=== PATIENT | male | born 1940 | race Caucasian/White ===

== ENCOUNTER 2017-03-18 16:39 | Inpatient (IN) ==
--- NOTE | 2017-03-18 17:13 | Emergency Department Note ---
Disposition Clinical Impression: Fluid retention, Peripheral edema, Cellulitis, Elevated troponin, Foot contusion Disposition: Admitted As Inpatient Condition: Good Referrals: Festus Joe DO [Primary Care Provider] - Forms: ED Satisfaction Letter General Adult HPI - General Chief complaint: ED Extremity Problem,Nontraumatic Stated complaint: bilateral leg swelling/weakness Time Seen by Provider: 03/18/17 16:53 Source: patient, EMS Limitations: no limitations Nursing Notes Reviewed: Yes Vital Signs Reviewed: Yes - History of Present Illness Pain Scale: 0 - Related Data Home Medications Medication Instructions Recorded Confirmed Bumetanide [Bumex] 2 mg PO DAILY 04/29/15 01/29/16 Metformin HCl [Fortamet] 1,000 mg PO BID 04/29/15 01/29/16 Methadone 20 mg PO Q8HR 04/29/15 01/29/16 OxyCODONE/APAP 10/325 [Percocet 1 each PO Q8HR PRN 04/29/15 01/29/16 10/325 MG] Metoprolol XL (24 HR) Succ [Toprol 25 mg PO DAILY 04/30/15 01/29/16 Xl] Previous Rx's Medication Instructions Recorded Lactobacillus [Culturelle] 1 each PO BID #14 cap.sprink 05/02/15 Rivaroxaban [Xarelto] 20 mg PO DAILY #30 tablet 05/02/15 Amoxicillin/Clavulanate [Augmentin] 875 mg PO BIDWM #20 tablet 01/29/16 Hydrocodone/Acetaminophen [[place] 1 each PO Q6H #16 tablet 01/29/16 5-325 Tablet] predniSONE [PredniSONE] 40 mg PO DAILY 5 Days tablet 01/29/16 Allergies Allergy/AdvReac Type Severity Reaction Status Date / Time No Known Allergies Allergy Verified 01/29/16 11:20 Past Medical History - Past Medical History Medical history: Reports: atrial fibrillation, cardiomyopathy, CHF, coronary artery disease, diabetes, hyperlipidemia, hypertension, peripheral artery disease, venous stasis Psychiatric history: Reports: anxiety - Social History Smoking Status: Former smoker Alcohol use: Reports: none Drug use: Reports: none Physical Exam - General Limitations: no limitations General appearance: alert, in no apparent distress Course Vital Signs Temperature 97.8 F 03/18/17 16:51 Pulse Rate 63 03/18/17 16:51 Respiratory Rate 18 03/18/17 16:51 Blood Pressure 197/100 03/18/17 16:51 O2 Sat by Pulse Oximetry 95 03/18/17 16:51 Temperature 97.8 F 03/18/17 16:51 Pulse Rate 61 03/18/17 18:28 Respiratory Rate 16 03/18/17 18:28 Blood Pressure 178/88 03/18/17 18:28 O2 Sat by Pulse Oximetry 98 03/18/17 18:28 Oxygen Delivery Oxygen Delivery Nasal Cannula Medical Decision Making - MDM Narrative Medical decision making narrative: I examined this patient and my medical decision-making was reviewed with the Resident Physician. I agree with the documented findings, disposition and treatment plan as described except to the extent set forth below. Patient seen and evaluated by the ER resident myself, I agree with her evaluation and management plan supervised the care of the patient's stay. Patient presents today with swelling edematous legs bilaterally say stopped his Lasix for 5 days as yet to take anymore so short miss of breath, but denies any chest pain. He is also diabetic and has a lesion on the anterior gonzalez surface of the leg and on his left toes as he said he got them caught underneath a piece of furniture. He does have pain in the area. He is not febrile at home. He is also supposed be on Xarelto for atrial fibrillation, but did not like taking it so he says that his doctor told him as well as he takes ibuprofen he should be fine. Going to go ahead and do a lab workup on him make sure that his legs are infected. Make sure there is no bony injury or foreign body, start him on IV antibiotics and then he will need admission. We will rule him out for cardiac cause also. 1750 hrs.: Patient's initial chest x-ray is negative for signs of CHF but he does large heart. We will start him on IV antibiotics for his leg. Chest X-Ray 03/18/17 17:10 IMPRESSION: 1. No acute cardiopulmonary abnormality. 2. Cardiomegaly. D/ / Amador Stockton MD / Amador Stockton MD Interpreting Provider: Amador Stockton MD Foot X-Ray 03/18/17 17:11 IMPRESSION: 1. No acute osseous abnormality of the left foot. 2. Osteopenia. 3. Diffuse soft tissue swelling. D/ / Amador Stockton MD / Amador Stockton MD Interpreting Provider: Amador Stockton MD 1818 hrs.: Patient asked that we put a Holm in because he is getting Lasix and a be urinating a lot. So we will go ahead and do that. Waiting on the rest of his labs return. 1830 hrs.: Spoke with hospitalist agreed to admission. Impression is bilateral lower extremity edema. #2 is cellulitis left leg. #3 is contusions and abrasions left toes. Number for his noncompliance of medication. - Lab Data Result diagrams: 03/18/17 17:42 03/18/17 17:42 Lab Results 03/18/17 03/18/17 03/18/17 Range/Units 17:42 17:42 17:42 WBC 5.4 (4.3-11.1) K/mcL RBC 3.65 L (4.19-5.50) M/mcL Hgb 11.1 L (12.9-16.9) g/dL Hct 32.8 L (37.5-50.1) % MCV 89.9 (83.0-100.0) fL MCH 30.4 (28.0-33.3) pg MCHC 33.8 (31.6-35.5) g/dL RDW 13.5 (11.5-14.5) % Plt Count 147 (140-400) K/mcL MPV 9.5 (9.4-12.4) fL Immature Gran % 0.2 (0-4) % Seg Neutrophils % 74.5 % Lymphocytes % 16.2 % Monocytes % 5.2 % Eosinophils % 3.5 % Basophils % 0.4 % Neutrophils # 4.0 (1.6-8.9) K/mcL Lymphocytes # 0.9 (0.6-4.6) K/mcL Monocytes # 0.3 (0.0-1.3) K/mcL Eosinophils # 0.2 (0.0-0.6) K/mcL Basophils # 0.0 (0.0-0.2) K/mcL Immature Plt Fraction 3.4 (1.1-6.1) % Sodium 138 (136-145) mEq/L Potassium 4.3 (3.5-4.5) mEq/L Chloride 103 (98-109) mEq/L Carbon Dioxide 25 (19-29) mEq/L BUN 14 (8-26) mg/dL Creatinine 1.32 H (0.72-1.25) mg/dL Est GFR ( Amer) > 60 (> 60) Est GFR (Non-Af Amer) 53 L (> 60) BUN/Creatinine Ratio 11 (6-26) Glucose 311 H (70-99) mg/dL Calculated Osmolality 298 (280-300) Calcium 8.7 (8.6-10.8) mg/dL Magnesium 1.5 L (1.6-2.6) mg/dL Total Bilirubin 0.6 (0.2-1.2) mg/dL Direct Bilirubin 0.3 (0.0-0.5) mg/dL Indirect Bilirubin 0.3 (0.0-1.2) mg/dL AST 19 (5-34) Units/L ALT 22 (0-55) Units/L Alkaline Phosphatase 129 H (38-126) Units/L Troponin I (0-0.03) ng/mL B-Natriuretic Peptide 278 H (0-100) pg/mL Serum Total Protein 7.1 (6.0-8.3) g/dL Albumin 3.3 L (3.5-5.0) g/dL Globulin 3.8 H (2.4-3.5) g/dL Albumin/Globulin Ratio 0.9 L (1.1-2.2) Urine Color (Yellow) Urine Clarity (Clear) Urine pH (5.0-8.0) pH Units Ur Specific [place] (1.010-1.025) Urine Protein (Neg-Trace) mg/dL Urine Glucose (UA) (Normal) mg/dL Urine Ketones (Negative) mg/dL Urine Blood (Negative) Urine Nitrite (Negative) Urine Bilirubin (Negative) Urine Urobilinogen (Normal) mg/dL Ur Leukocyte Esterase (Negative) Urine Microscopic RBC (0-3) per hpf Urine Microscopic WBC (0-3) per hpf Ur Squamous Epith Cells (None-Few) per lpf Urine Bacteria (None-Few) per hpf Hyaline Casts (None-Few) per lpf Ur Culture Indicated? (NO) 03/18/17 03/18/17 Range/Units 17:42 18:25 WBC (4.3-11.1) K/mcL RBC (4.19-5.50) M/mcL Hgb (12.9-16.9) g/dL Hct (37.5-50.1) % MCV (83.0-100.0) fL MCH (28.0-33.3) pg MCHC (31.6-35.5) g/dL RDW (11.5-14.5) % Plt Count (140-400) K/mcL MPV (9.4-12.4) fL Immature Gran % (0-4) % Seg Neutrophils % % Lymphocytes % % Monocytes % % Eosinophils % % Basophils % % Neutrophils # (1.6-8.9) K/mcL Lymphocytes # (0.6-4.6) K/mcL Monocytes # (0.0-1.3) K/mcL Eosinophils # (0.0-0.6) K/mcL Basophils # (0.0-0.2) K/mcL Immature Plt Fraction (1.1-6.1) % Sodium (136-145) mEq/L Potassium (3.5-4.5) mEq/L Chloride (98-109) mEq/L Carbon Dioxide (19-29) mEq/L BUN (8-26) mg/dL Creatinine (0.72-1.25) mg/dL Est GFR ( Amer) (> 60) Est GFR (Non-Af Amer) (> 60) BUN/Creatinine Ratio (6-26) Glucose (70-99) mg/dL Calculated Osmolality (280-300) Calcium (8.6-10.8) mg/dL Magnesium (1.6-2.6) mg/dL Total Bilirubin (0.2-1.2) mg/dL Direct Bilirubin (0.0-0.5) mg/dL Indirect Bilirubin (0.0-1.2) mg/dL AST (5-34) Units/L ALT (0-55) Units/L Alkaline Phosphatase (38-126) Units/L Troponin I 0.04 H* (0-0.03) ng/mL B-Natriuretic Peptide (0-100) pg/mL Serum Total Protein (6.0-8.3) g/dL Albumin (3.5-5.0) g/dL Globulin (2.4-3.5) g/dL Albumin/Globulin Ratio (1.1-2.2) Urine Color Yellow (Yellow) Urine Clarity Clear (Clear) Urine pH 6.0 (5.0-8.0) pH Units Ur Specific [place] 1.015 (1.010-1.025) Urine Protein Trace (Neg-Trace) mg/dL Urine Glucose (UA) 500 H (Normal) mg/dL Urine Ketones Negative (Negative) mg/dL Urine Blood Negative (Negative) Urine Nitrite Negative (Negative) Urine Bilirubin Negative (Negative) Urine Urobilinogen Normal (Normal) mg/dL Ur Leukocyte Esterase Negative (Negative) Urine Microscopic RBC 0-3 (0-3) per hpf Urine Microscopic WBC 0-3 (0-3) per hpf Ur Squamous Epith Cells Moderate H (None-Few) per lpf Urine Bacteria None Seen (None-Few) per hpf Hyaline Casts None Seen (None-Few) per lpf Ur Culture Indicated? NO (NO)
[2017-03-18] MEDS ORDERED: Furosemide 40 MG/4 ML VIAL IVP ONE (17:15)
[2017-03-18 17:51] LABS: Basophils % 0.4 %; Eosinophils # 0.2 K/mcL (0.0-0.6); Eosinophils % 3.5 %; Hematocrit 32.8 % (37.5-50.1); Hemoglobin 11.1 g/dL (12.9-16.9); Immature Granulocytes % 0.2 % (0-4); Immature Platelets 3.4 % (1.1-6.1); Lymphocytes # 0.9 K/mcL (0.6-4.6); Lymphocytes % 16.2 %; Mean Corpuscular HGB Conc 33.8 g/dL (31.6-35.5); Mean Corpuscular Hemoglobin 30.4 pg (28.0-33.3); Mean Corpuscular Volume 89.9 fL (83.0-100.0); Mean Platelet Volume 9.5 fL (9.4-12.4); Monocytes # 0.3 K/mcL (0.0-1.3); Monocytes % 5.2 %; Platelet Count 147 K/mcL (140-400); Red Blood Count 3.65 M/mcL (4.19-5.50); Red Cell Distribution Width 13.5 % (11.5-14.5); Segmented Neutrophils % 74.5 %
--- NOTE | 2017-03-18 17:54 | Emergency Department Note ---
Disposition Clinical Impression: Fluid retention, Peripheral edema, Elevated troponin Cellulitis Qualifiers: Site of cellulitis: unspecified site Qualified Code(s): L03.90 - Cellulitis, unspecified Foot contusion Qualifiers: Encounter type: initial encounter Laterality: left Qualified Code(s): S90.32XA - Contusion of left foot, initial encounter Disposition: Admitted As Inpatient Condition: Good Referrals: Festus Joe DO [Primary Care Provider] - Forms: ED Satisfaction Letter Time of Disposition: 18:43 General Adult HPI - General Chief complaint: ED Extremity Problem,Nontraumatic Stated complaint: bilateral leg swelling/weakness Time Seen by Provider: 03/18/17 16:53 Source: patient, EMS Mode of arrival: EMS Limitations: no limitations Nursing Notes Reviewed: Yes Vital Signs Reviewed: Yes - History of Present Illness HPI Narrative: 77-year-old male presenting to the emergency department with a chief complaint of bilateral lower extremity swelling. Patient states he has a history of CHF and is currently on Bumex at home. He states he got taking his medication and has not taken in the past 5 days. Patient denies any chest pain or shortness of breath. He defervesced 3+ pitting edema on exam. Patient also states he tripped and kicked his futon at home with his left foot. Patient states he has had left foot pain but has been able to ambulate since the incident. Patient also has complaint of left hip decubitus ulcer that is currently being treated at home. He states last admission to the hospital was over a year ago for fluid retention and cellulitis. Patient denies any fevers at home. Pain Scale: 0 - Related Data Home Medications Medication Instructions Recorded Confirmed Bumetanide [Bumex] 2 mg PO DAILY 04/29/15 01/29/16 Metformin HCl [Fortamet] 1,000 mg PO BID 04/29/15 01/29/16 Methadone 20 mg PO Q8HR 04/29/15 01/29/16 OxyCODONE/APAP 10/325 [Percocet 1 each PO Q8HR PRN 04/29/15 01/29/16 10/325 MG] Metoprolol XL (24 HR) Succ [Toprol 25 mg PO DAILY 04/30/15 01/29/16 Xl] Previous Rx's Medication Instructions Recorded Lactobacillus [Culturelle] 1 each PO BID #14 cap.sprink 05/02/15 Rivaroxaban [Xarelto] 20 mg PO DAILY #30 tablet 05/02/15 Amoxicillin/Clavulanate [Augmentin] 875 mg PO BIDWM #20 tablet 01/29/16 Hydrocodone/Acetaminophen [[place] 1 each PO Q6H #16 tablet 01/29/16 5-325 Tablet] predniSONE [PredniSONE] 40 mg PO DAILY 5 Days tablet 01/29/16 Allergies Allergy/AdvReac Type Severity Reaction Status Date / Time No Known Allergies Allergy Verified 01/29/16 11:20 All systems ED: reviewed and negative except as stated. Constitutional: Denies: fever, chills Eyes: Reports: as per HPI ENT ED: Reports: as per HPI Cardiovascular: Denies: chest pain, palpitations Respiratory: Denies: cough, dyspnea, wheezes Gastrointestinal: Denies: abdominal pain, nausea, vomiting Genitourinary: Reports: as per HPI Musculoskeletal: Reports: as per HPI Integumentary: Reports: as per HPI Neurological: Reports: as per HPI Psychiatric: Reports: as per HPI Endocrine: Reports: as per HPI Hematological/Lymphatic: Reports: as per HPI Allergic/Immunologic: Reports: as per HPI Past Medical History - Past Medical History Attestation: Yes The following information was validated with the patient. Medical history: Reports: atrial fibrillation, cardiomyopathy, CHF, coronary artery disease, diabetes, hyperlipidemia, hypertension, peripheral artery disease, venous stasis Psychiatric history: Reports: anxiety - Social History Smoking Status: Former smoker Alcohol use: Reports: none Drug use: Reports: none Physical Exam - General Limitations: no limitations General appearance: alert, in no apparent distress - Head Head exam: atraumatic, normocephalic, normal inspection - Eye Eye exam: Present: normal appearance. Absent: scleral icterus, conjunctival injection - Chest Chest inspection: Present: normal inspection, symmetric chest wall rise. Absent : tenderness, rash - Respiratory Respiratory exam: Present: other (Decreased breath sounds anterior and posterior bilaterally). Absent: respiratory distress, wheezes - Cardiovascular Cardiovascular exam: Present: regular rate, normal rhythm, normal heart sounds - Abdominal Exam Abdominal exam: Present: soft, Non-Tender. Absent: distention, guarding, rebound - Extremities Exam Extremities exam: Present: full ROM, other (3+ pitting edema in the bilateral lower extremities. Signs of venous stasis. Superficial ulcer noted in the left anterior tibia. Left foot is tender to touch with multiple superficial abrasions and nail avulsion noted.) - Neurological Exam Neurological exam: Present: alert, oriented X3 - Psychiatric Psychiatric exam: Present: normal affect, normal mood - Skin Skin exam: Present: warm, intact Course Course Narrative: 77-year-old male presenting to the emergency Department chief complaint of bilateral lower extremity swelling. Patient has a history of CHF and has stopped taking his Bumex at home. Patient also has a left foot injury. We will perform basic lab workup on the patient including blood cultures, CBC, CMP and BNP and troponin. We will also obtain an x-ray of the chest and foot. Patient's disposition will be admission to the hospital pending lab results. Patient's alert and oriented 3 in the room and stable vital signs at this time. He agrees with this plan. Superficial abrasion noted over the hip that he has covered for decubiti looks well healing with no discharge redness or swelling around the area. There is a nonhealing superficial ulcer noted on the tibia. We will start the patient on vancomycin as well. - Reevaluation(s) Reevaluation #1: Patient's troponin elevated at 0.04. He does have chronic kidney disease with stable creatinine level. He also has large amount of glucose in his urine but no urinary tract infection. Patient has no white blood cell count at this time. Patient is alert and oriented 3 in the room with stable vital signs at this time. We will plan to admit the patient at this time. I spoke with the hospitalist on-call Dr. Brewster who agrees to accept the patient at this time. Time: 18:41 Vital Signs Temperature 97.8 F 03/18/17 16:51 Pulse Rate 63 03/18/17 16:51 Respiratory Rate 18 03/18/17 16:51 Blood Pressure 197/100 03/18/17 16:51 O2 Sat by Pulse Oximetry 95 03/18/17 16:51 Temperature 97.8 F 03/18/17 16:51 Pulse Rate 61 03/18/17 18:28 Respiratory Rate 16 03/18/17 18:28 Blood Pressure 178/88 03/18/17 18:28 O2 Sat by Pulse Oximetry 98 03/18/17 18:28 Oxygen Delivery Oxygen Delivery Nasal Cannula Medical Decision Making - Lab Data Result diagrams: 03/18/17 17:42 03/18/17 17:42 Lab Results 03/18/17 03/18/17 03/18/17 Range/Units 17:42 17:42 17:42 WBC 5.4 (4.3-11.1) K/mcL RBC 3.65 L (4.19-5.50) M/mcL Hgb 11.1 L (12.9-16.9) g/dL Hct 32.8 L (37.5-50.1) % MCV 89.9 (83.0-100.0) fL MCH 30.4 (28.0-33.3) pg MCHC 33.8 (31.6-35.5) g/dL RDW 13.5 (11.5-14.5) % Plt Count 147 (140-400) K/mcL MPV 9.5 (9.4-12.4) fL Immature Gran % 0.2 (0-4) % Seg Neutrophils % 74.5 % Lymphocytes % 16.2 % Monocytes % 5.2 % Eosinophils % 3.5 % Basophils % 0.4 % Neutrophils # 4.0 (1.6-8.9) K/mcL Lymphocytes # 0.9 (0.6-4.6) K/mcL Monocytes # 0.3 (0.0-1.3) K/mcL Eosinophils # 0.2 (0.0-0.6) K/mcL Basophils # 0.0 (0.0-0.2) K/mcL Immature Plt Fraction 3.4 (1.1-6.1) % Sodium 138 (136-145) mEq/L Potassium 4.3 (3.5-4.5) mEq/L Chloride 103 (98-109) mEq/L Carbon Dioxide 25 (19-29) mEq/L BUN 14 (8-26) mg/dL Creatinine 1.32 H (0.72-1.25) mg/dL Est GFR ( Amer) > 60 (> 60) Est GFR (Non-Af Amer) 53 L (> 60) BUN/Creatinine Ratio 11 (6-26) Glucose 311 H (70-99) mg/dL Calculated Osmolality 298 (280-300) Calcium 8.7 (8.6-10.8) mg/dL Magnesium 1.5 L (1.6-2.6) mg/dL Total Bilirubin 0.6 (0.2-1.2) mg/dL Direct Bilirubin 0.3 (0.0-0.5) mg/dL Indirect Bilirubin 0.3 (0.0-1.2) mg/dL AST 19 (5-34) Units/L ALT 22 (0-55) Units/L Alkaline Phosphatase 129 H (38-126) Units/L Troponin I (0-0.03) ng/mL B-Natriuretic Peptide 278 H (0-100) pg/mL Serum Total Protein 7.1 (6.0-8.3) g/dL Albumin 3.3 L (3.5-5.0) g/dL Globulin 3.8 H (2.4-3.5) g/dL Albumin/Globulin Ratio 0.9 L (1.1-2.2) Urine Color (Yellow) Urine Clarity (Clear) Urine pH (5.0-8.0) pH Units Ur Specific [place] (1.010-1.025) Urine Protein (Neg-Trace) mg/dL Urine Glucose (UA) (Normal) mg/dL Urine Ketones (Negative) mg/dL Urine Blood (Negative) Urine Nitrite (Negative) Urine Bilirubin (Negative) Urine Urobilinogen (Normal) mg/dL Ur Leukocyte Esterase (Negative) Urine Microscopic RBC (0-3) per hpf Urine Microscopic WBC (0-3) per hpf Ur Squamous Epith Cells (None-Few) per lpf Urine Bacteria (None-Few) per hpf Hyaline Casts (None-Few) per lpf Ur Culture Indicated? (NO) 03/18/17 03/18/17 Range/Units 17:42 18:25 WBC (4.3-11.1) K/mcL RBC (4.19-5.50) M/mcL Hgb (12.9-16.9) g/dL Hct (37.5-50.1) % MCV (83.0-100.0) fL MCH (28.0-33.3) pg MCHC (31.6-35.5) g/dL RDW (11.5-14.5) % Plt Count (140-400) K/mcL MPV (9.4-12.4) fL Immature Gran % (0-4) % Seg Neutrophils % % Lymphocytes % % Monocytes % % Eosinophils % % Basophils % % Neutrophils # (1.6-8.9) K/mcL Lymphocytes # (0.6-4.6) K/mcL Monocytes # (0.0-1.3) K/mcL Eosinophils # (0.0-0.6) K/mcL Basophils # (0.0-0.2) K/mcL Immature Plt Fraction (1.1-6.1) % Sodium (136-145) mEq/L Potassium (3.5-4.5) mEq/L Chloride (98-109) mEq/L Carbon Dioxide (19-29) mEq/L BUN (8-26) mg/dL Creatinine (0.72-1.25) mg/dL Est GFR ( Amer) (> 60) Est GFR (Non-Af Amer) (> 60) BUN/Creatinine Ratio (6-26) Glucose (70-99) mg/dL Calculated Osmolality (280-300) Calcium (8.6-10.8) mg/dL Magnesium (1.6-2.6) mg/dL Total Bilirubin (0.2-1.2) mg/dL Direct Bilirubin (0.0-0.5) mg/dL Indirect Bilirubin (0.0-1.2) mg/dL AST (5-34) Units/L ALT (0-55) Units/L Alkaline Phosphatase (38-126) Units/L Troponin I 0.04 H* (0-0.03) ng/mL B-Natriuretic Peptide (0-100) pg/mL Serum Total Protein (6.0-8.3) g/dL Albumin (3.5-5.0) g/dL Globulin (2.4-3.5) g/dL Albumin/Globulin Ratio (1.1-2.2) Urine Color Yellow (Yellow) Urine Clarity Clear (Clear) Urine pH 6.0 (5.0-8.0) pH Units Ur Specific [place] 1.015 (1.010-1.025) Urine Protein Trace (Neg-Trace) mg/dL Urine Glucose (UA) 500 H (Normal) mg/dL Urine Ketones Negative (Negative) mg/dL Urine Blood Negative (Negative) Urine Nitrite Negative (Negative) Urine Bilirubin Negative (Negative) Urine Urobilinogen Normal (Normal) mg/dL Ur Leukocyte Esterase Negative (Negative) Urine Microscopic RBC 0-3 (0-3) per hpf Urine Microscopic WBC 0-3 (0-3) per hpf Ur Squamous Epith Cells Moderate H (None-Few) per lpf Urine Bacteria None Seen (None-Few) per hpf Hyaline Casts None Seen (None-Few) per lpf Ur Culture Indicated? NO (NO) - EKG Data EKG #1 EKG attestation: Yes I reviewed and interpreted this EKG. EKG results narrative: Multiple artifacts no appreciable P waves possible Atrial fibrillation. 6 bpm. QRS 97, QTC 377. Incomplete right bundle-branch block and nonspecific ST and T-wave abnormality. Compared to previous EKG completed on 04/29/2015no significant changes noted.
[2017-03-18] MEDS ORDERED: Vancomycin 2,000 MG in D5% in Water 250 ML IVPB SCH (18:00)
[2017-03-18 18:05] LABS: Alanine Aminotransferase 22 Units/L (0-55); Albumin 3.3 g/dL (3.5-5.0); Albumin/Globulin Ratio 0.9 (1.1-2.2); Alkaline Phosphatase 129 Units/L (38-126); Aspartate Amino Transferase 19 Units/L (5-34); BUN/Creatinine Ratio 11 (6-26); Bilirubin,Direct 0.3 mg/dL (0.0-0.5); Bilirubin,Indirect 0.3 mg/dL (0.0-1.2); Bilirubin,Total 0.6 mg/dL (0.2-1.2); Blood Urea Nitrogen 14 mg/dL (8-26); Calcium 8.7 mg/dL (8.6-10.8); Carbon Dioxide 25 mEq/L (19-29); Chloride 103 mEq/L (98-109); Globulin 3.8 g/dL (2.4-3.5); Glucose 311 mg/dL (70-99); Magnesium 1.5 mg/dL (1.6-2.6); Osmolality,Calculated 298 (280-300); Potassium 4.3 mEq/L (3.5-4.5); Sodium 138 mEq/L (136-145); Total Protein 7.1 g/dL (6.0-8.3); eGFR For African Americans > 60 (> 60); eGFR For Non-African Americans 53 (> 60)
[2017-03-18] MEDS ORDERED: Vancomycin 2,000 MG in D5% in Water 500 ML IVPB ONE (18:16)
[2017-03-18] MEDS ORDERED: Aspirin 325 MG TABLET PO ONE (18:19)
[2017-03-18 18:31] LABS: Bilirubin,Urine Negative (Negative); Blood,Urine Negative (Negative); Clarity,Urine Clear (Clear); Color,Urine Yellow (Yellow); Glucose,Urine (UA) 500 mg/dL (Normal); Ketones,Urine Negative (Negative); Leukocyte Esterase,Urine Negative (Negative); Nitrite,Urine Negative (Negative); Protein,Urine Trace mg/dL (Neg-Trace); Specific Gravity,Urine 1.015 (1.010-1.025); Urobilinogen,Urine Normal (Normal)
[2017-03-18 18:33] LABS: Bacteria,Urine None Seen per hpf (None-Few); Hyaline Casts,Urine None Seen per lpf (None-Few); RBC,Urine 0-3 per hpf (0-3); Squamous Epithelial Cell,Urine Moderate per lpf (None-Few); WBC,Urine 0-3 per hpf (0-3)
[2017-03-18] MEDS ORDERED: Naloxone 0.4 MG/ML INJ IVP PRN (19:33)
[2017-03-18] MEDS ORDERED: Ondansetron 4 MG/2 ML VIAL IVP PRN (19:33)
[2017-03-18] MEDS ORDERED: *HR* Morphine 2 MG/ML SYRINGE IVP PRN (19:33)
[2017-03-18] MEDS ORDERED: Acetaminophen 325 MG TABLET PO PRN (19:33)
[2017-03-18] MEDS ORDERED: *HR* Dextrose 50 % in Water (Syg) 50 ML SYRINGE IVP PRN (19:40)
[2017-03-18] MEDS ORDERED: Dextrose Gel 15 GM PO PRN ×2 (19:40)
[2017-03-18] MEDS ORDERED: D5% in Water 1,000 ML IVC PRN (19:40)
--- NOTE | 2017-03-18 21:07 | Internal Med History&Physical ---
Date of Encounter: 03/18/17 Time of Encounter: 20:30 Assessment and Plan (1) CHF (congestive heart failure) Current visit: Yes Status: Acute Acute exacerbation of chronic CHF, unspecified type, unknown LVEF - causing shortness of breath and worsening bilateral leg edema Continue IV Lasix, Toprol-XL, Aspirin, Simvastatin, O2 via NC Patient states he has not taken Bumex in several days, and states he stopped Xarelto a few years ago EKG - atrial fibrillation with no acute ST-T changes Troponin - 0.04, cycle troponin BNP - 278 Chest x-ray - cardiomegaly, no acute cardiopulmonary process Echocardiogram - pending Ultrasound Dopplers - pending Fluid restriction, cardiac telemetry, strict intake and output, daily weight, pulse ox, labs in a.m., monitor closely Qualifiers: Congestive heart failure type: unspecified congestive heart failure type Congestive heart failure chronicity: acute on chronic Qualified Code(s): I50.9 - Heart failure, unspecified (2) Cellulitis Current visit: Yes Status: Acute Acute cellulitis of left lower leg - with avulsion of left great toenail and also over left lower leg - with chronic stasis dermatitis Continue empiric IV Vancomycin Cultures - pending Foot x-ray - diffuse soft tissue swelling Ultrasound Doppler - pending Podiatry consult Dressing change daily to wounds, wound care consult Qualifiers: Site of cellulitis: extremity Site of cellulitis of extremity: lower extremity Laterality: left Qualified Code(s): L03.116 - Cellulitis of left lower limb (3) Atrial fibrillation Current visit: Yes Status: Chronic Chronic atrial fibrillation, rate controlled Continue home dose of Toprol-XL Patient states he stopped taking Xarelto a few years ago - we will need to confirm this Qualifiers: Atrial fibrillation type: chronic Qualified Code(s): I48.2 - Chronic atrial fibrillation (4) Stasis dermatitis of both legs Current visit: Yes Status: Chronic Chronic stasis dermatitis with bilateral lower legs severe edema Dressing change to wound daily Podiatry consult (5) Diabetes Current visit: Yes Status: Chronic Type 2 diabetes mellitus, [id number], hyperglycemia Continue insulin sliding scale, glucose checks Qualifiers: Diabetes mellitus type: type 2 Diabetes mellitus complication status: with kidney complications Diabetes mellitus complication detail: with chronic kidney disease 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 insulin 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: without jail use Chronic kidney disease stage: stage 3 (moderate) Qualified Code(s): E11.22 - Type 2 diabetes mellitus with diabetic chronic kidney disease; N18.3 - Chronic kidney disease, stage 3 (moderate); N18.3 - Chronic kidney disease, stage 3 (moderate) (6) Hypertension Current visit: Yes Status: Chronic Essential hypertension, controlled, monitor Continue home dose of Toprol-XL Qualifiers: Hypertension type: essential hypertension Qualified Code(s): I10 - Essential (primary) hypertension (7) Chronic kidney disease Current visit: Yes Status: Chronic Chronic kidney disease stage III, stable - creatinine and GFR likely at baseline Monitor labs closely Qualifiers: Chronic kidney disease stage: stage 3 (moderate) Qualified Code(s): N18.3 - Chronic kidney disease, stage 3 (moderate) (8) DVT prophylaxis Current visit: Yes Status: Acute Heparin subcutaneous every 8 hours Internal Medicine - H&P: HPI Chief complaint: Shortness of breath, edema Admitted From: Emergency Dept Plans for Post Hospital Care: Home History of present illness: Mr. Miller is a 77 year old male with PMH of chronic atrial fibrillation, hypertension, diabetes, CHF, cardiomyopathy, hyperlipidemia, peripheral artery disease, possible coronary artery disease, venous stasis with chronic lower leg wounds and anxiety. Patient presents to the ED with complaints of shortness of breath and worsening bilateral lower leg edema. Examined in the room. Patient is awake and alert. Not in any distress. Able to provide history. No family members at bedside. Patient is oriented to place and person. He is able to state the right date but not the year. He is able to answer questions appropriately. Able to verbalize well and follows commands well. Patient states he developed shortness of breath and worsening bilateral leg swelling about 2-4 days ago. He states he is not taking his Bumex over the past 5-6 days. Patient states it makes him go to the bathroom a lot, so he stopped taking it. Shortness of breath is worse with exertion and when laying flat. He denies chest pain. Patient states about 5 weeks ago he accidentally tripped and hurt his left great toe. There is now a wound which does not seem to be healing well. Patient states he has been cleaning the wound at home. Patient also states he has stopped taking Xarelto a few years ago because of the bad reviews that he read about. Patient states he also has a left decubitus ulcer which is being treated at home. He does not see a PCP and does not follow-up with cardiology. It is unclear as to who prescribes his medications. Patient states his made him come to the ED today. Patient denies abdominal pain or vomiting or diarrhea. No fever. No alleviating factors. No other associated symptoms. No other acute complaints. Initial workup in the ED reveals slightly elevated troponin and elevated BNP. Chest x-ray does not show any acute cardiac pulmonary process. X-ray of the left foot shows diffuse soft tissue swelling. EKG shows atrial fibrillation with no acute changes. Patient has been given IV Lasix and IV vancomycin. He is being admitted for acute CHF exacerbation and left lower extremity cellulitis. Patient has been explained about his condition and plan of care. He understood and agreed. No unanswered questions. CODE STATUS full code. Past Med Surg Social Fam HX - Past Medical History Medical history: atrial fibrillation, cardiomyopathy, CHF, coronary artery disease, diabetes, hyperlipidemia, hypertension, peripheral artery disease, venous stasis Psychiatric history: anxiety - Past Surgical History Surgical History: hip replacement (Left hip replacement) - Social History Smoking Status: Former smoker Alcohol use: none Drug use: none - Family History Father Hx Family Cardiac Disorders: Yes Internal Medicine - H&P: Meds Bumetanide [Bumex] 2 mg PO DAILY 04/29/15 [History] Metformin HCl [Fortamet] 1,000 mg PO BID 04/29/15 [History] Methadone 20 mg PO Q8HR 04/29/15 [History] OxyCODONE/APAP 10/325 [Percocet 10/325 MG] 1 each PO Q8HR PRN 04/29/15 [History] Metoprolol XL (24 HR) Succ [Toprol Xl] 25 mg PO DAILY 04/30/15 [History] Lactobacillus [Culturelle] 1 each PO BID #14 cap.sprink 05/02/15 [Rx] Rivaroxaban [Xarelto] 20 mg PO DAILY #30 tablet 05/02/15 [Rx] Amoxicillin/Clavulanate [Augmentin] 875 mg PO BIDWM #20 tablet 01/29/16 [Rx] Hydrocodone/Acetaminophen [Loa 5-325 Tablet] 1 each PO Q6H #16 tablet [Rx] predniSONE [PredniSONE] 40 mg PO DAILY 5 Days tablet 01/29/16 [Rx] 3 Allergy/AdvReac Type Severity Reaction Status Date / Time No Known Allergies Allergy Verified 01/29/16 11:20 All Systems PM: A 10-system review of systems was performed and is negative for pertinent findings except as documented above in the HPI. - Constitutional Constitutional: fatigue, no fever(s), no weakness - EENT Eyes: no blurry vision - Cardiovascular Cardiovascular ROS IM: dyspnea, dyspnea on exertion, edema, orthopnea, no chest pain, no diaphoresis, no lightheadedness, no palpitations, no syncope - Respiratory Respiratory: dyspnea, dyspnea on exertion, no cough, no hemoptysis, no wheezing , no chest congestion - Gastrointestinal Gastrointestinal: no abdominal pain, no bloating, no diarrhea, no hematochezia, no loose stools, no nausea, no vomiting - Genitourinary Genitourinary ROS male: no dysuria - Musculoskeletal Musculoskeletal ROS IM: no back pain - Neurological Neurological ROS: no abnormal gait, no confusion, no dizziness, no focal weakness, no numbness, no tingling - Constitutional Vitals: Temp Pulse Resp BP Pulse Ox 97.5 F L 62 20 170/90 99 03/18/17 20:11 03/18/17 20:11 03/18/17 20:11 03/18/17 20:11 03/18/17 20:11 General appearance: Present: cooperative, A&O X 3, morbidly obese, pleasant, no acute distress, answers questions appropriately Exam: Patient is able to verbalize and follows verbal commands. Seems chronically ill. He is oriented to place and person and states the right date, but not the right year. - Head Head exam: Present: atraumatic - Eye Eye exam: Present: EOMI - ENT ENT exam: Present: mucous membranes dry - Respiratory Respiratory exam: Present: CTAB. Absent: accessory muscle use, rales, respiratory distress, rhonchi, wheezes, tachypnea - Cardiovascular Cardiovascular exam: Present: irregular rhythm, +S1, +S2, systolic murmur - GI/Abdominal GI/Abdominal exam: Present: distended (Obese), soft. Absent: firm, guarding, tenderness - Extremities Exam Extremities exam: Present: pedal edema (Bilateral lower leg 4+ edema), radial pulses palpable and symmetrical. Absent: calf tenderness Additional comments: Chronic stasis dermatitis of both lower legs. Left lower leg cellulitis present. Wound over anterior aspect of left leg. Wound over left great toe with avulsion of left great toe nail. - Skin Additional comments: Left hip decubitus ulcer stage II. Internal Med - H&P Results - Labs CBC & Chem 7: 03/18/17 17:42 03/18/17 17:42
[2017-03-18] MEDS: Insulin LISPRO 300 UNITS/3 ML VIAL SQ SCH (23:47)
[2017-03-18] MEDS: Furosemide 40 MG/4 ML VIAL IVP SCH (23:47)
[2017-03-18] MEDS: *HR* Heparin 5,000 UNIT/ML VIAL SQ SCH (23:48)
[2017-03-19 02:54] LABS: Basophils % 0.5 %; Eosinophils # 0.5 K/mcL (0.0-0.6); Hematocrit 31.5 % (37.5-50.1); Hemoglobin 10.7 g/dL (12.9-16.9); Immature Granulocytes % 0.5 % (0-4); Immature Platelets 3.9 % (1.1-6.1); Lymphocytes # 1.8 K/mcL (0.6-4.6); Lymphocytes % 29.8 %; Mean Corpuscular Hemoglobin 30.5 pg (28.0-33.3); Mean Corpuscular Volume 89.7 fL (83.0-100.0); Mean Platelet Volume 9.2 fL (9.4-12.4); Monocytes # 0.5 K/mcL (0.0-1.3); Neutrophils # 3.1 K/mcL (1.6-8.9); Platelet Count 150 K/mcL (140-400); Red Blood Count 3.51 M/mcL (4.19-5.50); Red Cell Distribution Width 13.4 % (11.5-14.5); Segmented Neutrophils % 53.2 %
[2017-03-19 02:58] LABS: INR 1.3; Prothrombin Time 13.6 Seconds (9.4-12.1)
[2017-03-19 03:07] LABS: Hemoglobin A1C 7.7 %
[2017-03-19 03:10] LABS: BUN/Creatinine Ratio 10 (6-26); Blood Urea Nitrogen 14 mg/dL (8-26); Calcium 8.7 mg/dL (8.6-10.8); Carbon Dioxide 28 mEq/L (19-29); Chloride 102 mEq/L (98-109); Chol/HDL Ratio 5.6 (0-4.9); Cholesterol 179 mg/dL (< 200); Glucose 136 mg/dL (70-99); HDL Cholesterol 32 mg/dL (40-59); LDL Cholesterol,Calculated 131 mg/dL (0-99); Magnesium 2.1 mg/dL (1.6-2.6); Osmolality,Calculated 287 (280-300); Potassium 3.8 mEq/L (3.5-4.5); Sodium 137 mEq/L (136-145); Triglycerides 82 mg/dL (< 150); eGFR For African Americans > 60 (> 60); eGFR For Non-African Americans 50 (> 60)
[2017-03-19] MEDS ORDERED: Vancomycin 1,000 MG in D5% in Water 250 ML IVPB SCH (06:00)
[2017-03-19] MEDS: *HR* Heparin 5,000 UNIT/ML VIAL SQ SCH (06:29)
[2017-03-19] MEDS: Aspirin 81 MG TAB.CHEW PO SCH (08:38)
[2017-03-19] MEDS: Furosemide 40 MG/4 ML VIAL IVP SCH ×2 (08:38→17:28)
[2017-03-19] MEDS: Insulin LISPRO 300 UNITS/3 ML VIAL SQ SCH ×4 (08:39→21:12)
[2017-03-19] MEDS ORDERED: Metoprolol XL (24 HR) Succ 25 MG TAB.ER.24H PO SCH (09:00)
[2017-03-19] MEDS ORDERED: Heparin 25,000 UNIT/500 ML D5W 25,000 UNIT/500 ML MLS IVC SCH (09:30)
[2017-03-19] MEDS ORDERED: *HR* Heparin 5,000 UNIT/ML VIAL IVP PRN ×3 (09:34→09:57)
[2017-03-19] MEDS ORDERED: Perflutren Lipid Microsphere 1.3 ML in 0.9 % Sodium Chloride 8.7 ML IVP ONE (09:42)
[2017-03-19] MEDS: Heparin 25,000 UNIT/500 ML D5W 25,000 UNIT/500 ML MLS IVC SCH (11:46)
--- NOTE | 2017-03-19 13:47 | Cardiology Consult Note ---
<Migdalia Hallman - Last Filed: 03/19/17 13:41> Date of Encounter: 03/19/17 Time of Encounter: 12:00 Assessment and Plan (1) CHF (congestive heart failure) Current Visit: Yes Status: Acute Per cardiology: -Denies being told he has had CHF, however on bumex by PCP. -TTE pending. -BNP 278. -Significant edema noted to bilateral lower extremities. -Weight today 124kg, weight PCP 09/2016 125kg. -On lasix 40mg IV BID inpateint. -Currently net negative 1350ml. -chest x-ray with no acute process. -Strict i/os, fluid restriction, daily weights. -further recommendations pending TTE. -Will continue to monitor. Qualifiers: Congestive heart failure type: unspecified congestive heart failure type Congestive heart failure chronicity: acute on chronic Qualified Code(s): I50.9 - Heart failure, unspecified (2) Atrial fibrillation Current Visit: Yes Status: Chronic Per cardiology: -Known atrial fibrillation. -On beta maddy, -HR controlled. -Chads 2 vasc score 5 (age, HTN, CHF, DM). Currently on heparin drip. Had been on xarelto in outpatient setting. Patient stopped xarelto on his own accord due to seeing a negative commercial regarding medication. -Patient educated on increased risk of CVA/embolic event. Pateint states understanding and agreeable to restart fpc anticoagulation. Of note, prelimiary vascular report positive for DVT. -TTE pending. -Of note, pateint had 3.7 second pause nocturnal. Not diagnosed with sleep apnea. -Beta maddy stopped due to pause. -Will check overnight pulse ox. -Consider EP consult in am. -Consider stress in am pending TTE. Qualifiers: Atrial fibrillation type: chronic Qualified Code(s): I48.2 - Chronic atrial fibrillation (3) Elevated troponin Current Visit: Yes Status: Acute Per cardiology: -Troponins 0.04, 0.05, 0.05, 0.04 in the setting of DVT, CHF. -Denies chest pain. -ECG with no acute ischemic changes. -On heparin drip. -ON asa, statin. Beta maddy stopped for now due to significant pause. -TTE pending. -DO not suspect NSTEMI, suspect demand ischemia related to above. No cardiac rehab warranted. -Further recommendations pending TTE. -WIll make NPO after midnight for ischemic evaluation in am. -Will continue to monitor. Discussion w patient/family: The assessment and plan as outlined above was discussed with the patient who expressed understanding and agreement. All questions were answered. Thank you for involving us in the care of your patient. Please call with any questions. Discussed and reviewed with . History of Present Illness Consult date: 03/19/17 Requesting physician: Fadi Lynch Consult reason: CHF, a.fib Chief complaint: increased edema History of present illness: Mr. Miller is a 77 year old male with a relevant past medical history of a.fib , HTN, DM. Patient reports has known atrial fibrillation and had previous been on anticoagulation, however patient stopped xarelto due to "saw a bad TV commercial about medicine." Patient denies history of CHF, however states he has chronic peripheral edema that he was taking bumex for as prescribed by his PCP. Patient states he has been out of his bumex for several days. 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 Patient denies chest pain or increased shortness of breath. Patient reports fatigue is about baseline. Patient admits to increased peripheral edema. Past Med Surg Social Fam HX - Past Medical History Attestation: Yes The following information was validated with the patient. Source: patient, old records reviewed Medical history: atrial fibrillation, cardiomyopathy, CHF, coronary artery disease, diabetes, hyperlipidemia, hypertension, peripheral artery disease, venous stasis Psychiatric history: anxiety - Past Surgical History Surgical History: hip replacement - Social History Smoking Status: Former smoker Alcohol use: none Drug use: none - Family History Father Hx Family Cardiac Disorders: Yes Medications and Allergies Bumetanide [Bumex] 2 mg PO DAILY 04/29/15 [History] Metformin HCl [Fortamet] 1,000 mg PO BID 04/29/15 [History] Methadone 20 mg PO Q8HR 04/29/15 [History] OxyCODONE/APAP 10/325 [Percocet 10/325 MG] 1 tab PO Q8HR PRN 04/29/15 [History] Metoprolol XL (24 HR) Succ [Toprol Xl] 25 mg PO DAILY 04/30/15 [History] Potassium Chloride [Klor-Con 10] 10 meq PO DAILY 03/19/17 [History] Ramipril [Altace] 10 mg PO DAILY 03/19/17 [History] 3 Allergy/AdvReac Type Severity Reaction Status Date / Time No Known Allergies Allergy Verified 01/29/16 11:20 All Systems Review: A 10-system review of systems was performed and is negative for pertinent findings except as documented above in the HPI. - Cardiovascular Cardiovascular: as per HPI, leg edema Physical Examination Vital Signs, Last 4 Hours Temp Pulse Resp BP Pulse Ox 03/19/17 11:33 97.9 F 64 18 147/77 98 General: Conversant, No Apparent Distress HEENT: Atraumatic, Normocephaly, Mucus Membranes Moist Neck: No JVD, Normal carotid pulses Cardiac: Other (Irregularly irregular) Lungs: Normal Breath Sounds Neuro: Alert and responsive, No focal deficits noted Abdomen: Soft, Non-Tender Skin: No rashes noted on visualized skin, Other (Bilateral lower extremities discolored. ) Musculoskeletal: No Chest Wall Tenderness Extremities: No Clubbing, No Cyanosis, Normal Pulses, Other (3+ bilateral lower extremity pitting edema. ) Results 03/19/17 02:41 03/19/17 02:41 Lab Results Impressions Chest X-Ray 03/18/17 17:10 IMPRESSION: 1. No acute cardiopulmonary abnormality. 2. Cardiomegaly. D/ / Amador Stockton MD / Amador Stockton MD Interpreting Provider: Amador Stockton MD Foot X-Ray 03/18/17 17:11 IMPRESSION: 1. No acute osseous abnormality of the left foot. 2. Osteopenia. 3. Diffuse soft tissue swelling. D/ / Amador Stockton MD / Amador Stockton MD Interpreting Provider: Amador Stockton MD Pulmonary Perfusion Imaging 03/19/17 09:22 IMPRESSION: Low Probability for Pulmonary Embolus. D/ / Ubaldo Julien / Ubaldo Julien Interpreting Provider: Ubaldo Julien Active Medications Acetaminophen (Tylenol) 650 mg PO Q6HR PRN PRN Reason: Mild Pain (1-3) Stop: 09/17/17 19:34 Aspirin (Aspirin) 81 mg PO DAILY ANIBAL Stop: 09/18/17 09:01 Last Admin: 03/19/17 08:38 Dose: 81 mg Dextrose/Water (Dextrose 50% (Syg)) 25 ml IVP AD PRN PRN Reason: Hypoglycemia Stop: 09/17/17 19:41 Furosemide (Lasix) 40 mg IVP BIDDIURETIC ANIBAL Stop: 09/17/17 21:01 Last Admin: 03/19/17 08:38 Dose: 40 mg Glucagon (Glucagen) 1 mg IM ONCE PRN PRN Reason: Hypoglycemia Stop: 09/17/17 19:41 Glucose (Gluctose) 15 gm PO ONCE PRN PRN Reason: Hypoglycemia Stop: 09/17/17 19:41 Glucose (Gluctose) 30 gm PO ONCE PRN PRN Reason: Hypoglycemia Stop: 09/17/17 19:41 Heparin Sodium (Porcine) (Heparin) 8,700 unit 70 unit/kg (8700 unit) IVP Q6HR PRN PRN Reason: SEE COMMENTS Stop: 09/18/17 09:58 Heparin Sodium (Porcine) (Heparin) 4,300 unit 35 unit/kg (4300 unit) IVP Q6H PRN PRN Reason: SEE COMMENTS Stop: 09/18/17 09:58 Dextrose (Dextrose 5%) 1,000 mls @ 100 mls/hr IVC .Q10H PRN PRN Reason: HYPOGLYCEMIA Stop: 09/17/17 19:41 Vancomycin HCl 1,500 mg/ (Dextrose) 250 mls @ 166.67 mls/hr IVPB Q24H ANIBAL Stop: 09/18/17 18:01 Heparin Sodium/Dextrose (Heparin 25,000 Unit/500 Ml D5w) 25,000 unit in 500 mls @ 34.72 mls/hr IVC .[id number] ANIBAL; 14 UNIT/KG/HR PRN Reason: Protocol Stop: 09/18/17 10:01 Last Admin: 03/19/17 11:46 Dose: 14 unit/kg/hr, 34.72 mls/hr Insulin Human Lispro (Humalog) 0 units SQ HS ANIBAL PRN Reason: Protocol Stop: 09/17/17 21:01 Last Admin: 03/18/17 23:47 Dose: 6 units Insulin Human Lispro (Humalog) 0 units SQ TIDAC ANIBAL PRN Reason: Protocol Stop: 09/18/17 07:31 Last Admin: 03/19/17 11:47 Dose: 4 units Morphine Sulfate (Morphine Sulfate) 2 mg IVP Q4HR PRN PRN Reason: Severe Pain (7-10) Stop: 09/17/17 19:34 Naloxone HCl (Narcan) 0.4 mg IVP Q2MIN PRN PRN Reason: Opioid Reversal Stop: 09/17/17 19:34 Ondansetron HCl (Zofran) 4 mg IVP Q8HR PRN PRN Reason: Nausea And Vomiting Stop: 09/17/17 19:34 Simvastatin (Zocor) 20 mg PO HS ANIBAL PRN Reason: Protocol Stop: 09/17/17 21:01 Last Admin: 03/18/17 23:47 Dose: 20 mg Laboratory Tests 03/18/17 03/18/17 03/18/17 17:42 17:42 20:48 Hgb Potassium Creatinine Magnesium Troponin I 0.04 H* 0.05 H* B-Natriuretic Peptide 278 H TSH 03/19/17 03/19/17 03/19/17 02:41 02:41 02:41 Hgb 10.7 L Potassium 3.8 Creatinine 1.38 H Magnesium 2.1 Troponin I 0.05 H* B-Natriuretic Peptide TSH 03/19/17 03/19/17 08:35 08:35 Hgb Potassium Creatinine Magnesium Troponin I 0.04 H* B-Natriuretic Peptide TSH 1.941 - Imaging and Cardiology Chest Xray: report reviewed Echo: pending - EKG Interpretation EKG results cardiology: personally reviewed (ECG with atrial fibrillation, HR 65.), other (Telemetry reviewed with average HR previous 12 hours noted to be 60 atrial fibrillation. PVCs noted. Patient had a 3.7 second pause, nocturnal.) Consult Discharge Plan - Plan Referrals: Kayla Castellanos, [facility] [Primary Care Provider] - <Fish Cano - Last Filed: 03/19/17 22:12> Date of Encounter: 11/26/17 - Attending Attestation I have personally performed a face to face evaluation on this patient. I have reviewed and agree with the care plan. History and Exam by me shows: 1. Acute on chronic diastolic heart failure, improving with IV diuresis. He has been self adjusting his own medications based on TV commercials for the last several years, including discontinuing diuretic and anticoagulation medications. Shortness of breath and lower extremity swelling improving back on diuretic. Echo shows well preserved EF at 55%, 2. Persistant A fib, presenting in RVR, controlled wit beta blockade, however 3.7 second pause noted on tele, pt unaware, will hold beta blockade, but suspect will need PPMKR for Sick Sinus Syndrome, as will require at least one agent to control rapid ventricular response. 3. Elevated troponins, no chest pain or EKG changes, however multple risk factors, will order rogelio/cardiolyte in AM to eval for ischemic substrate. Assessment and Plan Discussion w patient/family: The assessment and plan as outlined above was discussed with the patient and/or family members who expressed understanding and agreement. All questions were answered. Thank you for involving us in the care of your patient. Please call with any questions. History of Present Illness History of present illness: Mr. Miller is a 77 year old male All Systems Review: A 10-system review of systems was performed and is negative for pertinent findings except as documented above in the HPI. Physical Examination Vital Signs, Last 4 Hours Temp Pulse Resp BP Pulse Ox 03/19/17 20:13 98.7 F 53 18 167/78 95 03/19/17 19:48 98 Results 03/19/17 02:41 03/19/17 02:41 Lab Results 03/19/17 03/19/17 03/19/17 02:41 02:41 02:41 WBC 5.9 Hgb 10.7 L Hct 31.5 L Plt Count 150 INR APTT Sodium 137 Potassium 3.8 Chloride 102 Carbon Dioxide 28 BUN 14 Creatinine 1.38 H Glucose 136 H Calcium 8.7 Magnesium 2.1 Troponin I 0.05 H* TSH 03/19/17 03/19/17 03/19/17 02:41 08:35 08:35 WBC Hgb Hct Plt Count INR 1.3 APTT Sodium Potassium Chloride Carbon Dioxide BUN Creatinine Glucose Calcium Magnesium Troponin I 0.04 H* TSH 1.941 03/19/17 18:34 WBC Hgb Hct Plt Count INR APTT 31.2 Sodium Potassium Chloride Carbon Dioxide BUN Creatinine Glucose Calcium Magnesium Troponin I TSH
[2017-03-19] MEDS: Vancomycin 1,500 MG in D5% in Water 250 ML IVPB SCH (17:28)
--- NOTE | 2017-03-19 17:37 | Internal Med Progress Note ---
Date of Encounter: 03/19/17 Time of Encounter: 11:00 - Assessment and plan (1) CHF (congestive heart failure) Current Visit: Yes Status: Acute Assessment and plan: -Patient with bilateral lower extremity edema and shortness of breath secondary to acute CHF. -Echocardiogram pending. -Continue IV diuresis. -Cardiology following and appreciate recommendations. Qualifiers: Congestive heart failure type: unspecified congestive heart failure type Congestive heart failure chronicity: acute on chronic Qualified Code(s): I50.9 - Heart failure, unspecified (2) Elevated troponin Current Visit: Yes Status: Acute Assessment and plan: -Now trending downward; suspect secondary to ischemia. -Echocardiogram pending and cardiology following. (3) Foot contusion Current Visit: Yes Status: Acute Assessment and plan: -Will continue vancomycin -Podiatry consulted and appreciate recommendations. Qualifiers: Encounter type: initial encounter Laterality: left Qualified Code(s): S90.32XA - Contusion of left foot, initial encounter (4) Atrial fibrillation Current Visit: Yes Status: Chronic Assessment and plan: -Controlled on beta maddy but patient discontinued oral anticoagulation medication without medical advice. -Patient currently on heparin drip due to DVT with suspected PE. Qualifiers: Atrial fibrillation type: chronic Qualified Code(s): I48.2 - Chronic atrial fibrillation (5) Hypertension Current Visit: Yes Status: Chronic Assessment and plan: -Controlled; continue home medications. Qualifiers: Hypertension type: essential hypertension Qualified Code(s): I10 - Essential (primary) hypertension (6) Diabetes Current Visit: Yes Status: Chronic Assessment and plan: -Controlled; sliding scale insulin Qualifiers: Diabetes mellitus type: type 2 Diabetes mellitus complication status: with kidney complications Diabetes mellitus complication detail: with chronic kidney disease Diabetes mellitus oil heaterman insulin use: without oil heaterman use Chronic kidney disease stage: stage 3 (moderate) Qualified Code(s): E11.22 - Type 2 diabetes mellitus with diabetic chronic kidney disease; N18.3 - Chronic kidney disease, stage 3 (moderate); N18.3 - Chronic kidney disease, stage 3 (moderate) (7) Chronic kidney disease Current Visit: Yes Status: Chronic Assessment and plan: -Stable; continue to monitor. Qualifiers: Chronic kidney disease stage: stage 3 (moderate) Qualified Code(s): N18.3 - Chronic kidney disease, stage 3 (moderate) (8) DVT prophylaxis Current Visit: Yes Status: Acute Assessment and plan: -Heparin drip - Subjective Interval history: Patient with no issues or complaints this morning. - Constitutional Vitals: Temp Pulse Resp BP Pulse Ox 97.8 F 64 18 173/88 97 03/19/17 15:55 03/19/17 15:55 03/19/17 15:55 03/19/17 15:55 03/19/17 15:55 General appearance: Present: cooperative, A&O X 3, morbidly obese, pleasant, no acute distress, answers questions appropriately - Respiratory Respiratory exam: Present: CTAB. Absent: accessory muscle use, rales, rhonchi, wheezes - Cardiovascular Cardiovascular exam: Present: RRR, +S1, +S2. Absent: diastolic murmur, gallop, rubs, systolic murmur - Expanded Lower Extremities Exam Ankle exam: Present: swelling (Bilateral lower extremity edema) Internal Medicine: Result - Labs CBC & Chem 7: 03/19/17 02:41 03/19/17 02:41 Labs: Short CBC 03/19/17 Range/Units 02:41 WBC 5.9 (4.3-11.1) K/mcL Hgb 10.7 L (12.9-16.9) g/dL Hct 31.5 L (37.5-50.1) % Plt Count 150 (140-400) K/mcL Neutrophils # 3.1 (1.6-8.9) K/mcL BMP 03/19/17 02:41 Sodium 137 Potassium 3.8 Chloride 102 Carbon Dioxide 28 BUN 14 Creatinine 1.38 H Glucose 136 H Calcium 8.7 Cardiac Enzymes 03/18/17 03/19/17 03/19/17 Range/Units 20:48 02:41 08:35 Troponin I 0.05 H* 0.05 H* 0.04 H* (0-0.03) ng/mL - ABG Interpretation ABG results: PT/INR, D-dimer PT 13.6 Seconds (9.4-12.1) H 03/19/17 02:41 - Impressions Impressions Pulmonary Perfusion Imaging 03/19/17 09:22 IMPRESSION: Low Probability for Pulmonary Embolus. D/ / Ubaldo Julien / Ubaldo Julien Interpreting Provider: Ubaldo Julien Echocardiogram 03/19/17 19:35 Impressions: Technically adequate exam. Atrial fibrillation. Normal LV chamber size, wall thickness and function. LVEF 65%. Mildly dilated left atrium. Trace mitral regurgitation. Mild tricuspid regurgitation. Left Ventricular Wall Motion: Rest Echo Findings All wall segments showed normal motion. Findings: Study Quality * Technically adequate exam. * ECG Findings * Atrial fibrillation. Left Ventricle * Normal LV chamber size, wall thickness and function. * normal. left ventricular diastolic dysfunction. * There is no LV thrombus. * Definity echo contrast was used. * LVEF 65%. Right Ventricle * Normal right ventricular structure and function. Left Atrium * Mildly dilated left atrium. Right Atrium * Normal right atrial size. Interatrial Septum * No evidence of PFO by color Doppler. Aortic Valve * Trileaflet aortic valve. * Trileaflet aortic valve with normal function. Mitral Valve * Normal mitral valve structure. * Trace mitral regurgitation. Tricuspid Valve * Normal tricuspid valve structure. * Mild tricuspid regurgitation. Pulmonic Valve * Pulmonic valve is not well visualized. Aorta * Normally sized aortic root. Pericardium * The pericardium appears normal. Consult Discharge Plan - Plan Referrals: Kayla Castellanos, DIAL BRUSHER [Primary Care Provider] -
[2017-03-20] MEDS: Lisinopril 20 MG TABLET PO SCH (08:32)
[2017-03-20] MEDS: Insulin LISPRO 300 UNITS/3 ML VIAL SQ SCH ×4 (08:32→23:02)
[2017-03-20] MEDS: Aspirin 81 MG TAB.CHEW PO SCH (08:32)
[2017-03-20] MEDS: Furosemide 40 MG/4 ML VIAL IVP SCH ×2 (08:32→16:50)
[2017-03-20] MEDS: Heparin 25,000 UNIT/500 ML D5W 25,000 UNIT/500 ML MLS IVC SCH ×2 (08:43→23:00)
[2017-03-20] MEDS ORDERED: Metoprolol XL (24 HR) Succ 25 MG TAB.ER.24H PO SCH (09:00)
[2017-03-20 09:01] LABS: BUN/Creatinine Ratio 13 (6-26); Blood Urea Nitrogen 18 mg/dL (8-26); Calcium 8.3 mg/dL (8.6-10.8); Carbon Dioxide 28 mEq/L (19-29); Chloride 100 mEq/L (98-109); Glucose 130 mg/dL (70-99); Osmolality,Calculated 288 (280-300); Potassium 3.6 mEq/L (3.5-4.5); Sodium 137 mEq/L (136-145); eGFR For African Americans > 60 (> 60); eGFR For Non-African Americans 52 (> 60)
[2017-03-20 09:23] LABS: Basophils % 0.5 %; Eosinophils # 0.5 K/mcL (0.0-0.6); Eosinophils % 8.8 %; Hematocrit 30.8 % (37.5-50.1); Hemoglobin 10.4 g/dL (12.9-16.9); Immature Granulocytes % 0.4 % (0-4); Lymphocytes # 1.8 K/mcL (0.6-4.6); Lymphocytes % 32.8 %; Mean Corpuscular HGB Conc 33.8 g/dL (31.6-35.5); Mean Corpuscular Hemoglobin 30.2 pg (28.0-33.3); Mean Corpuscular Volume 89.5 fL (83.0-100.0); Mean Platelet Volume 10.4 fL (9.4-12.4); Monocytes # 0.4 K/mcL (0.0-1.3); Neutrophils # 2.8 K/mcL (1.6-8.9); Platelet Count 123 K/mcL (140-400); Red Blood Count 3.44 M/mcL (4.19-5.50); Red Cell Distribution Width 13.2 % (11.5-14.5); Segmented Neutrophils % 50.5 %
[2017-03-20 09:40] LABS: Activated Partial Thrombo Time > 360.0 Seconds (26.0-36.0)
--- NOTE | 2017-03-20 10:54 | Electrocardiograph Report ---
[place] [address] Test Date: 2017-03-18 Pat Name: Rob Miller Department: 104 Room: BANNER0 Gender: M Line Installer: [facility] : 1940 Requested By: Zahra Cadena Order Number: [id number] Reading MD: Ankur Richards MD Measurements Intervals [place] Rate: 65 P: [place]: 0 QRS: -19 QRSD: 97 T: 84 QT: 366 QTc: 377 Interpretive Statements ATRIAL FIBRILLATION INCOMPLETE RIGHT BUNDLE BRANCH BLOC BASELINE ARTIFACT, REPEAT EKGK Electronically Signed On 03-20-2017 10:53:38 EST by Ankur Richards MD
--- NOTE | 2017-03-20 13:00 | Electrophysiology Consult Note ---
<Migdlaia Hallman - Last Filed: 03/20/17 13:01> Date of Encounter: 03/20/17 Time of Encounter: 10:00 Assessment and Plan (1) Atrial fibrillation Current Visit: Yes Status: Chronic Per cardiology: -Known atrial fibrillation, unknown chronicity. -Was on beta maddy in outpatient setting, now stopped. -HR controlled, average HR previous 12 hours noted to be 58. -Chads 2 vasc score 5 (age, HTN, CHF, DM). Currently on heparin drip. Had been on xarelto in outpatient setting. Patient stopped xarelto on his own accord due to seeing a negative commercial regarding medication. -Patient educated on increased risk of CVA/embolic event. Pateint states understanding and agreeable to restart terminal make up operator anticoagulation. Of note, prelimiary vascular report positive for DVT. -TTE with LVEF 65%, mildly dilated left atrium, trace TR, mild MR, all wall segments with normal motion. -Of note, pateint had 3.8 second pause nocturnal. Not diagnosed with sleep apnea. Overnight trending pulse ox ordered, not available for review at this time. -Denies dizziness or lightheadedness. Patient is sleeping during pauses. -Awaiting overnight pulse ox results. -Will discuss and review with Dr.John Whitfield for recommendations for atrial fibrillation with 3.8 second nocturnal pause. Qualifiers: Atrial fibrillation type: chronic Qualified Code(s): I48.2 - Chronic atrial fibrillation Discussion w patient/family: The assessment and plan as outlined above was discussed with the patient who expressed understanding and agreement. All questions were answered. Thank you for involving us in the care of your patient. Please call with any questions. Discussed and reviewed with Dr.John Whitfield. History of Present Illness Consult date: 03/20/17 Requesting physician: Luis Arora Consult reason: a.fib, pause on telemetry Chief complaint: increased peripheral edema History of present illness: Mr. Miller is a 77 year old male with a relevant past medical history of a.fib , HTN, DM. Electrophysiology has been asked to see and evaluate patient due to atrial fibrillation and significant pauses noted per telemetry. Patient denies palpitations or fluttering. Patient denies dizziness or lightheadedness. Patient denies history of sleep apnea, however is unsure if he has ever been testing. Past Med Surg Social Fam HX - Past Medical History Attestation: Yes The following information was validated with the patient. Source: patient, old records reviewed Medical history: atrial fibrillation, cardiomyopathy, CHF, coronary artery disease, diabetes, hyperlipidemia, hypertension, peripheral artery disease, venous stasis Psychiatric history: anxiety - Past Surgical History Surgical History: hip replacement - Social History Smoking Status: Former smoker Alcohol use: none Drug use: none - Family History Father Hx Family Cardiac Disorders: Yes Medications and Allergies Bumetanide [Bumex] 2 mg PO DAILY 04/29/15 [History] Metformin HCl [Fortamet] 1,000 mg PO BID 04/29/15 [History] Methadone 20 mg PO Q8HR 04/29/15 [History] OxyCODONE/APAP 10/325 [Percocet 10/325 MG] 1 tab PO Q8HR PRN 04/29/15 [History] Metoprolol XL (24 HR) Succ [Toprol Xl] 25 mg PO DAILY 04/30/15 [History] Potassium Chloride [Klor-Con 10] 10 meq PO DAILY 03/19/17 [History] Ramipril [Altace] 10 mg PO DAILY 03/19/17 [History] 3 Allergy/AdvReac Type Severity Reaction Status Date / Time No Known Allergies Allergy Verified 01/29/16 11:20 All Systems Review: A 10-system review of systems was performed and is negative for pertinent findings except as documented above in the HPI. - Cardiovascular Cardiovascular: as per HPI, leg edema Physical Examination Vital Signs, Last 4 Hours Temp Pulse Resp BP Pulse Ox 03/20/17 11:10 97.7 F 46 18 125/63 95 03/20/17 10:00 97 General: Conversant, No Apparent Distress HEENT: Atraumatic, Normocephaly, Mucus Membranes Moist Neck: No JVD, Normal carotid pulses Cardiac: Other (Irregularly irregular) Lungs: Normal Breath Sounds, No Wheeze, Rales, Rhonchi Neuro: Alert and responsive, No focal deficits noted Abdomen: Soft, Non-Tender Skin: No rashes noted on visualized skin Musculoskeletal: No Chest Wall Tenderness Extremities: No Clubbing, No Cyanosis, Normal Pulses, Other (Bilateral pedal edema noted. ) Results 03/20/17 08:29 03/20/17 08:29 Lab Results Impressions Echocardiogram 03/19/17 19:35 Impressions: Technically adequate exam. Atrial fibrillation. Normal LV chamber size, wall thickness and function. LVEF 65%. Mildly dilated left atrium. Trace mitral regurgitation. Mild tricuspid regurgitation. Left Ventricular Wall Motion: Rest Echo Findings All wall segments showed normal motion. Findings: Study Quality * Technically adequate exam. * ECG Findings * Atrial fibrillation. Left Ventricle * Normal LV chamber size, wall thickness and function. * normal. left ventricular diastolic dysfunction. * There is no LV thrombus. * Definity echo contrast was used. * LVEF 65%. Right Ventricle * Normal right ventricular structure and function. Left Atrium * Mildly dilated left atrium. Right Atrium * Normal right atrial size. Interatrial Septum * No evidence of PFO by color Doppler. Aortic Valve * Trileaflet aortic valve. * Trileaflet aortic valve with normal function. Mitral Valve * Normal mitral valve structure. * Trace mitral regurgitation. Tricuspid Valve * Normal tricuspid valve structure. * Mild tricuspid regurgitation. Pulmonic Valve * Pulmonic valve is not well visualized. Aorta * Normally sized aortic root. Pericardium * The pericardium appears normal. Active Medications Acetaminophen (Tylenol) 650 mg PO Q6HR PRN PRN Reason: Mild Pain (1-3) Stop: 09/17/17 19:34 Aspirin (Aspirin) 81 mg PO DAILY ANIBAL Stop: 09/18/17 09:01 Last Admin: 03/20/17 08:32 Dose: 81 mg Dextrose/Water (Dextrose 50% (Syg)) 25 ml IVP AD PRN PRN Reason: Hypoglycemia Stop: 09/17/17 19:41 Furosemide (Lasix) 40 mg IVP BIDDIURETIC ANIBAL Stop: 09/17/17 21:01 Last Admin: 03/20/17 08:32 Dose: 40 mg Glucagon (Glucagen) 1 mg IM ONCE PRN PRN Reason: Hypoglycemia Stop: 09/17/17 19:41 Glucose (Gluctose) 15 gm PO ONCE PRN PRN Reason: Hypoglycemia Stop: 09/17/17 19:41 Glucose (Gluctose) 30 gm PO ONCE PRN PRN Reason: Hypoglycemia Stop: 09/17/17 19:41 Heparin Sodium (Porcine) (Heparin) 8,700 unit 70 unit/kg (8700 unit) IVP Q6HR PRN PRN Reason: SEE COMMENTS Stop: 09/18/17 09:58 Last Admin: 03/20/17 01:06 Dose: 8,700 unit Heparin Sodium (Porcine) (Heparin) 4,300 unit 35 unit/kg (4300 unit) IVP Q6H PRN PRN Reason: SEE COMMENTS Stop: 09/18/17 09:58 Dextrose (Dextrose 5%) 1,000 mls @ 100 mls/hr IVC .Q10H PRN PRN Reason: HYPOGLYCEMIA Stop: 09/17/17 19:41 Vancomycin HCl 1,500 mg/ (Dextrose) 250 mls @ 166.67 mls/hr IVPB Q24H ANIBAL Stop: 09/18/17 18:01 Last Admin: 03/19/17 17:28 Dose: 166.67 mls/hr Heparin Sodium/Dextrose (Heparin 25,000 Unit/500 Ml D5w) 25,000 unit in 500 mls @ 34.72 mls/hr IVC .[id number] ANIBAL; 14 UNIT/KG/HR PRN Reason: Protocol Stop: 09/18/17 10:01 Last Admin: 03/20/17 08:43 Dose: 17.74 unit/kg/hr, 44 mls/hr Insulin Human Lispro (Humalog) 0 units SQ HS ANIBAL PRN Reason: Protocol Stop: 09/17/17 21:01 Last Admin: 03/19/17 21:12 Dose: Not Given Insulin Human Lispro (Humalog) 0 units SQ TIDAC ANIBAL PRN Reason: Protocol Stop: 09/18/17 07:31 Last Admin: 03/20/17 11:47 Dose: 6 units Lisinopril (Zestril) 40 mg PO DAILY [facility] Stop: 09/19/17 09:01 Last Admin: 03/20/17 08:32 Dose: 40 mg Morphine Sulfate (Morphine Sulfate) 2 mg IVP Q4HR PRN PRN Reason: Severe Pain (7-10) Stop: 09/17/17 19:34 Naloxone HCl (Narcan) 0.4 mg IVP Q2MIN PRN PRN Reason: Opioid Reversal Stop: 09/17/17 19:34 Ondansetron HCl (Zofran) 4 mg IVP Q8HR PRN PRN Reason: Nausea And Vomiting Stop: 09/17/17 19:34 Potassium Chloride (Potassium Chloride) 10 meq PO DAILY [facility] Stop: 09/19/17 09:01 Last Admin: 03/20/17 08:32 Dose: 10 meq Simvastatin (Zocor) 20 mg PO HS ANIBAL PRN Reason: Protocol Stop: 09/17/17 21:01 Last Admin: 03/19/17 21:10 Dose: 20 mg Laboratory Tests 03/19/17 03/20/17 03/20/17 08:35 08:29 08:29 Hgb 10.4 L Potassium 3.6 Creatinine 1.34 H TSH 1.941 - Imaging and Cardiology Chest Xray: report reviewed Echo: report reviewed - EKG Interpretation EKG results cardiology: personally reviewed (ECG with atrial fibrillation.), other (Telemetry reviewed with average HR previous 12 hours noted to be 58, atrial fibrillation. PVCs noted. Longest pause 3.8seconds, nocturnal.) Consult Discharge Plan - Plan Referrals: Kayla Castellanos, [employer] DEVELOPER [Primary Care Provider] - <Jigar Whitfield - Last Filed: 03/20/17 15:43> Date of Encounter: 03/20/17 - Attending Attestation I have personally performed a face to face evaluation on this patient. I have reviewed and agree with the care plan. History and Exam by me shows: Probable chronic AF. Nocturnal bradycardia noted. No symptoms noted. No further cardiac testing needed at this point. Assessment and Plan Discussion w patient/family: The assessment and plan as outlined above was discussed with the patient and/or family members who expressed understanding and agreement. All questions were answered. Thank you for involving us in the care of your patient. Please call with any questions. History of Present Illness History of present illness: Mr. Miller is a 77 year old male All Systems Review: A 10-system review of systems was performed and is negative for pertinent findings except as documented above in the HPI. Results 03/20/17 08:29 03/20/17 08:29 Lab Results 03/19/17 03/20/17 03/20/17 18:34 00:18 08:29 WBC Hgb Hct Plt Count APTT 31.2 32.8 > 360.0 H* D Sodium Potassium Chloride Carbon Dioxide BUN Creatinine Glucose Calcium 03/20/17 03/20/17 08:29 08:29 WBC 5.6 Hgb 10.4 L Hct 30.8 L Plt Count 123 L APTT Sodium 137 Potassium 3.6 Chloride 100 Carbon Dioxide 28 BUN 18 Creatinine 1.34 H Glucose 130 H Calcium 8.3 L
--- NOTE | 2017-03-20 16:40 | Podiatry Consult Note ---
Date of Encounter: 03/20/17 Time of Encounter: 12:00 Assessment and Plan (1) CHF (congestive heart failure) Current visit: Yes Status: Acute Qualifiers: Congestive heart failure type: unspecified congestive heart failure type Congestive heart failure chronicity: acute on chronic Qualified Code(s): I50.9 - Heart failure, unspecified (2) Cellulitis Current visit: Yes Status: Acute Assessment: Cellulitis of the left great toe secondary to traumatic wound. X Ray of the left foot performed on 03/18/17, no acute osseous abnormality of the left foot, osteopenia, diffuse soft tissue swelling. WBC: 5.6 Venous doppler of LLE: positive for DVT. Toe nails #1 through #5 bilaterally are thick, elongated and mycotic. Toe nail # 2 of the left foot is loose and connected by the cuticle. Plan: Currently receiving IV Vancomycin for cellulitis. Started on Heparin for DVT. Wound care to include cleansing wound of left great toe with mild soap and water pat dry, apply silvadene, with adaptic 4x4 dry sterile gauze and medipore tape BID. Toe nail #2 of the left foot removed with sterile pickup and scissors, no complications, keep toe covered with triple antibiotic ointment and bandaid. Will order post op shoe for left foot. Will continue to monitor patient closely. Qualifiers: Site of cellulitis: extremity Site of cellulitis of extremity: lower extremity Laterality: left Qualified Code(s): L03.116 - Cellulitis of left lower limb (3) Foot contusion Current visit: Yes Status: Acute Qualifiers: Encounter type: initial encounter Laterality: left Qualified Code(s): S90.32XA - Contusion of left foot, initial encounter (4) Peripheral edema Current visit: Yes Status: Acute (5) Diabetes Current visit: Yes Status: Chronic Qualifiers: Diabetes mellitus type: type 2 Diabetes mellitus complication status: with kidney complications Diabetes mellitus complication detail: with chronic kidney disease Diabetes mellitus fdc insulin use: without termite control technician use Chronic kidney disease stage: stage 3 (moderate) Qualified Code(s): E11.22 - Type 2 diabetes mellitus with diabetic chronic kidney disease; N18.3 - Chronic kidney disease, stage 3 (moderate); N18.3 - Chronic kidney disease, stage 3 (moderate) (6) Stasis dermatitis of both legs Current visit: Yes Status: Chronic Stasis dermatitis of BLE. Ruptured blister to the left anterior tibial region. Allevyn applied to ruptured blister. Continue to keep area clean and dry with Allevyn. (7) Onychomycosis Current visit: Yes Status: Acute Assessment: Toe nails #1 through #5 bilaterally are thick, elongated and mycotic. Plan: History of DM with neuropathy places patient in a high risk category for self care. Toe nail #2 of the left foot removed with sterile pickup and scissors, no complications, keep toe covered with triple antibiotic ointment and bandaid. Recommend patient follow up in Podiatry for diabetic foot care. History of Present Illness HPI: Mr. Miller is a 77 year old male admitted to [facility] on 03/18/17 for BLE swelling and sob. Patient had a medical history significant for atrial fibrillation, hypertension, diabetes, CHF, cardiomyopathy, hyperlipidemia, peripheral artery disease, venous stasis with chronic lower leg wounds and anxiety. Patient states eight months ago he scraped the top of his left great toe under his sofa. Patient states since then he has a wound to the left great toe. Patient states he has been managing the wound himself by applying hand saw straightener to the wound daily. Patient states he came to the ED due to left foot pain. Patient denies any fever, chills, n/v or cp. Patient states he lives at home with his and uses a walker. Patient had an Venous doppler on 03/19/17 of BLE, LLE positive for a DVT. Patient states he has never been seen by Podiatry, denies any surgery to his feet. Past Med Surg Social Fam HX - Past Medical History Medical history: atrial fibrillation, cardiomyopathy, CHF, coronary artery disease, diabetes, hyperlipidemia, hypertension, peripheral artery disease, venous stasis Psychiatric history: anxiety - Past Surgical History Surgical History: hip replacement - Social History Smoking Status: Former smoker Alcohol use: none Drug use: none - Family History Father Hx Family Cardiac Disorders: Yes Medications and Allergies Bumetanide [Bumex] 2 mg PO DAILY 04/29/15 [History] Metformin HCl [Fortamet] 1,000 mg PO BID 04/29/15 [History] Methadone 20 mg PO Q8HR 04/29/15 [History] OxyCODONE/APAP 10/325 [Percocet 10/325 MG] 1 tab PO Q8HR PRN 04/29/15 [History] Metoprolol XL (24 HR) Succ [Toprol Xl] 25 mg PO DAILY 04/30/15 [History] Potassium Chloride [Klor-Con 10] 10 meq PO DAILY 03/19/17 [History] Ramipril [Altace] 10 mg PO DAILY 03/19/17 [History] 3 Allergy/AdvReac Type Severity Reaction Status Date / Time No Known Allergies Allergy Verified 01/29/16 11:20 All Systems Reviewed: A 10-system review of systems was performed and is negative for pertinent findings except as documented above in the HPI. Physical Exam - Constitutional Vitals: Temp Pulse Resp BP Pulse Ox 97.7 F 52 16 129/69 97 03/20/17 16:00 03/20/17 16:00 03/20/17 16:00 03/20/17 16:00 03/20/17 16:00 Exam: General appearance: alert awake oriented X 3. Calm and pleasant, no acute distress.. Vascular: Pedal pulses +1/4 DP/PT , No evidence of cyanosis, pallor or rubor, Edema graded at 1+/4, Skin Temperature warm, capillary refill time is immediate to digits. Neurologic: Sensation decreased to both feet as evidenced by the SWMF 5.07 and tuning fork 128 CPS. Integument: Dark erythema to the anterior tibial region of BLE with cobblestone appearance, ruptured blister to the left anterior tibial region measuring 2 cm in length x 1 cm in width, base of wound is pink, no pus, no odor, no fluctuance. Superficial wound to the dorsal aspect of the left great toe proximal to the nail plate extending to the base of the proximal phalanx with periwound erythema. Wound measures 3.8 cm in length by 1.8 cm in width, base of wound with 50% granulation tissue and 50% dried scab. no pus, no odor, no fluctuance. Dermatologic: Toenails #1 through #5 bilaterally are thick, elongated, and mycotic. Toe nail #2 left foot is loose and connected by the cuticle. Results - Labs Result Diagrams: 03/20/17 08:29 03/20/17 08:29 Labs: Abnormal lab results RBC 3.44 M/mcL (4.19-5.50) L 03/20/17 08:29 Hgb 10.4 g/dL (12.9-16.9) L 03/20/17 08:29 Hct 30.8 % (37.5-50.1) L 03/20/17 08:29 Plt Count 123 K/mcL (140-400) L 03/20/17 08:29 PT 13.6 Seconds (9.4-12.1) H 03/19/17 02:41 APTT > 360.0 Seconds (26.0-36.0) H* D 03/20/17 08:29 Heparin Anti-Xa, Unfract 1.10 IU/mL (0.30-0.70) H* 03/20/17 08:29 Creatinine 1.34 mg/dL (0.72-1.25) H 03/20/17 08:29 Est GFR (Non-Af Amer) 52 (> 60) L 03/20/17 08:29 Glucose 130 mg/dL (70-99) H 03/20/17 08:29 POC Glucose 146 (58-89) H 03/19/17 15:57 Hemoglobin A1c 7.7 % (-5.6) H 03/19/17 02:41 Calcium 8.3 mg/dL (8.6-10.8) L 03/20/17 08:29 Alkaline Phosphatase 129 Units/L (38-126) H 03/18/17 17:42 Troponin I 0.04 ng/mL (0-0.03) H* 03/19/17 08:35 B-Natriuretic Peptide 278 pg/mL (0-100) H 03/18/17 17:42 Albumin 3.3 g/dL (3.5-5.0) L 03/18/17 17:42 Globulin 3.8 g/dL (2.4-3.5) H 03/18/17 17:42 Albumin/Globulin Ratio 0.9 (1.1-2.2) L 03/18/17 17:42 LDL Cholesterol, Calc 131 mg/dL (0-99) H 03/19/17 02:41 HDL Cholesterol 32 mg/dL (40-59) L 03/19/17 02:41 Cholesterol/HDL Ratio 5.6 (0-4.9) H 03/19/17 02:41 Urine Glucose (UA) 500 mg/dL (Normal) H 03/18/17 18:25 Ur Squamous Epith Cells Moderate per lpf (None-Few) H 03/18/17 18:25 H & H 03/20/17 Range/Units 08:29 Hgb 10.4 L (12.9-16.9) g/dL Hct 30.8 L (37.5-50.1) % All other labs normal. Consult Discharge Plan - Plan Referrals: Kayla Castellanos, [employer] OPERATOR [Primary Care Provider] -
[2017-03-20] MEDS: *HR* Methadone 10 MG TABLET PO SCH (16:49)
--- NOTE | 2017-03-20 18:16 | Internal Med Progress Note ---
Date of Encounter: 03/20/17 Time of Encounter: 11:00 - Assessment and plan (1) CHF (congestive heart failure) Current Visit: Yes Status: Acute Assessment and plan: -Patient with bilateral lower extremity edema and shortness of breath secondary to acute CHF. -Echocardiogram pending. -Continue IV diuresis. -Cardiology following and appreciate recommendations. Qualifiers: Congestive heart failure type: unspecified congestive heart failure type Congestive heart failure chronicity: acute on chronic Qualified Code(s): I50.9 - Heart failure, unspecified (2) Elevated troponin Current Visit: Yes Status: Acute Assessment and plan: -Now trending downward; suspect secondary to ischemia. -Echocardiogram pending and cardiology following. (3) Foot contusion Current Visit: Yes Status: Acute Assessment and plan: -Will continue vancomycin -Podiatry consulted and appreciate recommendations. Qualifiers: Encounter type: initial encounter Laterality: left Qualified Code(s): S90.32XA - Contusion of left foot, initial encounter (4) Atrial fibrillation Current Visit: Yes Status: Chronic Assessment and plan: -Controlled on beta maddy but patient discontinued oral anticoagulation medication without medical advice. -Patient currently on heparin drip due to DVT with suspected PE. Qualifiers: Atrial fibrillation type: chronic Qualified Code(s): I48.2 - Chronic atrial fibrillation (5) Hypertension Current Visit: Yes Status: Chronic Assessment and plan: -Controlled; continue home medications. Qualifiers: Hypertension type: essential hypertension Qualified Code(s): I10 - Essential (primary) hypertension (6) Diabetes Current Visit: Yes Status: Chronic Assessment and plan: -Controlled; sliding scale insulin Qualifiers: Diabetes mellitus type: type 2 Diabetes mellitus complication status: with kidney complications Diabetes mellitus complication detail: with chronic kidney disease Diabetes mellitus termite exterminator insulin use: without senior living use Chronic kidney disease stage: stage 3 (moderate) Qualified Code(s): E11.22 - Type 2 diabetes mellitus with diabetic chronic kidney disease; N18.3 - Chronic kidney disease, stage 3 (moderate); N18.3 - Chronic kidney disease, stage 3 (moderate) (7) Chronic kidney disease Current Visit: Yes Status: Chronic Assessment and plan: -Stable; continue to monitor. Qualifiers: Chronic kidney disease stage: stage 3 (moderate) Qualified Code(s): N18.3 - Chronic kidney disease, stage 3 (moderate) (8) DVT prophylaxis Current Visit: Yes Status: Acute Assessment and plan: -Heparin drip - Subjective Interval history: Patient with no issues or complaints this morning. - Constitutional Vitals: Temp Pulse Resp BP Pulse Ox 97.7 F 52 16 129/69 97 03/20/17 16:00 03/20/17 16:00 03/20/17 16:00 03/20/17 16:00 03/20/17 16:00 General appearance: Present: cooperative, A&O X 3, morbidly obese, pleasant, no acute distress, answers questions appropriately - Respiratory Respiratory exam: Present: CTAB. Absent: accessory muscle use, rales, rhonchi, wheezes - Cardiovascular Cardiovascular exam: Present: RRR, +S1, +S2. Absent: diastolic murmur, gallop, rubs, systolic murmur - Expanded Lower Extremities Exam Lower Leg exam: Present: swelling Internal Medicine: Result - Labs CBC & Chem 7: 03/20/17 08:29 03/20/17 08:29 Labs: Short CBC 03/20/17 Range/Units 08:29 WBC 5.6 (4.3-11.1) K/mcL Hgb 10.4 L (12.9-16.9) g/dL Hct 30.8 L (37.5-50.1) % Plt Count 123 L (140-400) K/mcL Neutrophils # 2.8 (1.6-8.9) K/mcL BMP 03/20/17 08:29 Sodium 137 Potassium 3.6 Chloride 100 Carbon Dioxide 28 BUN 18 Creatinine 1.34 H Glucose 130 H Calcium 8.3 L - ABG Interpretation ABG results: PT/INR, D-dimer PT 13.6 Seconds (9.4-12.1) H 03/19/17 02:41 Consult Discharge Plan - Plan Referrals: Kayla Castellanos, MACHINE OPERATOR CANE CUTTER [Primary Care Provider] -
[2017-03-20] MEDS: Vancomycin 1,500 MG in D5% in Water 250 ML IVPB SCH (18:48)
[2017-03-21] MEDS: *HR* Methadone 10 MG TABLET PO SCH ×4 (01:10→23:29)
[2017-03-21 01:40] LABS: Activated Partial Thrombo Time 140.8 Seconds (26.0-36.0)
[2017-03-21 01:41] LABS: Heparin anti-factor XA UFH 0.75 IU/mL (0.30-0.70)
[2017-03-21] MEDS ORDERED: Regadenoson 0.4 MG/5 ML SYRINGE IVP ONE ×2 (05:59→06:15)
--- NOTE | 2017-03-21 08:27 | Internal Med Progress Note ---
Date of Encounter: 03/21/17 Time of Encounter: 09:25 - Assessment and plan (1) CHF (congestive heart failure) Current Visit: Yes Status: Acute Assessment and plan: Normal ejection fraction per 2-D echo. Has diastolic dysfunction. On Lasix. Patient has had negative 6 and half liters fluid balance. Transition to oral diuretics from tomorrow. High-risk for complications due to use of intravenous heparin drip. Qualifiers: Congestive heart failure type: diastolic Congestive heart failure chronicity: acute on chronic Qualified Code(s): I50.33 - Acute on chronic diastolic (congestive) heart failure (2) Deep vein thrombosis (DVT) Current Visit: Yes Status: Acute Assessment and plan: Continue IV heparin. Plan is to transition patient to Xarelto. Qualifiers: DVT location: lower extremity Affected thrombotic vein of extremity: popliteal Chronicity: acute Laterality: left Qualified Code(s): I82.432 - Acute embolism and thrombosis of left popliteal vein (3) Elevated troponin Current Visit: Yes Status: Acute Assessment and plan: Stress test does not show any signs of ischemia. No further cardiac workup planned. (4) Foot contusion Current Visit: Yes Status: Acute Assessment and plan: Improving. Continue local wound care and IV vancomycin for superficial cellulitis. Postop shoe. Podiatry following. Qualifiers: Encounter type: initial encounter Laterality: left Qualified Code(s): S90.32XA - Contusion of left foot, initial encounter (5) Stasis dermatitis of both legs Current Visit: Yes Status: Chronic Assessment and plan: Chronic. Due to underlying chronic pedal edema/lymphedema. Supportive care. Follow-up outpatient with PCP and wound clinic. (6) DVT prophylaxis Current Visit: Yes Status: Acute Assessment and plan: On anticoagulation with IV heparin. Transition to Xarelto (7) Diabetes Current Visit: Yes Status: Chronic Assessment and plan: Improved control. Continue sliding scale insulin and diabetic diet. Qualifiers: Diabetes mellitus type: type 2 Diabetes mellitus complication status: with kidney complications Diabetes mellitus complication detail: with chronic kidney disease Diabetes mellitus intermediate frame tender insulin use: without residential use Chronic kidney disease stage: stage 3 (moderate) Qualified Code(s): E11.22 - Type 2 diabetes mellitus with diabetic chronic kidney disease; N18.3 - Chronic kidney disease, stage 3 (moderate); N18.3 - Chronic kidney disease, stage 3 (moderate) (8) Hypertension Current Visit: Yes Status: Chronic Assessment and plan: Well controlled at this time. Qualifiers: Hypertension type: essential hypertension Qualified Code(s): I10 - Essential (primary) hypertension (9) Chronic kidney disease Current Visit: Yes Status: Chronic Assessment and plan: Creatinine mauricio up to 1.74 today. We will change to it oral diuretics. Qualifiers: Chronic kidney disease stage: stage 3 (moderate) Qualified Code(s): N18.3 - Chronic kidney disease, stage 3 (moderate) - Subjective Interval history: Patient is lying in bed. Appears comfortable. Denies any new complaints at this time. No fever chills or night sweats. Continues to have bilateral pedal edema. Complains of pain in left lower extremity. - Constitutional Vitals: Temp Pulse Resp BP Pulse Ox 97.8 F 45 16 117/52 95 03/21/17 04:39 03/21/17 04:39 03/21/17 04:39 03/21/17 04:39 03/21/17 04:39 General appearance: Present: cooperative, A&O X 3, morbidly obese, pleasant, no acute distress, answers questions appropriately - Neck Neck exam general surgery: Present: supple, trachea midline. Absent: lymphadenopathy - Respiratory Respiratory exam: Present: CTAB. Absent: accessory muscle use, rales, rhonchi, wheezes - Cardiovascular Cardiovascular exam: Present: RRR, +S1, +S2. Absent: diastolic murmur, gallop, rubs, systolic murmur - Extremities Exam Extremities exam: Present: pedal edema (Bilateral lymphedema with stasis dermatitis), warm, radial pulses palpable and symmetrical. Absent: calf tenderness, cyanotic - Neurological Exam Neurological exam: Present: CN II-XII intact, oriented X3, no focal deficits. Absent: facial droop, speech deficit - Skin Skin exam: Present: dry, intact Internal Medicine: Result - Labs CBC & Chem 7: 03/20/17 08:29 03/21/17 10:49 Labs: Short CBC 03/20/17 Range/Units 08:29 WBC 5.6 (4.3-11.1) K/mcL Hgb 10.4 L (12.9-16.9) g/dL Hct 30.8 L (37.5-50.1) % Plt Count 123 L (140-400) K/mcL Neutrophils # 2.8 (1.6-8.9) K/mcL BMP 03/20/17 08:29 Sodium 137 Potassium 3.6 Chloride 100 Carbon Dioxide 28 BUN 18 Creatinine 1.34 H Glucose 130 H Calcium 8.3 L - ABG Interpretation ABG results: PT/INR, D-dimer PT 13.6 Seconds (9.4-12.1) H 03/19/17 02:41 Consult Discharge Plan - Plan Referrals: Kayla Castellanos, CLOUD SOLUTIONS ARCHITECT [Primary Care Provider] -
[2017-03-21] MEDS: Furosemide 40 MG/4 ML VIAL IVP SCH (09:50)
[2017-03-21] MEDS: Insulin LISPRO 300 UNITS/3 ML VIAL SQ SCH ×4 (09:50→23:30)
[2017-03-21] MEDS: Aspirin 81 MG TAB.CHEW PO SCH (09:50)
[2017-03-21] MEDS: Lisinopril 20 MG TABLET PO SCH (09:50)
[2017-03-21] MEDS: Silver Sulfadiazine 50 GM TUBE TP SCH ×2 (09:51→23:30)
[2017-03-21] MEDS: Neosporin OINT 15 GM TUBE TP SCH ×2 (09:51→23:30)
[2017-03-21 11:27] LABS: Calcium 8.6 mg/dL (8.6-10.8); Potassium 3.6 mEq/L (3.5-4.5)
--- NOTE | 2017-03-21 13:13 | Podiatry Progress Note ---
Date of Encounter: 03/21/17 Time of Encounter: 12:45 - Assessment and Plan (1) CHF (congestive heart failure) Current Visit: Yes Status: Acute Qualifiers: Congestive heart failure type: unspecified congestive heart failure type Congestive heart failure chronicity: acute on chronic Qualified Code(s): I50.9 - Heart failure, unspecified (2) Cellulitis Current Visit: Yes Status: Acute Assessment: Cellulitis of the left great toe secondary to traumatic wound. Decreased erythema noted today to left great toe. X Ray of the left foot performed on 03/18/17, no acute osseous abnormality of the left foot, osteopenia, diffuse soft tissue swelling. Venous doppler of LLE: positive for DVT. A febrile Plan: Currently receiving IV Vancomycin for cellulitis. Currently on Heparin drip for DVT. Continue Wound care as ordered with silvadene. Post op shoe ordered for left foot. Will continue to monitor patient closely. Heel protector boots ordered. Qualifiers: Site of cellulitis: extremity Site of cellulitis of extremity: lower extremity Laterality: left Qualified Code(s): L03.116 - Cellulitis of left lower limb (3) Foot contusion Current Visit: Yes Status: Acute Qualifiers: Encounter type: initial encounter Laterality: left Qualified Code(s): S90.32XA - Contusion of left foot, initial encounter (4) Peripheral edema Current Visit: Yes Status: Acute (5) Diabetes Current Visit: Yes Status: Chronic Qualifiers: Diabetes mellitus type: type 2 Diabetes mellitus complication status: with kidney complications Diabetes mellitus complication detail: with chronic kidney disease Diabetes mellitus blood bank supervisor insulin use: without blood bank supervisor use Chronic kidney disease stage: stage 3 (moderate) Qualified Code(s): E11.22 - Type 2 diabetes mellitus with diabetic chronic kidney disease; N18.3 - Chronic kidney disease, stage 3 (moderate); N18.3 - Chronic kidney disease, stage 3 (moderate) (6) Stasis dermatitis of both legs Current Visit: Yes Status: Chronic Stasis dermatitis of BLE. Ruptured blister to the left anterior tibial region. Allevyn applied to ruptured blister. Continue to keep area clean and dry with Allevyn. (7) Onychomycosis Current Visit: Yes Status: Acute Assessment: Toe nails #1 through #5 bilaterally are thick, elongated and mycotic. Plan: History of DM with neuropathy places patient in a high risk category for self care. Toe nail #2 of the left foot removed with sterile pickup and scissors, no complications, keep toe covered with triple antibiotic ointment and bandaid. Recommend patient follow up in Podiatry for diabetic foot care. Subjective Interval history: Patient is sitting up in bed with dressing dry and intact to left foot. Patient states he feels better today, no c/o pain to his feet. Toe nails #2 of the left foot was removed at the bedside yesterday. Wound care orders were written for the left great toe wound and toe #2 of the left foot. No c/o fever or chills overnight. Objective - Vital Signs Vital Signs: Vital Signs Temp Pulse Resp BP Pulse Ox 03/21/17 11:32 98.1 F 55 122/55 99 03/21/17 09:53 58 27 117/52 95 03/21/17 04:39 97.8 F 45 16 117/52 95 03/21/17 00:00 97.8 F 47 20 118/73 96 03/20/17 20:19 96 03/20/17 18:55 97.5 F L 64 15 133/56 94 03/20/17 16:00 97.7 F 52 16 129/69 97 Intake and Output 03/20/17 03/21/17 03/21/17 23:59 07:59 15:59 Intake Total 500 / 500 109 / 109 241 / 241 Output Total 0 / 0 1000 / 1000 Balance 500 / 500 -891 / -891 241 / 241 Intake: IV Fluids 500 / 500 109 / 109 241 / 241 Heparin 25,000 UNIT/500 ML D5W 500 / 500 109 / 109 241 / 241 25,000 unit In 500 ml @ 14 UNIT /KG/HR 34.72 mls/hr IVC . [id number] [facility] Rx#:[id number] Oral 0 / 0 Output: Catheter 0 / 0 1000 / 1000 Other: Weight 121.7 kg Blood Glucose* 180 181 Patient Weight 03/21/17 23:59 Weight 121.7 kg - Exam Exam: General appearance: alert awake oriented X 3. Calm and pleasant, no acute distress.. Vascular: Pedal pulses +1/4 DP/PT , No evidence of cyanosis, pallor or rubor, Edema graded at 1+/4, Skin Temperature warm, capillary refill time is immediate to digits. Integument: Dark erythema to the anterior tibial region of BLE with cobblestone appearance, hemosiderin staining, ruptured blister to the left anterior tibial region measuring 2 cm in length x 1 cm in width, base of wound is pink, no pus, no odor, no fluctuance. Superficial wound to the dorsal aspect of the left great toe proximal to the nail plate extending to the base of the proximal phalanx with light periwound erythema. Wound measures 3.8 cm in length by 1.8 cm in width, base of wound with 50% granulation tissue and 50% dried scab. no pus, no odor, no fluctuance. Dermatologic: Toenails #1 through #5 right and #1. #3 through #5 left are thick , elongated, and mycotic. - Lab Result Diagrams: 03/20/17 08:29 03/21/17 10:49 Labs: Abnormal lab results RBC 3.44 M/mcL (4.19-5.50) L 03/20/17 08:29 Hgb 10.4 g/dL (12.9-16.9) L 03/20/17 08:29 Hct 30.8 % (37.5-50.1) L 03/20/17 08:29 Plt Count 123 K/mcL (140-400) L 03/20/17 08:29 PT 13.6 Seconds (9.4-12.1) H 03/19/17 02:41 APTT 89.0 Seconds (26.0-36.0) H 03/21/17 09:33 Heparin Anti-Xa, Unfract 0.75 IU/mL (0.30-0.70) H 03/21/17 00:28 Chloride 97 mEq/L (98-109) L 03/21/17 10:49 Carbon Dioxide 32 mEq/L (19-29) H 03/21/17 10:49 Creatinine 1.74 mg/dL (0.72-1.25) H 03/21/17 10:49 Est GFR ( Amer) 46 (> 60) L 03/21/17 10:49 Est GFR (Non-Af Amer) 38 (> 60) L 03/21/17 10:49 Glucose 188 mg/dL (70-99) H 03/21/17 10:49 POC Glucose 181 (58-89) H 03/21/17 11:03 Hemoglobin A1c 7.7 % (-5.6) H 03/19/17 02:41 Alkaline Phosphatase 129 Units/L (38-126) H 03/18/17 17:42 Troponin I 0.04 ng/mL (0-0.03) H* 03/19/17 08:35 B-Natriuretic Peptide 278 pg/mL (0-100) H 03/18/17 17:42 Albumin 3.3 g/dL (3.5-5.0) L 03/18/17 17:42 Globulin 3.8 g/dL (2.4-3.5) H 03/18/17 17:42 Albumin/Globulin Ratio 0.9 (1.1-2.2) L 03/18/17 17:42 LDL Cholesterol, Calc 131 mg/dL (0-99) H 03/19/17 02:41 HDL Cholesterol 32 mg/dL (40-59) L 03/19/17 02:41 Cholesterol/HDL Ratio 5.6 (0-4.9) H 03/19/17 02:41 Urine Glucose (UA) 500 mg/dL (Normal) H 03/18/17 18:25 Ur Squamous Epith Cells Moderate per lpf (None-Few) H 03/18/17 18:25 Consult Discharge Plan - Plan Referrals: Kayla Castellanos, STRAP MACHINE OPERATOR [Primary Care Provider] -
--- NOTE | 2017-03-21 13:43 | Cardiology Progress Note ---
Date of Encounter: 03/21/17 Time of Encounter: 10:30 Assessment and Plan (1) CHF (congestive heart failure) Current Visit: Yes Status: Acute Per cardiology: -Had been bumex in outpateint setting, however patient stopped on his own accord. -TTE with LVEF 65%, no wall motion abnormalities noted. -BNP 278 on admission. -Edema imrpoved. -Weight today 121.7kg, weight PCP 09/2016 125kg. -On lasix 40mg IV BID inpateint. -Currently net negative 6411. -chest x-ray with no acute process. -Strict i/os, fluid restriction, daily weights. -Will switch diuretics back to home dose of bumex. -Patient educated on importance of medication compliance. Qualifiers: Congestive heart failure type: unspecified congestive heart failure type Congestive heart failure chronicity: acute on chronic Qualified Code(s): I50.9 - Heart failure, unspecified (2) Atrial fibrillation Current Visit: Yes Status: Chronic Per cardiology: -Known atrial fibrillation, unknown chronicity. -Was on beta maddy in outpatient setting, now stopped. -HR controlled, average HR previous 12 hours noted to be 55. -Chads 2 vasc score 5 (age, HTN, CHF, DM). Currently on heparin drip. Had been on xarelto in outpatient setting. Patient stopped xarelto on his own accord due to seeing a negative commercial regarding medication. -Patient educated on increased risk of CVA/embolic event. Pateint states understanding and agreeable to restart senior game developer anticoagulation. Of note, prelimiary vascular report positive for DVT. -TTE with LVEF 65%, mildly dilated left atrium, trace TR, mild MR, all wall segments with normal motion. -Of note, pateint had 3.5 second pause nocturnal. Not diagnosed with sleep apnea. Per EP no further inpatient recommendations for nocturnal pause. -Denies dizziness or lightheadedness. Patient is sleeping during pauses. -Recommend longterm anticoagulation. Patient has DVT, anticoagulation to be determined by primary service. Of note, patient is agreeable to resume xarelto. -Recommend outpatient sleep study. -Cardiology will sign off and will follow in outpatient setting. Follow up set. Qualifiers: Atrial fibrillation type: chronic Qualified Code(s): I48.2 - Chronic atrial fibrillation (3) Deep vein thrombosis (DVT) Current Visit: Yes Status: Acute Per cardiology: -DVT noted. -ON heparin drip. -Management per primary service. Qualifiers: DVT location: lower extremity Affected thrombotic vein of extremity: popliteal Chronicity: acute Laterality: left Qualified Code(s): I82.432 - Acute embolism and thrombosis of left popliteal vein (4) Elevated troponin Current Visit: Yes Status: Acute Per cardiology: -Troponins 0.04, 0.05, 0.05, 0.04 in the setting of DVT, CHF. -Denies chest pain. -ECG with no acute ischemic changes. -On heparin drip. -ON asa, statin. Beta maddy stopped for now due to significant pause. -TTE with LVEf 65%, no wall motion abnormalities noted. -Stress test negative for ischemia. -DO not suspect NSTEMI, suspect demand ischemia related to above. No cardiac rehab warranted. Discussion w patient/family: The assessment and plan as outlined above was discussed with the patient who expressed understanding and agreement. All questions were answered. Thank you for involving us in the care of your patient. Please call with any questions. Discussed and reviewed with . Subjective Principal diagnosis: CHF, DVT Interval history: Patient states he feels much better today. States edema and shortness of breath have improved. Objective Vital Signs, Last 4 Hours Temp Pulse Resp BP Pulse Ox 03/21/17 11:32 98.1 F 55 122/55 99 03/21/17 09:53 58 27 117/52 95 General: Conversant, No Apparent Distress HEENT: Atraumatic, Normocephaly, Mucus Membranes Moist Neck: No JVD, Normal carotid pulses Cardiac: Normal S1 and S2, No Murmur, Other (Irregulalry, irregular) Lungs: Normal Breath Sounds, No Wheeze, Rales, Rhonchi Neuro: Alert and responsive, No focal deficits noted Abdomen: Soft, Non-Tender Skin: No rashes noted on visualized skin Musculoskeletal: No Chest Wall Tenderness Extremities: No Clubbing, No Cyanosis, Normal Pulses, Other (Moderate pedal edema noted to bilateral lower extremities, non-pitting. ) Results 03/20/17 08:29 03/21/17 10:49 Lab Results Active Medications Acetaminophen (Tylenol) 650 mg PO Q6HR PRN PRN Reason: Mild Pain (1-3) Stop: 09/17/17 19:34 Aspirin (Aspirin) 81 mg PO DAILY [facility] Stop: 09/18/17 09:01 Last Admin: 03/21/17 09:50 Dose: 81 mg Bumetanide (Bumex) 2 mg PO DAILY [facility] Stop: 09/21/17 09:01 Dextrose/Water (Dextrose 50% (Syg)) 25 ml IVP AD PRN PRN Reason: Hypoglycemia Stop: 09/17/17 19:41 Glucagon (Glucagen) 1 mg IM ONCE PRN PRN Reason: Hypoglycemia Stop: 09/17/17 19:41 Glucose (Gluctose) 15 gm PO ONCE PRN PRN Reason: Hypoglycemia Stop: 09/17/17 19:41 Glucose (Gluctose) 30 gm PO ONCE PRN PRN Reason: Hypoglycemia Stop: 09/17/17 19:41 Heparin Sodium (Porcine) (Heparin) 8,700 unit 70 unit/kg (8700 unit) IVP Q6HR PRN PRN Reason: SEE COMMENTS Stop: 09/18/17 09:58 Last Admin: 03/20/17 01:06 Dose: 8,700 unit Heparin Sodium (Porcine) (Heparin) 4,300 unit 35 unit/kg (4300 unit) IVP Q6H PRN PRN Reason: SEE COMMENTS Stop: 09/18/17 09:58 Dextrose (Dextrose 5%) 1,000 mls @ 100 mls/hr IVC .Q10H PRN PRN Reason: HYPOGLYCEMIA Stop: 09/17/17 19:41 Vancomycin HCl 1,500 mg/ (Dextrose) 250 mls @ 166.67 mls/hr IVPB Q24H [facility] Stop: 09/18/17 18:01 Last Admin: 03/20/17 18:48 Dose: 166.67 mls/hr Heparin Sodium/Dextrose (Heparin 25,000 Unit/500 Ml D5w) 25,000 unit in 500 mls @ 34.72 mls/hr IVC .[id number] ANIBAL; 14 UNIT/KG/HR PRN Reason: Protocol Stop: 09/18/17 10:01 Last Titration: 03/21/17 11:20 Dose: 12.72 unit/kg/hr, 31.546 mls/hr Insulin Human Lispro (Humalog) 0 units SQ HS ANIBAL PRN Reason: Protocol Stop: 09/17/17 21:01 Last Admin: 03/20/17 23:02 Dose: Not Given Insulin Human Lispro (Humalog) 0 units SQ TIDAC ANIBAL PRN Reason: Protocol Stop: 09/18/17 07:31 Last Admin: 03/21/17 12:57 Dose: 6 units Lisinopril (Zestril) 40 mg PO DAILY [facility] Stop: 09/19/17 09:01 Last Admin: 03/21/17 09:50 Dose: 40 mg Methadone HCl (Methadone) 20 mg PO Q8HR [facility] Stop: 09/19/17 16:01 Last Admin: 03/21/17 09:50 Dose: 20 mg Naloxone HCl (Narcan) 0.4 mg IVP Q2MIN PRN PRN Reason: Opioid Reversal Stop: 09/17/17 19:34 Neomycin/Polymyxin/Bacitracin (Triple Antibiotic Ointment) 1 appl TP BID [facility] Stop: 09/20/17 09:01 Last Admin: 03/21/17 09:51 Dose: 1 appl Ondansetron HCl (Zofran) 4 mg IVP Q8HR PRN PRN Reason: Nausea And Vomiting Stop: 09/17/17 19:34 Last Admin: 03/20/17 20:14 Dose: 4 mg Oxycodone/Acetaminophen (Percocet 10/325) 1 each PO Q8HR PRN PRN Reason: Pain Stop: 09/19/17 14:08 Potassium Chloride (Potassium Chloride) 10 meq PO DAILY [facility] Stop: 09/19/17 09:01 Last Admin: 03/21/17 09:50 Dose: 10 meq Silver Sulfadiazine (Silvadene) 1 appl TP BID [facility] Stop: 09/20/17 09:01 Last Admin: 03/21/17 09:51 Dose: 1 appl Simvastatin (Zocor) 20 mg PO HS [facility] PRN Reason: Protocol Stop: 09/17/17 21:01 Last Admin: 03/20/17 20:13 Dose: 20 mg Laboratory Tests 03/21/17 10:49 Creatinine 1.74 H - Imaging and Cardiology Chest Xray: report reviewed Stress Test: report reviewed Echo: report reviewed - EKG Interpretation EKG results cardiology: other (Telemetry reviewed with average HR previous 12 hours noted to be 55, atrial fibrillation. Longest pause 3.5 seconds. PVCs noted.) Consult Discharge Plan - Plan Referrals: Kayla Castellanos, MACHINING MANAGER [Primary Care Provider] -
[2017-03-21] MEDS ORDERED: Aminoglycoside Consult 1 EACH MC ONE (13:54)
[2017-03-21] MEDS ORDERED: Miconazole 2% cream 118 GM TUBE TP SCH (14:00)
[2017-03-21] MEDS: *HR* OxyCODONE/APAP 10/325 TABLET PO PRN (14:40)
--- NOTE | 2017-03-21 15:18 | Internal Med Progress Note ---
Date of Encounter: 03/21/17 - Assessment and plan (1) Deep vein thrombosis (DVT) Current Visit: Yes Status: Acute Qualifiers: DVT location: lower extremity Affected thrombotic vein of extremity: popliteal Chronicity: acute Laterality: left Qualified Code(s): I82.432 - Acute embolism and thrombosis of left popliteal vein - Constitutional Vitals: Temp Pulse Resp BP Pulse Ox 98.1 F 55 27 122/55 99 03/21/17 11:32 03/21/17 11:32 03/21/17 09:53 03/21/17 11:32 03/21/17 11:32 General appearance: Present: cooperative, A&O X 3, morbidly obese, pleasant, no acute distress, answers questions appropriately Internal Medicine: Result - Labs CBC & Chem 7: 03/20/17 08:29 03/21/17 10:49 Labs: BMP 03/21/17 10:49 Sodium 138 Potassium 3.6 Chloride 97 L Carbon Dioxide 32 H BUN 22 Creatinine 1.74 H Glucose 188 H Calcium 8.6 - ABG Interpretation ABG results: PT/INR, D-dimer PT 13.6 Seconds (9.4-12.1) H 03/19/17 02:41 Consult Discharge Plan - Plan Referrals: Kayla Castellanos, PARAPROFESSIONAL EDUCATION ASSISTANT [Primary Care Provider] -
[2017-03-21] MEDS: Vancomycin 1,500 MG in D5% in Water 250 ML IVPB SCH (17:20)
[2017-03-21] MEDS: Miconazole 2% ointment 114 GM TUBE TP SCH ×2 (18:22→23:31)
[2017-03-21] MEDS ORDERED: Nicotine 21 MG PATCH.TD24 TD ONE (22:11)
[2017-03-21] MEDS: *HR* Rivaroxaban 15 MG TABLET PO SCH (22:39)
[2017-03-22] MEDS: Heparin 25,000 UNIT/500 ML D5W 25,000 UNIT/500 ML MLS IVC SCH ×2 (08:40→08:41)
[2017-03-22] MEDS ORDERED: Bumetanide 1 MG TABLET PO SCH (09:00)
[2017-03-22] MEDS: Insulin LISPRO 300 UNITS/3 ML VIAL SQ SCH ×2 (09:31→12:31)
[2017-03-22] MEDS: Lisinopril 20 MG TABLET PO SCH (09:41)
[2017-03-22] MEDS: *HR* Rivaroxaban 15 MG TABLET PO SCH (09:41)
[2017-03-22] MEDS: Aspirin 81 MG TAB.CHEW PO SCH (09:41)
[2017-03-22] MEDS: *HR* Methadone 10 MG TABLET PO SCH (09:42)
[2017-03-22 11:45] VITALS: BP 165/67
--- NOTE | 2017-03-22 11:49 | Discharge Summary ---
Date of Encounter: 03/22/17 Time of Encounter: 09:45 - Discharge Diagnosis (1) CHF (congestive heart failure) Priority: Primary Status: Acute Qualifiers: Congestive heart failure type: diastolic Congestive heart failure chronicity: acute on chronic Qualified Code(s): I50.33 - Acute on chronic diastolic (congestive) heart failure (2) Deep vein thrombosis (DVT) Priority: Secondary Status: Acute Qualifiers: DVT location: lower extremity Affected thrombotic vein of extremity: popliteal Chronicity: acute Laterality: left Qualified Code(s): I82.432 - Acute embolism and thrombosis of left popliteal vein (3) Elevated troponin Priority: Secondary Status: Acute (4) Foot contusion Priority: Secondary Status: Acute Comments: with superficial cellulitis Qualifiers: Encounter type: initial encounter Laterality: left Qualified Code(s): S90.32XA - Contusion of left foot, initial encounter (5) Stasis dermatitis of both legs Priority: Secondary Status: Chronic (6) DVT prophylaxis Priority: Secondary Status: Acute (7) Diabetes Priority: Secondary Status: Chronic Qualifiers: Diabetes mellitus type: type 2 Diabetes mellitus complication status: with kidney complications Diabetes mellitus complication detail: with chronic kidney disease Diabetes mellitus senior living insulin use: without senior living use Chronic kidney disease stage: stage 3 (moderate) Qualified Code(s): E11.22 - Type 2 diabetes mellitus with diabetic chronic kidney disease; N18.3 - Chronic kidney disease, stage 3 (moderate); N18.3 - Chronic kidney disease, stage 3 (moderate) (8) Hypertension Priority: Secondary Status: Chronic Qualifiers: Hypertension type: essential hypertension Qualified Code(s): I10 - Essential (primary) hypertension (9) Chronic kidney disease Priority: Secondary Status: Chronic Qualifiers: Chronic kidney disease stage: stage 3 (moderate) Qualified Code(s): N18.3 - Chronic kidney disease, stage 3 (moderate) - Discharge Medications Prescriptions: Methadone 20 mg PO Q8HR #30 tablet OxyCODONE/APAP 10/325 [Percocet 10/325 MG] 1 tab PO Q8HR PRN #14 tablet PRN Reason: Pain Insulin Glargine [Lantus] 5 unit SQ DAILY #5 mls Rivaroxaban [Xarelto] 15 mg PO BID 20 Days tablet Rivaroxaban [Xarelto] 20 mg PO 1700 #30 tablet Home Medications: Bumetanide [Bumex] 2 mg PO DAILY 04/29/15 [History] Metoprolol XL (24 HR) Succ [Toprol Xl] 25 mg PO DAILY 04/30/15 [History] Potassium Chloride [Klor-Con 10] 10 meq PO DAILY 03/19/17 [History] Acetaminophen [Tylenol] 650 mg PO Q6HR PRN tablet 03/22/17 [Rx] Amoxicillin/Clavulanate [Augmentin] 875 mg PO BIDWM 7 Days tablet 03/22/17 [Rx] Aspirin 81 mg PO DAILY tab.chew 03/22/17 [Rx] Doxycycline 100 mg PO BID 7 Days capsule 03/22/17 [Rx] Insulin Glargine [Lantus] 5 unit SQ DAILY #5 mls 03/22/17 [Rx] Lactobacillus [Culturelle] 1 each PO BID cap.sprink 03/22/17 [Rx] Lisinopril [Zestril] 40 mg PO DAILY tablet 03/22/17 [Rx] Metformin HCl [Fortamet] 500 mg PO BID #0 03/22/17 [Rx] Methadone 20 mg PO Q8HR #30 tablet 03/22/17 [Rx] Miconazole 2% ointment [Aloe [place] Antifungal Ointment] 1 appl TP BID tube [Rx] Orlin/Poly/Carter OINT [Triple Antibiotic Ointment] 1 appl TP BID tube 03/22/17 [Rx] OxyCODONE/APAP 10/325 [Percocet 10/325 MG] 1 tab PO Q8HR PRN #14 tablet [Rx] Rivaroxaban [Xarelto] 15 mg PO BID 20 Days tablet 03/22/17 [Rx] Rivaroxaban [Xarelto] 20 mg PO 1700 #30 tablet 03/22/17 [Rx] Silver Sulfadiazine [Silvadene] 1 appl TP BID tube 03/22/17 [Rx] Simvastatin [Zocor] 20 mg PO HS tablet 03/22/17 [Rx] Allergies/Adverse Reactions: 3 Allergy/AdvReac Type Severity Reaction Status Date / Time No Known Allergies Allergy Verified 01/29/16 11:20 Procedures/tests Complete & Pending: Procedures Performed prior 72 hours Category Date Time Status NM jurgen perf SPECT multi [NM] Routine Exams 03/19/17 15:11 Taken EV echocardiogram w enhance Routine Y 03/19/17 19:35 Completed EV venous imaging LE BI Stat Y 03/19/17 20:53 Completed SP pharm nuclear stress Routine Y 03/21/17 07:15 Completed Date of admission: 03/18/17 19:33 Primary care physician: Kayla Castellanos CNP Consults: 03/18/17 19:38 Consult to Wound Care [CONS] Routine Reason for Consult: wounds over lower extremities Call Completed: No 03/18/17 20:50 Consult to Podiatry [CONS] Routine Consulting Provider: [facility] Reason for Consult: lower extremity wound Call Completed: No 03/19/17 09:12 Consult to Cardiology [CONS] Routine Comment: Consulting Provider: Cardiology Jacinta Reason for Consult: chf and elevated troponins Call Completed: No 03/20/17 11:25 Consult to Electrophysiology (EP) [CONS] Routine Consulting Provider: Electrophysiology Jacinta Reason for Consult: A-Fib Call Completed: Yes 03/20/17 13:11 Consult to Physical Therapy [CONS] Routine Comment: Evaluate, develop and implement POC Reason for Consult: Possible rehab 03/20/17 13:14 Consult to Occupational Therapy [CONS] Routine Comment: Evaluate, develop and implement POC Reason for Consult: Possible rehab placement 03/20/17 13:20 Consult to Circular Saw Operator [CONS] Routine Reason for SW Consult: Patient and son are requesting rehab at discharge. Patient has MCR A&B Discharging clinician: Stephanie Allred Anticipated date of discharge: 03/22/17 - Patient Status Disposition: Transfer SNF Condition: Good Functional capacity at discharge: wheelchair bound Overall status at discharge: patient is progressing back to baseline - Discharge Instructions Follow Up With: Kayla Castellanos CNP [Primary Care Provider] - (in 1-2 weeks) Jigar Sky DPM [Partnered Physician] - (Follow-up as outpatient for onychomycosis) Fish Cano DO [Partnered Physician] - (in 1-2 weeks) Additional Instructions: Follow up with wound care for further management of lower extremity lymphedema and stasis dermatitis in 1-2 weeks - Diet and Activity Activity: as per physical therapy Diet: advance to your usual diet, diabetic diet, low fat, low cholesterol, low salt diet, other (Fluid restriction to 1.5 L per 24 hours) Hospital course: Mr. Miller is a 77 year old male patient with a history of essential hypertension, diabetes mellitus, atrial fibrillation and chronic bilateral pedal edema with venous stasis ulcers presented to the ER with complaints of shortness of breath and worsening bilateral lower extremity swelling. He was diagnosed with acute heart failure and was started on treatment with intravenous Lasix. Patient had been on Bumex but he had stopped taking the medication a few days prior to presentation. Patient also had a contusion injury in his left great and second toenail with superficial cellulitis. He was started on treatment for that with local wound care and vancomycin. Foot x- ray did not show any features of osteomyelitis. Podiatry was consulted to help manage the patient's wounds. Cardiology was consulted to help manage patient's congestive heart failure. Patient has good response to intravenous diuresis. He did have a 3.6 second pause on his telemetry but the patient was asymptomatic. Cardiology recommended stopping his beta maddy. Venous Doppler of the lower extremities was positive for DVT in the left popliteal vein. Patient was started on anticoagulation for this. He had previously been on Xarelto but he had stopped taking it. Patient underwent cardiac stress test per cardiology recommendations. Perfusion imaging was negative for any ischemia. Patient did have a small sized mild intensity fixed basal inferior perfusion defect suggestive of artifact. Presently, patient is doing much better. He has had -8 L fluid balance. He is now stopped clinically stable for discharge home. His cellulitis has mostly resolved. He will finish antibiotic course with doxycycline and Augmentin. He was evaluated by physical therapy and recommended placement to skilled rehabilitation. He will be discharged today to skilled rehabilitation. Follow- up with his PCP, cardiology and podiatry as outpatient for further management of his chronic medical conditions. - Time Spent with Patient Total time spent providing and/or coordinating discharge services: Greater than 30 minutes (45 min) - Constitutional Vitals: Temp Pulse Resp BP Pulse Ox 97.6 F 48 14 152/77 95 03/22/17 07:02 03/22/17 07:02 03/22/17 07:02 03/22/17 07:02 03/22/17 07:02 General appearance: Present: cooperative, A&O X 3, morbidly obese, pleasant, no acute distress, answers questions appropriately - Cardiovascular Cardiovascular exam: Present: RRR, +S1, +S2. Absent: diastolic murmur, gallop, rubs, systolic murmur - GI/Abdominal GI/Abdominal exam: Present: normal bowel sounds, soft, no peritoneal signs. Absent: distended, tenderness - Extremities Exam Extremities exam: Present: pedal edema (stasis dermatitis with superimposed fungal dermatitis; onychomycosis in toe nails bilaterally), warm, radial pulses palpable and symmetrical. Absent: calf tenderness, cyanotic Additional comments: left foot great toe and 2nd toe wounds bandaged - Neurological Exam Neurological exam: Present: alert, oriented X3, no focal deficits. Absent: facial droop, speech deficit
--- NOTE | 2017-03-22 11:55 | Physician Discharge Referral ---
ExtendedCare Referral Info Provider in Charge after Transfer: PCP Institutional Level of Care: Skilled - Diagnosis (1) CHF (congestive heart failure) Priority: Primary Status: Acute (2) Deep vein thrombosis (DVT) Priority: Secondary Status: Acute (3) Elevated troponin Priority: Secondary Status: Acute (4) Foot contusion Priority: Secondary Status: Acute (5) Stasis dermatitis of both legs Priority: Secondary Status: Chronic (6) DVT prophylaxis Priority: Secondary Status: Acute (7) Diabetes Priority: Secondary Status: Chronic (8) Hypertension Priority: Secondary Status: Chronic (9) Chronic kidney disease Priority: Secondary Status: Chronic Prognosis: Fair Aware of Diagnosis: Patient Aware of Prognosis: Patient - Transfer Medications Prescriptions: Methadone 20 mg PO Q8HR #30 tablet OxyCODONE/APAP 10/325 [Percocet 10/325 MG] 1 tab PO Q8HR PRN #14 tablet PRN Reason: Pain Rivaroxaban [Xarelto] 15 mg PO BID 20 Days tablet Rivaroxaban [Xarelto] 20 mg PO 1700 #30 tablet Home Medications: Bumetanide [Bumex] 2 mg PO DAILY 04/29/15 [History] Metoprolol XL (24 HR) Succ [Toprol Xl] 25 mg PO DAILY 04/30/15 [History] Potassium Chloride [Klor-Con 10] 10 meq PO DAILY 03/19/17 [History] Acetaminophen [Tylenol] 650 mg PO Q6HR PRN tablet 03/22/17 [Rx] Amoxicillin/Clavulanate [Augmentin] 875 mg PO BIDWM 7 Days tablet 03/22/17 [Rx] Aspirin 81 mg PO DAILY tab.chew 03/22/17 [Rx] Doxycycline 100 mg PO BID 7 Days capsule 03/22/17 [Rx] Lactobacillus [Culturelle] 1 each PO BID cap.sprink 03/22/17 [Rx] Lisinopril [Zestril] 40 mg PO DAILY tablet 03/22/17 [Rx] Metformin HCl [Fortamet] 500 mg PO BID #0 03/22/17 [Rx] Methadone 20 mg PO Q8HR #30 tablet 03/22/17 [Rx] Miconazole 2% ointment [Aloe [place] Antifungal Ointment] 1 appl TP BID tube [Rx] Orlin/Poly/Carter OINT [Triple Antibiotic Ointment] 1 appl TP BID tube 03/22/17 [Rx] OxyCODONE/APAP 10/325 [Percocet 10/325 MG] 1 tab PO Q8HR PRN #14 tablet [Rx] Rivaroxaban [Xarelto] 15 mg PO BID 20 Days tablet 03/22/17 [Rx] Rivaroxaban [Xarelto] 20 mg PO 1700 #30 tablet 03/22/17 [Rx] Silver Sulfadiazine [Silvadene] 1 appl TP BID tube 03/22/17 [Rx] Simvastatin [Zocor] 20 mg PO HS tablet 03/22/17 [Rx] Allergies/Adverse Reactions: 3 Allergy/AdvReac Type Severity Reaction Status Date / Time No Known Allergies Allergy Verified 01/29/16 11:20 - Respiratory Orders Smoking Cessation: Smoking cessation has been advised. For more information, call the [employer] Tobacco Quit Line at 2-816-NTDJ-NOW. - Lab Orders Lab Orders: Other (include drug levels w/frequency) (CBC , BMP on 03/24/17 and .) - Ancillary Orders May consult with Dentist, Knot Bumper, Printing Press Machinist PRN - Advance Directives Code Status: Full Code - Mobility Orders Other (per PT eval) - Rehabiliation Orders Rehab Potential: Fair Rehab Orders: Evaluation for Physical Therapy, Evaluation for Occupational Therapy - Treatments List/Other: Cleanse left foot twice daily with mild soap and water, pat dry, apply nickel thickn amount of silvadene to the left great toe with 4x4 dry sterile gauze and medipore tape. Apply triple antibiotic ointment to toe #2 of the left foot with bandaid. LEFT GREAT TOE: clean left great toe with mild soap and water, pat dry appy silvadene, with adaptic 4X4 dry sterile gauze and medipore tapechange BID LEFT SECOND TOENAIL: keep toe covered with triple antibotic ointment and bandaid BLE stasis dermatitis/fungal irritation - cleanse legs with HCG soap and water (try to remove as much flaky skin as possible) - rinse well with water and pat dry - apply Aloe [place] AF with 2% Miconazole liberally - leave open to air - repeat procedure twice daily (may apply a dressing over any weeping areas) - Diet Orders No Added Salt (SAM), Cardiac (Fluid restriction to 1.5 L per 24 hours) CERTIFICATION: I certify that the transfer of the above named patient to an Extended Care Facility is necessary for the continuing treatment of the diagnosis listed. The above information is true and accurate reflection of patient's current condition. Confidential - Redisclosure prohibited without a patient's written consent.
[2017-03-22] MEDS: Miconazole 2% ointment 114 GM TUBE TP SCH (12:31)
[2017-03-22] MEDS: Silver Sulfadiazine 50 GM TUBE TP SCH (12:31)
[2017-03-22] MEDS: Neosporin OINT 15 GM TUBE TP SCH (12:32)
[2017-03-22] MEDS: *HR* OxyCODONE/APAP 10/325 TABLET PO PRN (12:43)
--- NOTE | 2017-03-22 13:10 | Podiatry Progress Note ---
Date of Encounter: 03/22/17 Time of Encounter: 12:15 - Assessment and Plan (1) CHF (congestive heart failure) Current Visit: Yes Status: Acute Qualifiers: Congestive heart failure type: diastolic Congestive heart failure chronicity: acute on chronic Qualified Code(s): I50.33 - Acute on chronic diastolic (congestive) heart failure (2) Cellulitis Current Visit: Yes Status: Acute Assessment: Cellulitis of the left great toe secondary to traumatic wound. Decreased erythema noted today to left great toe. Overall significant improvement to ulcer of left great toe. X Ray of the left foot performed on 03/18/17, no acute osseous abnormality of the left foot, osteopenia, diffuse soft tissue swelling. Venous doppler of LLE: positive for DVT. A febrile Plan: Continue Wound care as ordered with silvadene to the left great toe. Post op shoe ordered for left foot. Recommend patient f/u in Podiatry clinic with Jackson Ellis CNP one to two weeks after discharge from the hospital. Qualifiers: Site of cellulitis: extremity Site of cellulitis of extremity: lower extremity Laterality: left Qualified Code(s): L03.116 - Cellulitis of left lower limb (3) Foot contusion Current Visit: Yes Status: Acute Qualifiers: Encounter type: initial encounter Laterality: left Qualified Code(s): S90.32XA - Contusion of left foot, initial encounter (4) Peripheral edema Current Visit: Yes Status: Acute (5) Diabetes Current Visit: Yes Status: Chronic Qualifiers: Diabetes mellitus type: type 2 Diabetes mellitus complication status: with kidney complications Diabetes mellitus complication detail: with chronic kidney disease 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 Ruptured blister to the left anterior tibial region. Allevyn applied to ruptured blister. Continue to keep area clean and dry with Allevyn. (7) Onychomycosis Current Visit: Yes Status: Acute Assessment: Toe nails #1 through #5 bilaterally are thick, elongated and mycotic. Plan: History of DM with neuropathy places patient in a high risk category for self care. Toe nail #2 of the left foot removed with sterile pickup and scissors, no complications, keep toe covered with triple antibiotic ointment and bandaid. Recommend patient follow up in Podiatry for diabetic foot care. Subjective Principal diagnosis: CHF, DVT Interval history: Patient is sitting up in bed with dressing dry and intact to left foot. Patient states he feels better today, no c/o pain to his feet. Toe nails #2 of the left foot was removed at the bedside two days ago. Wound care orders were written for the left great toe wound and toe #2 of the left foot. No c/o fever or chills overnight. Objective - Vital Signs Vital Signs: Vital Signs Temp Pulse Resp BP Pulse Ox 03/22/17 11:42 98.3 F 54 14 165/67 96 03/22/17 07:02 97.6 F 48 14 152/77 95 03/22/17 05:00 97.8 F 50 10 179/79 93 03/21/17 23:30 96 03/21/17 19:00 97.9 F 51 16 126/82 95 03/21/17 16:57 98.3 F 50 16 96 Intake and Output 03/21/17 03/22/17 03/22/17 23:59 07:59 15:59 Intake Total 200 / 200 120 / 120 480 / 480 Output Total 1500 / 1500 1300 / 1300 450 / 450 Balance -1300 / -1300 -1180 / -1180 30 / 30 Intake: IV Fluids 0 / 0 Heparin 25,000 UNIT/500 ML D5W 0 / 0 25,000 unit In 500 ml @ 14 UNIT /KG/HR 34.72 mls/hr IVC . [id number] [facility] Rx#:[id number] Oral 200 / 200 120 / 120 480 / 480 Output: Urine 1500 / 1500 200 / 200 Catheter 1300 / 1300 250 / 250 Other: Meal Breakfast Percent of Meal Consumed 100% Weight 122.1 kg Blood Glucose* 175 108 242 Patient Weight 03/22/17 23:59 Weight 122.1 kg - Exam Exam: General appearance: alert awake oriented X 3. Calm and pleasant, no acute distress.. Vascular: Pedal pulses +1/4 DP/PT , No evidence of cyanosis, pallor or rubor, Edema graded at 1+/4, Skin Temperature warm, capillary refill time is immediate to digits. Integument: Hemosiderin staining to the anterior tibial region of BLE with cobblestone appearance, ruptured blister to the left anterior tibial region measuring 0.5 cm in length x 0.5 cm in width, base of wound is pink, no pus, no odor, no fluctuance. Superficial wound to the dorsal aspect of the left great toe proximal to the nail plate extending to the base of the proximal phalanx with light periwound erythema. Wound measures 3.8 cm in length by 1.8 cm in width, base of wound with 100% granulation tissue, no pus, no odor, no fluctuance. Dermatologic: Toenails #1 through #5 right and #1. #3 through #5 left are thick , elongated, and mycotic. - Lab Result Diagrams: 03/20/17 08:29 03/21/17 10:49 Labs: Abnormal lab results RBC 3.44 M/mcL (4.19-5.50) L 03/20/17 08:29 Hgb 10.4 g/dL (12.9-16.9) L 03/20/17 08:29 Hct 30.8 % (37.5-50.1) L 03/20/17 08:29 Plt Count 123 K/mcL (140-400) L 03/20/17 08:29 PT 13.6 Seconds (9.4-12.1) H 03/19/17 02:41 APTT 56.2 Seconds (26.0-36.0) H 03/21/17 17:19 Heparin Anti-Xa, Unfract 0.75 IU/mL (0.30-0.70) H 03/21/17 00:28 Chloride 97 mEq/L (98-109) L 03/21/17 10:49 Carbon Dioxide 32 mEq/L (19-29) H 03/21/17 10:49 Creatinine 1.74 mg/dL (0.72-1.25) H 03/21/17 10:49 Est GFR ( Amer) 46 (> 60) L 03/21/17 10:49 Est GFR (Non-Af Amer) 38 (> 60) L 03/21/17 10:49 Glucose 188 mg/dL (70-99) H 03/21/17 10:49 POC Glucose 162 (58-89) H 03/21/17 17:03 Hemoglobin A1c 7.7 % (-5.6) H 03/19/17 02:41 Alkaline Phosphatase 129 Units/L (38-126) H 03/18/17 17:42 Troponin I 0.04 ng/mL (0-0.03) H* 03/19/17 08:35 B-Natriuretic Peptide 278 pg/mL (0-100) H 03/18/17 17:42 Albumin 3.3 g/dL (3.5-5.0) L 03/18/17 17:42 Globulin 3.8 g/dL (2.4-3.5) H 03/18/17 17:42 Albumin/Globulin Ratio 0.9 (1.1-2.2) L 03/18/17 17:42 LDL Cholesterol, Calc 131 mg/dL (0-99) H 03/19/17 02:41 HDL Cholesterol 32 mg/dL (40-59) L 03/19/17 02:41 Cholesterol/HDL Ratio 5.6 (0-4.9) H 03/19/17 02:41 Urine Glucose (UA) 500 mg/dL (Normal) H 03/18/17 18:25 Ur Squamous Epith Cells Moderate per lpf (None-Few) H 03/18/17 18:25 Consult Discharge Plan - Plan Additional Instructions: Follow up with wound care for further management of lower extremity lymphedema and stasis dermatitis in 1-2 weeks Referrals: Fish Cano DO [Partnered Physician] - (in 1-2 weeks) Kayla Castellanos, KRISTIN [Primary Care Provider] - (in 1-2 weeks) Jigar Sky DPM [Partnered Physician] - (Follow-up as outpatient for onychomycosis) Prescriptions: Methadone 20 mg PO Q8HR #30 tablet OxyCODONE/APAP 10/325 [Percocet 10/325 MG] 1 tab PO Q8HR PRN #14 tablet PRN Reason: Pain Insulin Glargine [Lantus] 5 unit SQ DAILY #5 mls Rivaroxaban [Xarelto] 15 mg PO BID 20 Days tablet Rivaroxaban [Xarelto] 20 mg PO 1700 #30 tablet
[2017-03-22] MEDS ORDERED: Doxycycline 100 MG CAPSULE PO SCH (21:00)
[2017-03-22] MEDS ORDERED: Lactobacillus 1 EACH CAP.SPRINK PO SCH (21:00)
== END 2017-03-22 13:55 | DRG 291 ==
LOC: EMEROO 16:39 → 2NENU 16:39 → SUATTDRO 19:33 → 2NENU 19:54
PROVIDERS: ADMIT Family Medicine; ATTEND Internal Medicine

== ENCOUNTER 2018-10-17 17:59 | Inpatient (IN) ==
[2018-10-17] MEDS ORDERED: Piperacillin/Tazobactam 3.375 GM in 0.9 % Sodium Chloride Mini Bag 100 ML IVPB ONE (18:47)
[2018-10-17] MEDS ORDERED: Morphine Sulfate 2 MG/ML SYRINGE IVP ONE (18:47)
[2018-10-17] MEDS ORDERED: 0.9 % Sodium Chloride 1,000 ML IVC ONE (18:47)
--- NOTE | 2018-10-17 18:57 | Emergency Department Note ---
Disposition Clinical Impression: Stasis dermatitis of both legs Decubitus ulcer of buttock, unstageable Qualifiers: Laterality: unspecified laterality Qualified Code(s): L89.300 - Pressure ulcer of unspecified buttock, unstageable Anemia Qualifiers: Anemia type: unspecified type Qualified Code(s): D64.9 - Anemia, unspecified Disposition: Admitted As Inpatient Condition: Fair Referrals: NONE,PCP [Primary Care Provider] - Time of Disposition: 19:32 General Adult HPI - General Stated complaint: Cellulititis Time Seen by Provider: 10/17/18 18:12 Source: patient, family, EMS Mode of arrival: EMS Limitations: no limitations Nursing Notes Reviewed: Yes Vital Signs Reviewed: Yes - History of Present Illness HPI Narrative: 78-year-old male history of hypertension and diabetes presents to the emergency department via EMS due to pressure ulcer wound infection. Patient presents with . Patient was transferred from [facility] emergency department to be admitted here for surgical wound debridement. Reportedly the patient has been dealing with a sacral decubitus ulcer for over a year. Recently over the past several days it has grown in tremendous size with wound drainage starting 3 days ago. The who is his sole provider and revenue coordinator was ill the past few days and unable to roll him and move him around to take pressure off. He reportedly was found at home soiled and incontinent. He reports pain to his bottom. No reports of any recent illness. Denies chest pain or shortness of breath. Denies GI bleed symptoms but noted to have black material out of his mouth. He chews snuff and recently spitted out. Dr. Kolton Baugh nursing surgical services director is at bedside in plants to take the patient to the OR later tonight. Labs have been ordered at outside facility and reviewed by myself. - Related Data Home Medications Medication Instructions Recorded Confirmed Metoprolol XL (24 HR) Succ [Toprol 25 mg PO DAILY 04/30/15 10/17/18 Xl] Doxazosin [Cardura] 4 mg PO HS 05/04/18 10/17/18 Previous Rx's Medication Instructions Recorded Methadone 20 mg PO Q8HR #30 tablet 03/22/17 OxyCODONE/APAP 10/325 [Percocet 1 tab PO Q8HR PRN #14 tablet 03/22/17 10/325 MG] Acetaminophen [Tylenol] 650 mg PO Q6HR PRN tablet 05/07/18 Ascorbic Acid [Vitamin C] 500 mg PO 0630 tablet 05/07/18 Cyanocobalamin (B-12) [Vitamin B12] 1,000 mcg PO DAILY tablet 05/07/18 Ferrous Sulfate 325 mg PO 0630 tablet 05/07/18 Bumetanide [Bumex] 0.5 mg PO DAILY tablet 05/15/18 Isosorbide MONOnitrate (24 HR) 60 mg PO DAILY tab.er.24h 05/15/18 [Imdur] Zinc Sulfate 220 mg PO DAILY capsule 05/15/18 Allergies Allergy/AdvReac Type Severity Reaction Status Date / Time No Known Allergies Allergy Verified 06/14/18 11:57 Limitations: ROS unobtainable due to patients medical condition Past Medical History - Past Medical History Source: old records reviewed, obtained from family Medical history: Reports: atrial fibrillation, cardiomyopathy, CHF, coronary artery disease, diabetes, hyperlipidemia, hypertension, peripheral artery disease, venous stasis Surgical history: Reports: hip replacement Psychiatric history: Reports: anxiety - Social History Smoking Status: Former smoker Smokeless Tobacco Status: No Alcohol use: Reports: none Drug use: Reports: none Physical Exam - General Limitations: no limitations General appearance: alert, other (Disheveled, unkept) - Head Head exam: atraumatic, normocephalic, normal inspection - Eye Eye exam: Present: normal appearance, EOMI - ENT ENT exam: mucous membranes dry - Expanded ENT Exam External ear exam: Present: normal external inspection Mouth exam: Present: other (black debris in mout reported snuff) Teeth exam: Present: other (poor dentition) - Neck Neck exam: Present: normal inspection, full ROM - Chest Chest inspection: Present: normal inspection, symmetric chest wall rise. Absent: tenderness - Respiratory Respiratory exam: Present: other (coarse). Absent: respiratory distress - Cardiovascular Cardiovascular exam: Present: regular rate, normal rhythm, normal heart sounds - Expanded Cardiovascular Exam Peripheral pulses: 2+: radial (R), radial (L) - Abdominal Exam Abdominal exam: Present: soft, Non-Tender. Absent: tenderness - Neurological Exam Neurological exam: Present: alert - Psychiatric Psychiatric exam: Present: flat affect - Skin Skin exam: Present: other (skin tenting, 2 large unstageable sacral pressure ulcers with necrotic tissue, superior is open to air with serosanginuous drainage) Course Course Narrative: He has 2 large sacral decubitus ulcers unsustainable at this time. I reviewed the CT scan from outside facility as well as the labs. Pertinent labs have been attached to my note. He will be initiated on antibiotics Vancomycin and Zosyn here further request of the on-call surgeon. Morphine for pain at this time. Cultures were obtained at the outside facility. No further labs necessary at this time. He will be admitted to the medicine group with surgical consultation. There is necrotic tissue noted but no obvious crepitus. To be taken to the operating room urgently when available. Laboratory Tests 10/17/18 10/17/18 10/17/18 13:10 13:15 13:15 WBC 6.9 Hgb 7.0 L Plt Count 191 PT 15.7 H INR 1.4 Sodium Potassium Chloride Carbon Dioxide BUN Creatinine Glucose Lactic Acid Urine Color Yellow Urine pH 5.5 Urine Glucose (UA) Normal Urine Ketones Negative Urine Blood Moderate H Urine Nitrite Negative Ur Leukocyte Esterase Negative Urine Microscopic RBC 5-15 H Urine Microscopic WBC 5-15 H Urine Bacteria Moderate H Ur Culture Indicated? YES A 10/17/18 10/17/18 13:15 13:15 WBC Hgb Plt Count PT INR Sodium 140 Potassium 3.5 Chloride 103 Carbon Dioxide 28 BUN 16 Creatinine 0.87 Glucose 115 H Lactic Acid 1.2 Urine Color Urine pH Urine Glucose (UA) Urine Ketones Urine Blood Urine Nitrite Ur Leukocyte Esterase Urine Microscopic RBC Urine Microscopic WBC Urine Bacteria Ur Culture Indicated? CT/CT abd pelvis w iv no oral IMPRESSION: 1. Sacral decubitus ulcer in the left buttock with soft tissue gas and swelling in this region. There is no discrete or drainable fluid collection although pockets of fluid and gas are noted in this region. The soft tissue gas also extends laterally and superiorly within the soft tissues raising suspicion for early necrotizing fasciitis. 2. No acute abdominal or pelvic abnormality is otherwise noted. 3. Mild inguinal adenopathy, likely reactive. 4. Diffuse sclerotic lesions are noted throughout the visualized skeleton compatible with metastatic disease until proven otherwise. 5. Small bilateral pleural effusions with adjacent atelectasis. 6. Nonobstructing right renal calculus. Results were called by Dr. Eunice Strange MD to Diana Nash MD on 10/17/2018 at 15:08. D/ / 10/17/2018 16:08:31 Eunice Strange MD / earnold Interpreting Provider: Eunice Strange MD - Consultations Consultation #1: Spoke with on-call hospitalist lyssa Ray to admit for unstageable pressure ulcer. No further orders at this time. A type and screen was performed as his hemoglobin is 7 and appears to be stable however given his anticipation of operation may require transfusion Vital Signs Temperature 98.5 F 10/17/18 18:40 Pulse Rate 82 10/17/18 18:40 Respiratory Rate 16 10/17/18 18:40 Blood Pressure 124/58 10/17/18 18:40 O2 Sat by Pulse Oximetry 100 10/17/18 18:40 Temperature 98.5 F 10/17/18 18:40 Pulse Rate 82 10/17/18 18:40 Respiratory Rate 16 10/17/18 18:40 Blood Pressure 121/55 10/17/18 20:08 O2 Sat by Pulse Oximetry 100 10/17/18 18:40 Oxygen Delivery Oxygen Delivery Room Air Medical Decision Making - MDM Narrative Medical decision making narrative: Patient was discussed with my attending physician who agrees with ED management and final disposition. They independently evaluated the patient. Please refer to their attestation to this encounter for additional information. This note was generated by [employer] voice recognition software and as a result grammatical or spelling errors may occur using this program. - Medical Records Medical records reviewed: Yes I reviewed the patient's medical records. - Lab Data Lab Results 10/17/18 Range/Units 19:15 Blood Type A POSITIVE Antibody Screen NEGATIVE Attestation Statement - Attestation Attestation: I have seen this patient with the resident physician, I have personally eval uated this patient. I had reviewed the chart and document dictation by the resident physician and aM in agreement with the information documented by the resident physician. Please see documentation by the resident physician for complete chart including past medical history, family medical history, review of systems, current history and physical and laboratory and imaging studies. I was present for all procedures, provided direct supervision for all procedures, was present for the entirety of all procedures and provided direct guidance during the procedures. Please see documentation by the resident physician for any procedures performed. I have reviewed all interpretations of EKGs, and reviewed all EKGs performed on patient's as well. I have also reviewed reports of imaging as provided by radiology.
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
[2018-10-17] MEDS ORDERED: Naloxone 0.4 MG/ML INJ IVP PRN (20:44)
[2018-10-17 21:17] LABS: Basophils % 0.1 %; Eosinophils # 0.1 K/mcL (0.0-0.6); Eosinophils % 1.9 %; Hematocrit 22.8 % (37.5-50.1); Lymphocytes # 0.8 K/mcL (0.6-4.6); Lymphocytes % 11.5 %; Mean Corpuscular HGB Conc 30.7 g/dL (31.6-35.5); Mean Corpuscular Volume 94.6 fL (83.0-100.0); Mean Platelet Volume 9.2 fL (9.4-12.4); Monocytes # 0.3 K/mcL (0.0-1.3); Monocytes % 3.7 %; Neutrophils # 5.6 K/mcL (1.6-8.9); Platelet Count 192 K/mcL (140-400); Red Blood Count 2.41 M/mcL (4.19-5.50); Red Cell Distribution Width 16.4 % (11.5-14.5); Segmented Neutrophils % 81.8 %; White Blood Count 6.8 K/mcL (4.3-11.1)
[2018-10-17 21:37] LABS: Anisocytosis 1+ (Not Present); Hypochromasia Present (Not Present); Platelet Estimate Normal (Normal)
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
[2018-10-17] MEDS ORDERED: 0.9 % Sodium Chloride 250 ML ONE (23:06)
[2018-10-17] MEDS ORDERED: D5% in Water 1,000 ML IVC PRN (23:50)
[2018-10-17] MEDS ORDERED: *HR* Dextrose 50 % in Water (Syg) 50 ML SYRINGE IVP PRN (23:50)
[2018-10-17] MEDS ORDERED: Dextrose Gel 15 GM/37.5 ML TUBE PO PRN ×2 (23:50)
[2018-10-18] MEDS ORDERED: Piperacillin/Tazobactam 3.375 GM in 0.9 % Sodium Chloride Mini Bag 100 ML IVPB SCH
[2018-10-18] MEDS ORDERED: Insulin LISPRO 300 UNITS/3 ML VIAL SQ SCH
[2018-10-18] MEDS ORDERED: Ringers Solution, Lactated 1,000 ML ONE (00:59)
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
[2018-10-18] MEDS ORDERED: Vancomycin 1,000 MG VIAL ONE (01:16)
[2018-10-18] MEDS ORDERED: *HR* Propofol 200 MG/20 ML VIAL IVP ONE (01:24)
[2018-10-18] MEDS ORDERED: *HR* Promethazine 25 MG/ML VIAL IVP PRN ×2 (01:38→03:35)
[2018-10-18] MEDS ORDERED: *HR* Labetalol 20 MG/4 ML SYRINGE IVP PRN ×2 (01:38→03:35)
[2018-10-18] MEDS ORDERED: Ondansetron 4 MG/2 ML VIAL IVP ONE (01:38)
[2018-10-18] MEDS ORDERED: *HR* OxyCODONE Immed Rel 5 MG TABLET PO PRN (01:38)
[2018-10-18] MEDS ORDERED: *HR* HYDROmorphone (PF) 1 MG/ML SYRINGE IVP PRN ×2 (01:38→03:35)
[2018-10-18] MEDS ORDERED: Ondansetron 4 MG/2 ML VIAL ONE (01:45)
[2018-10-18] MEDS ORDERED: Dexamethasone 4 MG/ML VIAL ONE (01:45)
[2018-10-18] MEDS ORDERED: Lidocaine -MPF 2% 2 ML VIAL ONE (01:45)
[2018-10-18] MEDS ORDERED: *HR* Succinylcholine 200 MG/10 ML VIAL IVP ONE (01:45)
[2018-10-18] MEDS ORDERED: *HR* FentaNYL (PF) 100 MCG/2 ML VIAL ONE (01:47)
--- NOTE | 2018-10-18 03:08 | Operative Note ---
Date of procedure: 10/18/18 Pre-op diagnosis: infected sacral ulcer Post-op diagnosis: other (necrotizing soft tissue infection of sacral region) Procedure: excisonal debridement of sacral ulcer washout of sacral ulcer Implants: none Complications: none Anesthesia: GETA Local Anesthetics: 0.5% Sensorcaine HCL SubQ (cc) Surgeon: Kolton Baugh Was there an nurse practitioner physicians assistant present: No Estimated blood loss (cc): 10 Specimen: none Condition: stable Disposition: PACU Procedure in Detail: 78M with infected sacral wound with purulent drainage; Patient presents for surgical evaluation; patient was brought into the operating room suite, placed in supine position, mechanical dvt prophylaxis placed. he then underwent smooth induction of anesthesia, had preoperative antibiotics and prepped and draped in the usual fashion. A timeout was held identifying correct patient pathology, procedure, pathology, and physician. I started by removing the overlying necrotic skin. Directly beneath it was necrotizing subcutaneous tissue which was debrided down to the muscle layer. The final size of the wound was 8cm x 4cm x 4cm. I then controlled for hemostasis with electrocautery. I packed the wound with a kerlix rolled soaked with dakin's solution; I then concluded the procedure and the patient was escorted to pacu in stable condition.
[2018-10-18] MEDS ORDERED: D5% in Water 1,000 ML IVC PRN (03:35)
[2018-10-18] MEDS ORDERED: Naloxone 0.4 MG/ML INJ IVP PRN (03:35)
[2018-10-18] MEDS ORDERED: *HR* Dextrose 50 % in Water (Syg) 50 ML SYRINGE IVP PRN (03:35)
[2018-10-18] MEDS ORDERED: Dextrose Gel 15 GM/37.5 ML TUBE PO PRN ×2 (03:35)
--- NOTE | 2018-10-18 04:00 | Anesthesia Evaluation Post Op ---
Date of Encounter: 10/18/18 Time of Encounter: 03:56 - Vital Signs Vital Signs: Vital Signs/O2 Sat, Most Current Temp Pulse Resp BP Pulse Ox 97.6 F 87 16 137/72 94 10/18/18 03:42 10/18/18 03:42 10/18/18 03:42 10/18/18 03:42 10/18/18 03:42 - Lungs Lungs: Clear Ascult./Percussion - Airway Airway: Non-obstructed - Cardiovascular Regular Rate - Mental Status Mental Status: Alert & Oriented, Answers Appropriately - Pain Pain Scale: 0 Pain Scale used: Numeric (1 - 10) - Nausea Vomiting Nausea Vomiting: Not Present - Hydration Hydration: NPO, Holm catheter - Discharge PostOp Status: Transfer Patient to floor
[2018-10-18] MEDS ORDERED: 0.9 % Sodium Chloride 250 ML ONE (05:38)
[2018-10-18] MEDS: Insulin LISPRO 300 UNITS/3 ML VIAL SQ SCH ×3 (06:14→17:42)
[2018-10-18] MEDS: Clindamycin 600 MG/50 ML 600 MG/50 ML IV.SOLN IVPB SCH ×2 (08:30→16:01)
[2018-10-18] MEDS: Piperacillin/Tazobactam 3.375 GM in 0.9 % Sodium Chloride Mini Bag 100 ML IVPB SCH ×2 (09:25→17:39)
[2018-10-18] MEDS: *HR* Methadone 10 MG TABLET PO SCH ×2 (12:12→15:59)
[2018-10-18] MEDS: Metoprolol XL (24 HR) Succ 25 MG TAB.ER.24H PO SCH (12:12)
[2018-10-18] MEDS: Isosorbide MONOnitrate (24 HR) 30 MG TAB.ER.24H PO SCH (12:12)
--- NOTE | 2018-10-18 13:29 | Internal Med Progress Note ---
Hospitalist Progress Note - Encounter Date of Encounter: 10/18/18 Time of Encounter: 13:29 - Subjective Interval History: Evaluated patient earlier today. Was lying down in bed complaining of increased thirst. States that he drinks a lot of water at home. He also complains of pain in his lower back at site of his sacral wound. Underwent excisional d ebridement of sacral ulcer with washout last night. Doing well postprocedure. No fevers reported overnight. - Exam Vitals: Temp Pulse Resp BP Pulse Ox 98.9 F 68 16 108/68 94 10/18/18 11:53 10/18/18 11:53 10/18/18 11:53 10/18/18 11:53 10/18/18 11:53 Exam: General: Patient is alert, no acute distress, oriented x 3 Respiratory: Decreased breath sounds at both bases Cardiovascular: Regular rate and rhythm. s1 and s2 normal No clicks, rubs, gallops, or murmurs. No pedal edema Abdomen: Abdomen is soft, nontender. Bowel sounds are present Musculoskeletal: Spontaneously moving all extremities; stasis dermatitis on both lower extremities Skin: warm, dry, intact. Sacral wound not examined today Neuro: Alert oriented x 3 normal cranial nerves, no focal deficits - Assessment and Plan (1) Decubitus ulcer of buttock, unstageable Current Visit: Yes Status: Chronic (2) Anemia Current Visit: Yes Status: Acute (3) Atrial fibrillation Current Visit: No Status: Chronic (4) Stasis dermatitis of both legs Current Visit: Yes Status: Chronic (5) Diabetes Current Visit: No Status: Chronic (6) DVT prophylaxis Current Visit: Yes Status: Acute DVT Prophylaxis: Will resume Xarelto if HGb stable - Summary of Assessment and Plan Summary of Assessment and Plan: Acute infection off Sacral decubitus ulcer, unstageable: Status post excisional debridement. Postop day 0. Continue current antibiotics. Local wound care. Surgery following. Chronic anemia: Hemoglobin 7 this morning. 2 units PRBC transfused. Will check levels later today. Chronic Atrial fibrillation: Rate controlled. We will resume Xarelto if okay with surgery and if hemoglobin levels are stable. Diabetes mellitus type 2: Monitor blood sugars. Sliding scale insulin. Diabetic diet. Failure to thrive at home: aircraft worker consulted. PTOT also consulted. - Time Spent with Patient Total time spent is greater than 50% in coordination of care (as documented) at patient's floor/unit and/or counseling patient: Internal Medicine: Result - Labs CBC & Chem 7: 10/17/18 19:13 Labs: Short CBC 10/17/18 Range/Units 19:13 WBC 6.8 (4.3-11.1) K/mcL Hgb 7.0 L (12.9-16.9) g/dL Hct 22.8 L (37.5-50.1) % Plt Count 192 (140-400) K/mcL Neutrophils # 5.6 (1.6-8.9) K/mcL Consult Discharge Plan - Plan __ (1) Decubitus ulcer of buttock, unstageable Qualifiers: Laterality: unspecified laterality Qualified Code(s): L89.300 - Pressure ulcer of unspecified buttock, unstageable (2) Anemia Qualifiers: Anemia type: unspecified type Qualified Code(s): D64.9 - Anemia, unspecified (3) Atrial fibrillation Qualifiers: Atrial fibrillation type: chronic Qualified Code(s): I48.2 - Chronic atrial fibrillation (5) Diabetes Qualifiers: Diabetes mellitus type: type 2 Diabetes mellitus long term care administrator insulin use: without long term care administrator use Diabetes mellitus complication status: with kidney complications Diabetes mellitus complication detail: with chronic kidney d isease Chronic kidney disease stage: stage 3 (moderate) Qualified Code(s): E11.22 - Type 2 diabetes mellitus with diabetic chronic kidney disease; N18.3 - Chronic kidney disease, stage 3 (moderate)
[2018-10-18 15:08] LABS: Hematocrit 24.8 % (37.5-50.1); Hemoglobin 7.8 g/dL (12.9-16.9)
[2018-10-18] MEDS: *HR* Heparin 5,000 UNIT/ML VIAL SQ SCH (18:09)
[2018-10-19] MEDS ORDERED: Piperacillin/Tazobactam 3.375 GM VIAL ONE (00:21)
[2018-10-19] MEDS: Piperacillin/Tazobactam 3.375 GM in 0.9 % Sodium Chloride Mini Bag 100 ML IVPB SCH ×2 (00:45→09:16)
[2018-10-19] MEDS: Clindamycin 600 MG/50 ML 600 MG/50 ML IV.SOLN IVPB SCH ×3 (00:46→15:31)
[2018-10-19] MEDS: *HR* Methadone 10 MG TABLET PO SCH ×4 (00:48→23:27)
[2018-10-19] MEDS: Insulin LISPRO 300 UNITS/3 ML VIAL SQ SCH ×5 (00:48→23:28)
[2018-10-19] MEDS: Acetaminophen 325 MG TABLET PO PRN ×2 (03:49→12:24)
[2018-10-19] MEDS: *HR* Heparin 5,000 UNIT/ML VIAL SQ SCH ×2 (05:49→20:15)
[2018-10-19] MEDS: Ascorbic Acid 500 MG TABLET PO SCH (05:49)
[2018-10-19 06:26] LABS: Eosinophils % 0.8 %; Hematocrit 23.5 % (37.5-50.1); Hemoglobin 7.3 g/dL (12.9-16.9); Immature Granulocytes % 1.3 % (0-4); Lymphocytes # 1.1 K/mcL (0.6-4.6); Lymphocytes % 20.7 %; Mean Corpuscular HGB Conc 31.1 g/dL (31.6-35.5); Mean Corpuscular Hemoglobin 29.4 pg (28.0-33.3); Mean Corpuscular Volume 94.8 fL (83.0-100.0); Mean Platelet Volume 9.9 fL (9.4-12.4); Monocytes # 0.3 K/mcL (0.0-1.3); Monocytes % 5.1 %; Neutrophils # 3.8 K/mcL (1.6-8.9); Platelet Count 165 K/mcL (140-400); Red Blood Count 2.48 M/mcL (4.19-5.50); Red Cell Distribution Width 16.6 % (11.5-14.5); Segmented Neutrophils % 72.1 %; White Blood Count 5.3 K/mcL (4.3-11.1)
[2018-10-19 06:49] LABS: BUN/Creatinine Ratio 24 (6-26); Blood Urea Nitrogen 26 mg/dL (8-23); Calcium 7.4 mg/dL (8.6-10.3); Carbon Dioxide 24 mEq/L (23-29); Chloride 107 mEq/L (98-107); Glucose 200 mg/dL (70-105); Osmolality,Calculated 302 (280-300); Potassium 3.7 mEq/L (3.5-5.1); Sodium 141 mEq/L (136-145); eGFR For African Americans > 60 (> 60); eGFR For Non-African Americans > 60 (> 60)
[2018-10-19 06:50] LABS: Platelet Estimate Normal (Normal)
[2018-10-19] MEDS: Bumetanide 1 MG TABLET PO SCH (09:10)
[2018-10-19] MEDS: Zinc Sulfate 220 MG CAPSULE PO SCH (09:11)
[2018-10-19] MEDS: Metoprolol XL (24 HR) Succ 25 MG TAB.ER.24H PO SCH (09:11)
[2018-10-19] MEDS: Isosorbide MONOnitrate (24 HR) 30 MG TAB.ER.24H PO SCH (09:11)
[2018-10-19] MEDS: Cyanocobalamin (B-12) 1,000 MCG TABLET PO SCH (09:20)
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
--- NOTE | 2018-10-19 11:59 | Event Note ---
Date of Encounter: 10/19/18 Time of Encounter: 11:58 Patient continue daily dressing changes with Dakin's solution. Follow-up with Dr. Baugh in wound care, one week after discharge. Continue wound care in the hospital at this time. Surgery will sign off at this time. Please call or reconsult if any further questions or needs arise.
--- NOTE | 2018-10-19 13:51 | Internal Med Progress Note ---
Hospitalist Progress Note - Encounter Date of Encounter: 10/19/18 Time of Encounter: 13:48 - Subjective Interval History: Patient is awake and alert. Tolerating diet well. Complains of pain in his lower back region where he has his sacral ulcer. No fever or chills reported overnight. - Exam Vitals: Temp Pulse Resp BP Pulse Ox 98.7 F 57 16 112/59 100 10/19/18 11:11 10/19/18 11:11 10/19/18 11:11 10/19/18 11:11 10/19/18 11:11 Exam: General: Patient is alert, no acute distress, oriented x 3 Respiratory: Good respiratory effort. Normal breath sounds. No wheezing or crackles. Cardiovascular: Regular rate and rhythm. s1 and s2 normal No clicks, rubs, gal lops, or murmurs. No pedal edema Abdomen: Abdomen is soft, nontender. Bowel sounds are present Musculoskeletal: Spontaneously moving all extremities Skin: warm, dry, intact. Sacral decubitus ulcer with necrotic tissue and foul smelling drainage Neuro: Alert oriented x 3 normal cranial nerves, no focal deficits - Assessment and Plan (1) Decubitus ulcer of buttock, unstageable Current Visit: Yes Status: Chronic (2) Anemia Current Visit: Yes Status: Acute (3) Atrial fibrillation Current Visit: No Status: Chronic (4) Stasis dermatitis of both legs Current Visit: Yes Status: Chronic (5) Diabetes Current Visit: No Status: Chronic (6) DVT prophylaxis Current Visit: Yes Status: Acute DVT Prophylaxis: SQ heparin - Summary of Assessment and Plan Summary of Assessment and Plan: Acute infection of Sacral decubitus ulcer, unstageable: Status post excisional debridement. Postop day 1. Infectious disease consulted to recommend antibiotics. Continue vancomycin and clindamycin and Zosyn. Follow culture results. Chronic anemia: Hemoglobin 7.3 this morning. Patient had received 2 units PRBC transfusion yesterday but his hemoglobin levels remain at 7. We will continue to monitor. Hold off on resuming Xarelto for now. Chronic Atrial fibrillation: Rate controlled. Hemoglobin 7.3. Did not improve significantly despite 2 units PRBC transfusion. We will continue to hold Xarelto for now. Readdress this tomorrow. Diabetes mellitus type 2: Blood sugars are elevated. We will increase insulin regimen. Failure to thrive as an adult: Recommend placement to skilled rehabilitation to help his wound heal and also to obtain physical therapy. Awaiting placement to skilled rehabilitation. - Time Spent with Patient Total time spent is greater than 50% in coordination of care (as documented) at patient's floor/unit and/or counseling patient: Internal Medicine: Result - Labs CBC & Chem 7: 10/19/18 05:30 10/19/18 05:30 Labs: Short CBC 10/18/18 10/19/18 Range/Units 14:40 05:30 WBC 5.3 (4.3-11.1) K/mcL Hgb 7.8 L 7.3 L (12.9-16.9) g/dL Hct 24.8 L 23.5 L (37.5-50.1) % Plt Count 165 (140-400) K/mcL Neutrophils # 3.8 (1.6-8.9) K/mcL BMP 10/19/18 05:30 Sodium 141 Potassium 3.7 Chloride 107 Carbon Dioxide 24 BUN 26 H Creatinine 1.08 Glucose 200 H Calcium 7.4 L Consult Discharge Plan - Plan Referrals: Kolton Baugh MD [Non-Partnered Physician] - (Please make an appointment for follow-up in wound care, approximately one week after patient is to be discharged) NONE,PCP [Primary Care Provider] - (1) Decubitus ulcer of buttock, unstageable Qualifiers: Laterality: unspecified laterality Qualified Code(s): L89.300 - Pressure ulcer of unspecified buttock, unstageable (2) Anemia Qualifiers: Anemia type: unspecified type Qualified Code(s): D64.9 - Anemia, unspecified (3) Atrial fibrillation Qualifiers: Atrial fibrillation type: chronic Qualified Code(s): I48.2 - Chronic atrial fibrillation (5) Diabetes Qualifiers: Diabetes mellitus type: type 2 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
[2018-10-19] MEDS: Cefepime HCl 2,000 MG in 0.9 % Sodium Chloride Mini Bag 100 ML IVPB SCH (18:05)
[2018-10-19] MEDS: *HR* OxyCODONE/APAP 10/325 TABLET PO PRN (18:08)
[2018-10-19] MEDS: metroNIDAZOLE 500 MG TABLET PO SCH (20:17)
[2018-10-20] MEDS: Cefepime HCl 2,000 MG in 0.9 % Sodium Chloride Mini Bag 100 ML IVPB SCH ×2 (06:14→19:25)
[2018-10-20] MEDS: *HR* Heparin 5,000 UNIT/ML VIAL SQ SCH (06:14)
[2018-10-20] MEDS: Ascorbic Acid 500 MG TABLET PO SCH (06:15)
[2018-10-20 06:19] LABS: Basophils % 0.2 %; Eosinophils # 0.2 K/mcL (0.0-0.6); Eosinophils % 4.1 %; Hematocrit 23.2 % (37.5-50.1); Hemoglobin 7.3 g/dL (12.9-16.9); Immature Granulocytes % 1.8 % (0-4); Lymphocytes # 1.3 K/mcL (0.6-4.6); Lymphocytes % 29.9 %; Mean Corpuscular HGB Conc 31.5 g/dL (31.6-35.5); Mean Corpuscular Hemoglobin 29.8 pg (28.0-33.3); Mean Corpuscular Volume 94.7 fL (83.0-100.0); Mean Platelet Volume 9.2 fL (9.4-12.4); Monocytes # 0.2 K/mcL (0.0-1.3); Monocytes % 3.9 %; Nucleated Red Blood Cells 0.5 /100 WBC (0); Platelet Count 162 K/mcL (140-400); Red Blood Count 2.45 M/mcL (4.19-5.50); Red Cell Distribution Width 16.4 % (11.5-14.5); Segmented Neutrophils % 60.1 %; White Blood Count 4.4 K/mcL (4.3-11.1)
[2018-10-20 06:24] LABS: Neutrophils # 2.6 K/mcL (1.6-8.9)
[2018-10-20 06:33] LABS: BUN/Creatinine Ratio 27 (6-26); Blood Urea Nitrogen 31 mg/dL (8-23); Calcium 7.3 mg/dL (8.6-10.3); Carbon Dioxide 26 mEq/L (23-29); Chloride 103 mEq/L (98-107); Glucose 82 mg/dL (70-105); Osmolality,Calculated 292 (280-300); Potassium 3.9 mEq/L (3.5-5.1); Sodium 138 mEq/L (136-145); eGFR For African Americans > 60 (> 60); eGFR For Non-African Americans > 60 (> 60)
[2018-10-20 06:39] LABS: Platelet Estimate Normal (Normal)
[2018-10-20 06:40] LABS: Hypochromasia Present (Not Present); Microcytosis Present (Not Present)
[2018-10-20] MEDS: Insulin LISPRO 300 UNITS/3 ML VIAL SQ SCH ×4 (07:52→20:59)
[2018-10-20] MEDS: Zinc Sulfate 220 MG CAPSULE PO SCH (10:08)
[2018-10-20] MEDS: Metoprolol XL (24 HR) Succ 25 MG TAB.ER.24H PO SCH (10:08)
[2018-10-20] MEDS: metroNIDAZOLE 500 MG TABLET PO SCH ×3 (10:08→20:57)
[2018-10-20] MEDS: Bumetanide 1 MG TABLET PO SCH (10:08)
[2018-10-20] MEDS: *HR* Methadone 10 MG TABLET PO SCH ×2 (10:08→16:51)
[2018-10-20] MEDS: Cyanocobalamin (B-12) 1,000 MCG TABLET PO SCH (10:08)
[2018-10-20] MEDS: Isosorbide MONOnitrate (24 HR) 30 MG TAB.ER.24H PO SCH (10:08)
--- NOTE | 2018-10-20 10:14 | Internal Med Progress Note ---
Hospitalist Progress Note - Encounter Date of Encounter: 10/20/18 Time of Encounter: 09:00 - Subjective Interval History: Patient reports that his pain is controlled better. Denies any other new complaints at this time. Tolerating diet well. No fever or chills reported overnight. - Exam Vitals: Temp Pulse Resp BP Pulse Ox 97.6 F 62 14 102/55 97 10/20/18 06:45 10/20/18 06:45 10/20/18 06:45 10/20/18 06:45 10/20/18 06:45 Exam: General: Patient is alert, mild distress, oriented x 3 Respiratory: Good respiratory effort. Normal breath sounds. No wheezing or crackles. Cardiovascular: Regular rate and rhythm. s1 and s2 normal No clicks, rubs, gallops, or murmurs. No pedal edema Abdomen: Abdomen is soft, nontender. Bowel sounds are present Musculoskeletal: Spontaneously moving all extremities Skin: warm, dry, intact. Sacral decubitus ulcer bandaged. Neuro: Alert oriented x 3 normal cranial nerves, no focal deficits - Assessment and Plan (1) Decubitus ulcer of buttock, unstageable Current Visit: Yes Status: Chronic (2) Anemia Current Visit: Yes Status: Acute (3) Atrial fibrillation Current Visit: No Status: Chronic (4) Stasis dermatitis of both legs Current Visit: Yes Status: Chronic (5) Diabetes Current Visit: No Status: Chronic (6) DVT prophylaxis Current Visit: Yes Status: Acute DVT Prophylaxis: Stop subcutaneous heparin. Resume Xarelto. - Summary of Assessment and Plan Summary of Assessment and Plan: Acute infection of Sacral decubitus ulcer, unstageable: Status post excisional debridement. Postop day 2. Continue current antibiotics. Chronic anemia: Hemoglobin levels remained stable but low. 7.3. We will resume Xarelto tonight. Chronic Atrial fibrillation: Heart rate is well controlled. Resume Xarelto. Diabetes mellitus type 2: Improved blood sugars. Continue current insulin regimen. Failure to thrive as an adult: Placement to skilled rehabilitation when medically stable for discharge. Chronic diastolic congestive heart failure: Not in acute exacerbation. - Time Spent with Patient Total time spent is greater than 50% in coordination of care (as documented) at patient's floor/unit and/or counseling patient: Internal Medicine: Result - Labs CBC & Chem 7: 10/20/18 05:09 10/20/18 05:09 Labs: Short CBC 10/20/18 Range/Units 05:09 WBC 4.4 (4.3-11.1) K/mcL Hgb 7.3 L (12.9-16.9) g/dL Hct 23.2 L (37.5-50.1) % Plt Count 162 (140-400) K/mcL Neutrophils # 2.6 (1.6-8.9) K/mcL BMP 10/20/18 05:09 Sodium 138 Potassium 3.9 Chloride 103 Carbon Dioxide 26 BUN 31 H Creatinine 1.13 Glucose 82 Calcium 7.3 L Consult Discharge Plan - Plan Referrals: Kolton Baugh MD [Non-Partnered Physician] - (Please make an appointment for follow-up in wound care, approximately one week after patient is to be discharged) NONE,PCP [Primary Care Provider] - (1) Decubitus ulcer of buttock, unstageable Qualifiers: Laterality: unspecified laterality Qualified Code(s): L89.300 - Pressure ulcer of unspecified buttock, unstageable (2) Anemia Qualifiers: Anemia type: unspecified type Qualified Code(s): D64.9 - Anemia, unspecified (3) Atrial fibrillation Qualifiers: Atrial fibrillation type: chronic Qualified Code(s): I48.2 - Chronic atrial fibrillation (5) Diabetes Qualifiers: Diabetes mellitus type: type 2 Diabetes mellitus 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
[2018-10-20] MEDS: *HR* Rivaroxaban 15 MG TABLET PO SCH (16:51)
[2018-10-21] MEDS: *HR* Methadone 10 MG TABLET PO SCH ×3 (03:05→16:11)
[2018-10-21 04:38] LABS: Basophils % 0.3 %; Eosinophils # 0.2 K/mcL (0.0-0.6); Eosinophils % 4.9 %; Hematocrit 23.6 % (37.5-50.1); Hemoglobin 7.3 g/dL (12.9-16.9); Immature Granulocytes % 1.6 % (0-4); Mean Corpuscular HGB Conc 30.9 g/dL (31.6-35.5); Mean Corpuscular Hemoglobin 29.3 pg (28.0-33.3); Mean Corpuscular Volume 94.8 fL (83.0-100.0); Mean Platelet Volume 9.2 fL (9.4-12.4); Monocytes # 0.2 K/mcL (0.0-1.3); Monocytes % 3.9 %; Neutrophils # 2.4 K/mcL (1.6-8.9); Platelet Count 163 K/mcL (140-400); Red Blood Count 2.49 M/mcL (4.19-5.50); Segmented Neutrophils % 63.3 %; White Blood Count 3.8 K/mcL (4.3-11.1)
[2018-10-21 04:56] LABS: BUN/Creatinine Ratio 24 (6-26); Blood Urea Nitrogen 26 mg/dL (8-23); Calcium 7.5 mg/dL (8.6-10.3); Carbon Dioxide 27 mEq/L (23-29); Chloride 101 mEq/L (98-107); Glucose 106 mg/dL (70-105); Osmolality,Calculated 289 (280-300); Potassium 3.5 mEq/L (3.5-5.1); Sodium 137 mEq/L (136-145); eGFR For African Americans > 60 (> 60); eGFR For Non-African Americans > 60 (> 60)
[2018-10-21 05:17] LABS: Platelet Estimate Normal (Normal)
[2018-10-21] MEDS: Cefepime HCl 2,000 MG in 0.9 % Sodium Chloride Mini Bag 100 ML IVPB SCH ×2 (05:32→17:31)
[2018-10-21] MEDS: Ascorbic Acid 500 MG TABLET PO SCH (05:35)
[2018-10-21] MEDS: Bumetanide 1 MG TABLET PO SCH (08:47)
[2018-10-21] MEDS: Isosorbide MONOnitrate (24 HR) 30 MG TAB.ER.24H PO SCH (08:47)
[2018-10-21] MEDS: Insulin LISPRO 300 UNITS/3 ML VIAL SQ SCH ×3 (08:47→16:11)
[2018-10-21] MEDS: Metoprolol XL (24 HR) Succ 25 MG TAB.ER.24H PO SCH (08:48)
[2018-10-21] MEDS: Cyanocobalamin (B-12) 1,000 MCG TABLET PO SCH (08:48)
[2018-10-21] MEDS: metroNIDAZOLE 500 MG TABLET PO SCH ×3 (08:48→21:51)
[2018-10-21] MEDS: Zinc Sulfate 220 MG CAPSULE PO SCH (08:48)
--- NOTE | 2018-10-21 11:55 | Internal Med Progress Note ---
Hospitalist Progress Note - Encounter Date of Encounter: 10/21/18 Time of Encounter: 11:54 - Subjective Interval History: Patient lying down in bed. Comfortable. Pain in his lower back is controlled. No fever or chills reported overnight. No chest pain or palpitations. Tolerating diet well. He does report increased swelling in his hands. - Exam Vitals: Temp Pulse Resp BP Pulse Ox 97.4 F L 70 16 123/63 92 10/21/18 07:08 10/21/18 07:08 10/21/18 07:08 10/21/18 07:08 10/21/18 07:08 Exam: General: Patient is alert, no acute distress, oriented x 3 Respiratory: Good respiratory effort. Normal breath sounds. No wheezing or crackles. Cardiovascular: Regular rate and rhythm. s1 and s2 normal No clicks, rubs, gallops, or murmurs. No pedal edema Abdomen: Abdomen is soft, nontender. Bowel sounds are present Musculoskeletal: Spontaneously moving all extremities; stasis dermatitis in both lower extremities. He does have edema around his hands on both sides. Skin: warm, dry, intact. Neuro: Alert oriented x 3 normal cranial nerves, no focal deficits - Assessment and Plan (1) Decubitus ulcer of buttock, unstageable Current Visit: Yes Status: Chronic (2) Anemia Current Visit: Yes Status: Acute (3) Atrial fibrillation Current Visit: No Status: Chronic (4) Stasis dermatitis of both legs Current Visit: Yes Status: Chronic (5) Diabetes Current Visit: No Status: Chronic (6) DVT prophylaxis Current Visit: Yes Status: Acute DVT Prophylaxis: On xarelto - Summary of Assessment and Plan Summary of Assessment and Plan: Acute infection of Sacral decubitus ulcer, unstageable: Status post excisional debridement. Postop day 3. Follow infectious disease recommendations. Continue current antibiotics. Continue local wound care. Culture results are so far negative. Chronic anemia: Stable. Continue Xarelto while monitoring hemoglobin levels closely Chronic Atrial fibrillation: Heart rate remains well controlled. On Xarelto for anticoagulation Diabetes mellitus type 2: Blood sugars are well controlled. Failure to thrive as an adult: Placement to skilled rehabilitation when medically stable for discharge. Chronic diastolic congestive heart failure: Patient having increasing swelling in his hands. Will give 1 dose of IV Lasix and place him back on Bumex. - Time Spent with Patient Total time spent is greater than 50% in coordination of care (as documented) at patient's floor/unit and/or counseling patient: Internal Medicine: Result - Labs CBC & Chem 7: 10/21/18 04:10 10/21/18 04:10 Labs: Short CBC 10/21/18 Range/Units 04:10 WBC 3.8 L (4.3-11.1) K/mcL Hgb 7.3 L (12.9-16.9) g/dL Hct 23.6 L (37.5-50.1) % Plt Count 163 (140-400) K/mcL Neutrophils # 2.4 (1.6-8.9) K/mcL BMP 10/21/18 04:10 Sodium 137 Potassium 3.5 Chloride 101 Carbon Dioxide 27 BUN 26 H Creatinine 1.08 Glucose 106 H Calcium 7.5 L Consult Discharge Plan - Plan Referrals: Kolton Baugh MD [Non-Partnered Physician] - (Please make an appointment for follow-up in wound care, approximately one week after patient is to be discharged) NONE,PCP [Primary Care Provider] - __ (1) Decubitus ulcer of buttock, unstageable Qualifiers: Laterality: unspecified laterality Qualified Code(s): L89.300 - Pressure ulcer of unspecified buttock, unstageable (2) Anemia Qualifiers: Anemia type: unspecified type Qualified Code(s): D64.9 - Anemia, unspecified (3) Atrial fibrillation Qualifiers: Atrial fibrillation type: chronic Qualified Code(s): I48.2 - Chronic atrial fibrillation (5) Diabetes Qualifiers: Diabetes mellitus type: type 2 Diabetes mellitus group home insulin use: without group home use Diabetes mellitus complication status: with kidney complications Diabetes mellitus complication detail: with chronic kidney disease Chronic kidney disease stage: stage 3 (moderate) Qualified Code(s): E11.22 - Type 2 diabetes mellitus with diabetic chronic kidney disease; N18.3 - Chronic kidney disease, stage 3 (moderate)
[2018-10-21] MEDS ORDERED: Furosemide 40 MG/4 ML VIAL IVP ONE (12:01)
[2018-10-21] MEDS: *HR* Rivaroxaban 15 MG TABLET PO SCH (17:32)
[2018-10-21] MEDS: *HR* OxyCODONE/APAP 10/325 TABLET PO PRN (19:13)
[2018-10-22] MEDS: Insulin LISPRO 300 UNITS/3 ML VIAL SQ SCH ×4 (00:43→17:03)
[2018-10-22] MEDS: *HR* Methadone 10 MG TABLET PO SCH ×3 (00:51→17:02)
[2018-10-22] MEDS: Cefepime HCl 2,000 MG in 0.9 % Sodium Chloride Mini Bag 100 ML IVPB SCH ×2 (05:53→18:54)
[2018-10-22] MEDS: *HR* OxyCODONE/APAP 10/325 TABLET PO PRN ×2 (05:53→20:09)
[2018-10-22] MEDS: Ascorbic Acid 500 MG TABLET PO SCH (05:53)
[2018-10-22 06:37] LABS: Basophils % 0.2 %; Eosinophils # 0.2 K/mcL (0.0-0.6); Eosinophils % 3.5 %; Hematocrit 23.2 % (37.5-50.1); Hemoglobin 7.3 g/dL (12.9-16.9); Immature Granulocytes % 1.8 % (0-4); Lymphocytes % 21.7 %; Mean Corpuscular HGB Conc 31.5 g/dL (31.6-35.5); Mean Corpuscular Hemoglobin 29.1 pg (28.0-33.3); Mean Corpuscular Volume 92.4 fL (83.0-100.0); Mean Platelet Volume 9.1 fL (9.4-12.4); Monocytes # 0.3 K/mcL (0.0-1.3); Monocytes % 5.5 %; Neutrophils # 3.1 K/mcL (1.6-8.9); Platelet Count 176 K/mcL (140-400); Red Blood Count 2.51 M/mcL (4.19-5.50); Red Cell Distribution Width 15.9 % (11.5-14.5); Segmented Neutrophils % 67.3 %; White Blood Count 4.6 K/mcL (4.3-11.1)
[2018-10-22 06:55] LABS: Anisocytosis 1+ (Not Present); Hypochromasia Present (Not Present); Microcytosis Present (Not Present); Platelet Estimate Normal (Normal)
[2018-10-22 06:59] LABS: BUN/Creatinine Ratio 25 (6-26); Blood Urea Nitrogen 23 mg/dL (8-23); Calcium 7.4 mg/dL (8.6-10.3); Carbon Dioxide 29 mEq/L (23-29); Chloride 102 mEq/L (98-107); Glucose 105 mg/dL (70-105); Osmolality,Calculated 292 (280-300); Potassium 3.4 mEq/L (3.5-5.1); Sodium 139 mEq/L (136-145); eGFR For African Americans > 60 (> 60); eGFR For Non-African Americans > 60 (> 60)
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
--- NOTE | 2018-10-22 10:37 | Internal Med Progress Note ---
<Stephanie Allred - Last Filed: 10/22/18 13:04> Hospitalist Progress Note - Encounter Date of Encounter: 10/22/18 Time of Encounter: 09:10 - Exam Vitals: Temp Pulse Resp BP Pulse Ox 97.8 F 68 16 137/68 96 10/22/18 11:30 10/22/18 11:30 10/22/18 11:30 10/22/18 11:30 10/22/18 11:30 - Assessment and Plan (1) Decubitus ulcer of buttock, unstageable Current Visit: Yes Status: Chronic (2) Anemia Current Visit: Yes Status: Acute (3) Atrial fibrillation Current Visit: No Status: Chronic (4) Stasis dermatitis of both legs Current Visit: Yes Status: Chronic (5) Diabetes Current Visit: No Status: Deleted (6) DVT prophylaxis Current Visit: Yes Status: Acute - Time Spent with Patient Total time spent is greater than 50% in coordination of care (as documented) at patient's floor/unit and/or counseling patient: Internal Medicine: Result - Labs CBC & Chem 7: 10/22/18 06:09 10/22/18 06:09 Labs: Short CBC 10/22/18 Range/Units 06:09 WBC 4.6 (4.3-11.1) K/mcL Hgb 7.3 L (12.9-16.9) g/dL Hct 23.2 L (37.5-50.1) % Plt Count 176 (140-400) K/mcL Neutrophils # 3.1 (1.6-8.9) K/mcL BMP 10/22/18 06:09 Sodium 139 Potassium 3.4 L Chloride 102 Carbon Dioxide 29 BUN 23 Creatinine 0.91 Glucose 105 Calcium 7.4 L Consult Discharge Plan - Plan Referrals: Kolton Baugh MD [Non-Partnered Physician] - (Please make an appointment for follow-up in wound care, approximately one week after patient is to be discha rged) NONE,PCP [Primary Care Provider] - - Attending Attestation I saw evaluated and examined this patient and my medical decision-making was reviewed with the Resident Physician, Osiris Lucio. I agree with the documented findings, disposition and treatment plan as described except to any changes set forth below. We independently had [id number] contact with the patient. Patient doing well today. Swelling in his hands has improved but still present. Will give another dose of Lasix. Continue IV antibiotics. Await infectious disease recommendations and final culture results. Continue growing gram- negative rods. Await placement to skilled rehabilitation once final antibiotic recommendations have been made. <Osiris Lucio - Last Filed: 10/22/18 13:26> Hospitalist Progress Note - Encounter Date of Encounter: 10/22/18 Time of Encounter: 10:32 - Subjective Interval History: Mr. Garcia was seen at bedside this morning. 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 Currently receiving his home regimen of pain medication. He has no additional complaints. Denying fever, chills, shortness of breath, chest pain or abdominal pain. - Exam Vitals: Temp Pulse Resp BP Pulse Ox 97.8 F 63 16 133/71 98 10/22/18 07:21 10/22/18 07:21 10/22/18 07:21 10/22/18 07:21 10/22/18 07:21 Exam: Gen: Vitals noted. No acute distress. Appears comfortable. Eyes: anicteric sclerae, moist conjunctivae; no lid-lag; Pupils equal and reactive to light HENT: Atraumatic; oropharynx clear with moist mucous membranes and no mucosal ulcerations; normal hard and soft palate Neck: Trachea midline; supple, no thyromegaly or lymphadenopathy Cardiac: RRR, no murmur, +S1/S2. No JVD noted. Pulmonary: CTA bilaterally, no wheezes, rales or rhonchi, equal chest expansion Abdomen: soft, nontender, no guarding. No masses or hepatosplenomegaly MSK: ROM intact, edema on both hands; stasis dermatitis of both legs Extremities: no edema, nontender calf Neuro: moves all extremities, no focal deficits. Psych: Appropriate mood and behavior. A&Ox3 - Assessment and Plan (1) Decubitus ulcer of buttock, unstageable Current Visit: Yes Status: Chronic Assessment and Plan: Presented to the ED with history of wounds since last year. Recently his reported that he stays in bed most time. Underwent excision and debridement on 10/18/18 Next disease was consulted currently on vancomycin, cefepime and Flagyl Speciation of wound culture still pending currently gram-negative rods -Continue current antibiotic regimen -Pending wound culture final results -Will require IV antibiotics upon discharge -Will be discharged to rehabilitation facility given currently stays at home and his takes care of him (2) Anemia Current Visit: Yes Status: Acute Assessment and Plan: History of chronic anemia at presentation was noted to be 7.0 which appears at baseline Limited today 7.3 today hemoglobin is 7.3 Currently on xarelto, recommend outpatient follow-up with PCP for risk versus benefit given chronic anemia Continue to monitor CBC (3) Stasis dermatitis of both legs Current Visit: Yes Status: Chronic Assessment and Plan: Chronic stasis Wound care following (4) Atrial fibrillation Current Visit: No Status: Chronic Assessment and Plan: Chronic history of atrial fibrillation. Heart rate is 68, continue Toprol-XL 25 mg (5) Chronic diastolic (congestive) heart failure Current Visit: Yes Status: Acute Assessment and Plan: History of congestive heart failure we will continue home Bumex. Gave one additional dose of 20 mg IV Lasix as his hands continue to appear edematous DVT Prophylaxis: On xarelto - Time Spent with Patient Total time spent is greater than 50% in coordination of care (as documented) at patient's floor/unit and/or counseling patient: Internal Medicine: Result - Labs CBC & Chem 7: 10/22/18 06:09 10/22/18 06:09 Labs: Short CBC 10/22/18 Range/Units 06:09 WBC 4.6 (4.3-11.1) K/mcL Hgb 7.3 L (12.9-16.9) g/dL Hct 23.2 L (37.5-50.1) % Plt Count 176 (140-400) K/mcL Neutrophils # 3.1 (1.6-8.9) K/mcL BMP 10/22/18 06:09 Sodium 139 Potassium 3.4 L Chloride 102 Carbon Dioxide 29 BUN 23 Creatinine 0.91 Glucose 105 Calcium 7.4 L <Stephanie Allred - Last Filed: 10/22/18 13:04> (1) Decubitus ulcer of buttock, unstageable Qualifiers: Laterality: unspecified laterality Qualified Code(s): L89.300 - Pressure ulcer of unspecified buttock, unstageable (2) Anemia Qualifiers: Anemia type: unspecified type Qualified Code(s): D64.9 - Anemia, unspecified (3) Atrial fibrillation Qualifiers: Atrial fibrillation type: chronic Qualified Code(s): I48.2 - Chronic atrial fibrillation (5) Diabetes Qualifiers: Diabetes mellitus type: type 2 Diabetes mellitus 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 computer 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 insulin use: without terminal computer operator use Diabetes mellitus complication status: with kidney complications Diabetes mellitus complication detail: with chronic kidney disease Chronic kidney disease stage: stage 3 (moderate) Qualified Code(s): E11.22 - Type 2 diabetes mellitus with diabetic chronic kidney disease; N18.3 - Chronic kidney disease, stage 3 (moderate) <Osiris Lucio - Last Filed: 10/22/18 13:26> (1) Decubitus ulcer of buttock, unstageable Qualifiers: Laterality: unspecified laterality Qualified Code(s): L89.300 - Pressure ulcer of unspecified buttock, unstageable (2) Anemia Qualifiers: Anemia type: unspecified type Qualified Code(s): D64.9 - Anemia, unspecified (4) Atrial fibrillation Qualifiers: Atrial fibrillation type: chronic Qualified Code(s): I48.2 - Chronic atrial fibrillation
[2018-10-22] MEDS: Bumetanide 1 MG TABLET PO SCH (11:07)
[2018-10-22] MEDS: Cyanocobalamin (B-12) 1,000 MCG TABLET PO SCH (11:07)
[2018-10-22] MEDS: Zinc Sulfate 220 MG CAPSULE PO SCH (11:08)
[2018-10-22] MEDS: metroNIDAZOLE 500 MG TABLET PO SCH ×3 (11:08→20:09)
[2018-10-22] MEDS: Metoprolol XL (24 HR) Succ 25 MG TAB.ER.24H PO SCH (11:08)
[2018-10-22] MEDS: Isosorbide MONOnitrate (24 HR) 30 MG TAB.ER.24H PO SCH (11:08)
[2018-10-22] MEDS ORDERED: Potassium Chloride Elixir 20 MEQ/15 ML UDC PO ONE (11:11)
[2018-10-22] MEDS ORDERED: Furosemide 20 MG/2 ML VIAL IVP ONE (11:20)
[2018-10-22] MEDS: *HR* Rivaroxaban 15 MG TABLET PO SCH (17:02)
[2018-10-23] MEDS: Insulin LISPRO 300 UNITS/3 ML VIAL SQ SCH ×5 (00:03→23:12)
[2018-10-23] MEDS: *HR* Methadone 10 MG TABLET PO SCH ×4 (04:05→23:11)
[2018-10-23 05:54] LABS: Basophils % 0.2 %; Eosinophils # 0.2 K/mcL (0.0-0.6); Eosinophils % 3.6 %; Hematocrit 23.2 % (37.5-50.1); Hemoglobin 7.3 g/dL (12.9-16.9); Immature Granulocytes % 1.3 % (0-4); Lymphocytes % 20.8 %; Mean Corpuscular HGB Conc 31.5 g/dL (31.6-35.5); Mean Corpuscular Hemoglobin 29.6 pg (28.0-33.3); Mean Corpuscular Volume 93.9 fL (83.0-100.0); Mean Platelet Volume 9.1 fL (9.4-12.4); Monocytes # 0.2 K/mcL (0.0-1.3); Monocytes % 4.5 %; Platelet Count 185 K/mcL (140-400); Red Blood Count 2.47 M/mcL (4.19-5.50); Red Cell Distribution Width 16.1 % (11.5-14.5); Segmented Neutrophils % 69.6 %; White Blood Count 4.7 K/mcL (4.3-11.1)
[2018-10-23 06:03] LABS: Neutrophils # 3.3 K/mcL (1.6-8.9)
[2018-10-23 06:07] LABS: BUN/Creatinine Ratio 22 (6-26); Blood Urea Nitrogen 19 mg/dL (8-23); Calcium 7.6 mg/dL (8.6-10.3); Carbon Dioxide 30 mEq/L (23-29); Chloride 100 mEq/L (98-107); Glucose 91 mg/dL (70-105); Osmolality,Calculated 290 (280-300); Potassium 3.6 mEq/L (3.5-5.1); Sodium 139 mEq/L (136-145); eGFR For African Americans > 60 (> 60); eGFR For Non-African Americans > 60 (> 60)
[2018-10-23 06:14] LABS: Platelet Estimate Normal (Normal)
[2018-10-23] MEDS: Cefepime HCl 2,000 MG in 0.9 % Sodium Chloride Mini Bag 100 ML IVPB SCH ×2 (06:48→18:57)
[2018-10-23] MEDS: Ascorbic Acid 500 MG TABLET PO SCH (06:49)
[2018-10-23] MEDS: Cyanocobalamin (B-12) 1,000 MCG TABLET PO SCH (10:27)
[2018-10-23] MEDS: Bumetanide 1 MG TABLET PO SCH (10:27)
[2018-10-23] MEDS: Isosorbide MONOnitrate (24 HR) 30 MG TAB.ER.24H PO SCH (10:27)
[2018-10-23] MEDS: Metoprolol XL (24 HR) Succ 25 MG TAB.ER.24H PO SCH (10:27)
[2018-10-23] MEDS: metroNIDAZOLE 500 MG TABLET PO SCH ×3 (10:27→23:11)
[2018-10-23] MEDS: Zinc Sulfate 220 MG CAPSULE PO SCH (10:27)
--- NOTE | 2018-10-23 10:58 | Infectious Disease Progress No ---
ID Progress Note Date of Encounter: 10/23/18 Time of Encounter: 10:55 - Subjective Subjective: Seen and examined. No acute events noted overnight. Patient states overall he feels better. Complains of pain to the bilateral heels that is burning in nature. Denies fevers, chills, rigors. Denies chest pain, shortness of breath, or cough. Reports some intermittent nausea and had 1 episode of emesis yesterday. Denies abdominal pain. Holm catheter remains patent. Denies pain at the surgical site. Denies oral thrush or skin rashes. - Objective CBC & Chem 7: 10/24/18 05:25 10/24/18 05:25 - Line Documentation Line Documentation: Holm Catheter - Exam Vitals: Temp Pulse Resp BP Pulse Ox 98.2 F 60 18 122/54 94 10/23/18 07:10 10/23/18 07:10 10/23/18 07:10 10/23/18 07:10 10/23/18 07:37 Exam: Head: Atraumatic, normal inspection, normocephalic. Eye: EOMI, PERRLA, no scleral icterus noted. ENT: Mucous membranes moist. No odontogenic infection noted. Neck: Normal inspection, no meningismus. Respiratory: Clear to auscultation. No rales, respiratory distress, rhonchi, or wheezes noted. Cardiovascular: Regular rate and irregular rhythm, S1 and S2 audible. No murmurs, rubs, or gallops. GI: Soft, nondistended, normal bowel sounds. Holm catheter draining clear yellow urine. Extremities:No joint swelling, pedal edema, or tenderness noted. Venous stasis dermatitis noted to the bilateral lower extremities. Bilateral lower extremity dressings clean, dry, and intact. Back: Deferred per patient request. Neurological: Alert, oriented 3, no focal deficits. Psychiatric: normal affect, normal mood. Skin: Dry, intact, warm. Normal color. No rashes. - Assessment and Plan (1) Decubitus ulcer of buttock, unstageable Current Visit: Yes Status: Chronic Location: Left buttock. Etiology: Sedentary lifestyle + urinary and fecal incontinence. Duration: Not entirely clear. The patient's son reported that the ulcer had been there for over a year, but the stated that 3 days prior to admission he was healed. CT of the abdomen and pelvis shows sacral lacunas ulcer in the left buttock with soft tissue gas and swelling in this region. There was no discrete drainable fluid collection although pockets of fluid and gas were noted in this region. The soft tissue gas also extended laterally and superiorly within the soft tissues raising suspicion for early necrotizing fasciitis. Acute care surgery consult. Status post excisional debridement and washout of the sacral ulcer 10/18/[address] Van. No pre-op or intra-op wound cultures were obtained. Previous wound cultures obtained March 2018 were positive for providentia and MSSA. Wound culture obtained post-op positive for scant lock-sensitive P. mirabilis. No osteomyelitis noted on imaging at this point. Currently on vancomycin, cefepime, and flagyl. Qualifiers: Laterality: unspecified laterality Qualified Code(s): L89.300 - Pressure ulcer of unspecified buttock, unstageable SNOMED Code(s): 659810837 (2) Stasis dermatitis of both legs Current Visit: Yes Status: Chronic Location: Bilateral lower extremities. Wound care consulted and following. SNOMED Code(s): 66405880 (3) Weakness Current Visit: No Status: Chronic Likely multifactorial: Infection, physical deconditioning. PT/OT per the primary team recommendations. SNOMED Code(s): 78807433 (4) Bone lesion Current Visit: Yes Status: Acute Diffuse sclerotic lesions noted throughout the visualized skeleton noted on the CT the abdomen and pelvis. Etiology: Unclear. The patient denies any significant history of cancer other than a skin cancer removed several years ago. Recommend further workup, perhaps as an outpatient. Management per the primary team. SNOMED Code(s): 67986984 (5) Hypertension Current Visit: No Status: Chronic Qualifiers: Hypertension type: essential hypertension Qualified Code(s): I10 - Essential (primary) hypertension SNOMED Code(s): 18413324 (6) Diabetes Current Visit: No Status: Chronic Recommend aggressive glucose monitoring and control to promote wound healing and prevent reinfection. Management per the primary team. Qualifiers: Diabetes mellitus type: type 2 Diabetes mellitus custodial insulin use: without moth exterminator use Diabetes mellitus complication status: with kidney complications Diabetes mellitus complication detail: with chronic kidney disease Chronic kidney disease stage: stage 3 (moderate) Qualified Code(s): E11.22 - Type 2 diabetes mellitus with diabetic chronic kidney disease; N18.3 - Chronic kidney disease, stage 3 (moderate) SNOMED Code(s): 65941858 (7) CKD (chronic kidney disease) stage 3, GFR 30-59 ml/min Current Visit: No Status: Chronic Monitor renal function closely. Dose adjust medications and avoid nephrotoxins as able. SNOMED Code(s): 788515618 (8) Atrial fibrillation Current Visit: Yes Status: Chronic Qualifiers: Atrial fibrillation type: chronic Qualified Code(s): I48.2 - Chronic atrial fibrillation SNOMED Code(s): 22928969 - Recommendations Recommendations: Check ESR and CRP. Await blood cultures to finalize. Wound care per the acute care surgery team recommendations. Aggressive turning and offloading per nursing protocol. --> patient refusing. Continue vancomycin IV. Pharmacy to dose. Goal trough approximately 15. Continue cefepime 2 grams IV Q12H. Continue flagyl 500mg PO TID. Duration of treatment depends on the clinical picture, but likely 2-4 weeks. Monitor renal function for drug toxicity and is just antibiotics. Consult VAT team for PICC line placement prior to discharge. coordinator cardiopulmonary services to assist with discharge planning. Will need weekly CBC, BUN/Cr, ESR, CRP, Vanc trough. Will need weekly PICC care per protocol. Follow up with ID 11/06/18 at 1500. Consult Discharge Plan - Plan Referrals: Kolton Baugh MD [Non-Partnered Physician] - (Please make an appointment for follow-up in wound care, approximately one week after patient is to be discharged) NONE,PCP [Primary Care Provider] - Nadege Jarquin, WORKFORCE CONSULTANT [Advanced Practice Nurse] - 11/06/18 3:00 pm Prescriptions: metroNIDAZOLE [Flagyl] 500 mg PO TID #42 tablet Cefepime HCl [Maxipime] 2,000 mg IVPB Q12HR #30 vial Methadone 20 mg PO Q8HR 4 Days #20 tablet OxyCODONE/APAP 10/325 [Percocet 10/325 MG] 1 tab PO Q8HR PRN 5 Days #14 tablet PRN Reason: Pain Vancomycin HCl in Dextrose 5 % [Vancomycin 750 mg/150 ml Bag] 750 mg IV DAILY #15 froz.piggy - Attending Attestation I have personally performed a face to face evaluation on this patient. I have reviewed and agree with the care plan. History and Exam by me shows: Assessment and plan: 1.Acute was also of the buttock unstageable status post I&D by surgery 10/18/2018. No Intra-Op cultures sent. Discussed with nursing staff and asked him to repeat cultures she said she will do when she does the wound care. Previously cultures were positive for MSSA and providenica stuartii 2.Venous stasis dermatitis bilateral legs 3.Weakness with failure to thrive 4.Bone lesions 5.Diabetes mellitus 6.Bedridden Recommendations: Get swab culture of the wound. Await blood cultures to finalize. Wound care per the acute care surgery team recommendations. Aggressive turning and offloading per nursing protocol. Continue vancomycin IV. Pharmacy to dose. Goal trough approximately 15. Discontinue clindamycin and zosyn. Start cefepime 2 grams IV Q12H. Start flagyl 500mg PO TID. Duration of treatment depends on the clinical picture. Monitor renal function for drug toxicity and is just antibiotics.
[2018-10-23] MEDS: *HR* OxyCODONE/APAP 10/325 TABLET PO PRN (12:19)
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
[2018-10-23] MEDS ORDERED: Lidocaine -MPF 1% 5 ML AMPUL INFILT ONE (13:51)
--- NOTE | 2018-10-23 14:53 | Physician Discharge Referral ---
ExtendedCare Referral Info Transfer To: [facility] Provider in Charge after Transfer: PCP - Diagnosis (1) Decubitus ulcer of buttock, unstageable Priority: Primary Status: Chronic (2) Stasis dermatitis of both legs Priority: Secondary Status: Chronic (3) Anemia Priority: Secondary Status: Acute (4) Atrial fibrillation Priority: Secondary Status: Chronic (5) Chronic diastolic (congestive) heart failure Priority: Secondary Status: Acute Prognosis: Fair Aware of Diagnosis: Patient Aware of Prognosis: Patient - Transfer Medications Prescriptions: metroNIDAZOLE [Flagyl] 500 mg PO TID #42 tablet Cefepime HCl [Maxipime] 2,000 mg IVPB Q12HR #30 vial Methadone 20 mg PO Q8HR 4 Days #20 tablet OxyCODONE/APAP 10/325 [Percocet 10/325 MG] 1 tab PO Q8HR PRN 5 Days #14 tablet PRN Reason: Pain Vancomycin HCl in Dextrose 5 % [Vancomycin 750 mg/150 ml Bag] 750 mg IV DAILY #15 froz.piggy Home Medications: Metoprolol XL (24 HR) Succ [Toprol Xl] 25 mg PO DAILY 04/30/15 [History] Doxazosin [Cardura] 4 mg PO HS 05/04/18 [History] Acetaminophen [Tylenol] 650 mg PO Q6HR PRN tablet 05/07/18 [Rx] Ascorbic Acid [Vitamin C] 500 mg PO 0630 tablet 05/07/18 [Rx] Cyanocobalamin (B-12) [Vitamin B12] 1,000 mcg PO DAILY tablet 05/07/18 [Rx] Ferrous Sulfate 325 mg PO 0630 tablet 05/07/18 [Rx] Zinc Sulfate 220 mg PO DAILY capsule 05/15/18 [Rx] Bumetanide [Bumex] 2 mg PO DAILY 10/17/18 [History] Isosorbide MONOnitrate (24 HR) [Imdur] 30 mg PO DAILY 10/17/18 [History] Cefepime HCl [Maxipime] 2,000 mg IVPB Q12HR #30 vial 10/23/18 [Rx] Collagenase Oint [Santyl] 1 appl TP DAILY tube 10/23/18 [Rx] Methadone 20 mg PO Q8HR 4 Days #20 tablet 10/23/18 [Rx] OxyCODONE/APAP 10/325 [Percocet 10/325 MG] 1 tab PO Q8HR PRN 5 Days #14 tablet 10/23/18 [Rx] Rivaroxaban [Xarelto] 20 mg PO 1700 tablet 10/23/18 [Rx] Sodium Hypochlorite 0.25% [Dakin's (Half-Strength 0.25%)] 1 appl TP DAILY bottle 10/23/18 [Rx] Vancomycin HCl in Dextrose 5 % [Vancomycin 750 mg/150 ml Bag] 750 mg IV DAILY #15 froz.piggy 10/23/18 [Rx] metroNIDAZOLE [Flagyl] 500 mg PO TID #42 tablet 10/23/18 [Rx] Allergies/Adverse Reactions: Allergy/AdvReac Type Severity Reaction Status Date / Time No Known Allergies Allergy Verified 06/14/18 11:57 - Respiratory Orders None Smoking Cessation: Smoking cessation has been advised. For more information, call the [place] Tobacco Quit Line at 8-002-VGOB-NOW. - Lab Orders Lab Orders: Other (include drug levels w/frequency) (weekly CBC, BMP, ESR, CRP while on antibiotics) - Ancillary Orders May use pressure relief devices daily prn - Advance Directives Code Status: Full Code - Rehabiliation Orders Rehab Potential: Fair Rehab Orders: Evaluation for Physical Therapy, Evaluation for Occupational Therapy - Treatments Skin tear care topically daily PRN per policy - Diet Orders No Concentrated Sweets CERTIFICATION: I certify that the transfer of the above named patient to an Extended Care Facility is necessary for the continuing treatment of the diagnosis listed. The above information is true and accurate reflection of patient's current condition. Confidential - Redisclosure prohibited without a patient's written consent.
--- NOTE | 2018-10-23 15:38 | Internal Med Progress Note ---
<CorneliusChrissy Roberta - Last Filed: 10/23/18 15:35> Hospitalist Progress Note - Encounter Date of Encounter: 10/23/18 Time of Encounter: 09:58 - Subjective Interval History: Patient feeling improved since admission. No acute events overnight. Complains of a burning sensation in the LE bilaterally. States that he hasn't been able to eat much. Admits to 1 episode of vomiting yesterday but none today. Pain is well controlled on current medication regiment. Denies CP, SOB, fever, chills, abdominal pain. - Exam Vitals: Temp Pulse Resp BP Pulse Ox 98.1 F 76 16 123/76 95 10/23/18 11:11 10/23/18 11:11 10/23/18 11:11 10/23/18 11:11 10/23/18 11:11 Exam: Gen: Vitals noted. No acute distress. Appears comfortable. Eyes: anicteric sclerae, moist conjunctivae HENT: Atraumatic; oropharynx clear with moist mucous membranes and no mucosal ulcerations Neck: Trachea midline Cardiac: RRR, no murmur, +S1/S2. No JVD noted. Pulmonary: CTA bilaterally, no wheezes, rales or rhonchi, equal chest expansion Abdomen: soft, nontender, no guarding. No masses or hepatosplenomegaly MSK: stasis dermatitis of both legs Extremities: no edema, nontender calf Neuro: no focal deficits. Psych: A&Ox3 (person, place, year, president) - Assessment and Plan (1) Decubitus ulcer of buttock, unstageable Current Visit: Yes Status: Chronic Assessment and Plan: Status post excision and debridement on 10/18/18 CT abd/pelvis Postop wound culture positive for Proteus Continue IV vanc day 6, IV cefepime and Flagyl day 5 per ID recommendations Continue wound care Continue pain management (2) Bone lesion Current Visit: Yes Status: Acute Assessment and Plan: CT abd/pelvis 10/17/18 Multifocal sclerotic lesions noted throughout the visualized skeleton compatible with metastatic disease until proven otherwise CXR 10/23/18 Extensive osteoblastic metastases. Small right pleural effusion. Left upper extremity PICC line in place tip in SVC. No known history of cancer Oncology consulted (3) Stasis dermatitis of both legs Current Visit: Yes Status: Chronic Assessment and Plan: Chronic, stable Wound care following (4) Anemia Current Visit: Yes Status: Chronic Assessment and Plan: Hemoglobin stable at 7.3 On serial toe, consider PCP follow-up for further discussion We will continue to monitor on morning labs (5) Atrial fibrillation Current Visit: Yes Status: Chronic Assessment and Plan: HR 6397 in past 24 hours, stable Continue home meds (6) Chronic diastolic (congestive) heart failure Current Visit: Yes Status: Acute Assessment and Plan: Without current exacerbation Continue home meds DVT Prophylaxis: On xarelto - Time Spent with Patient Total time spent is greater than 50% in coordination of care (as documented) at patient's floor/unit and/or counseling patient: Greater than 35 minutes Plan of Care Discussed with: patient Internal Medicine: Result - Labs CBC & Chem 7: 10/23/18 05:35 10/23/18 05:35 Labs: Short CBC 10/23/18 Range/Units 05:35 WBC 4.7 (4.3-11.1) K/mcL Hgb 7.3 L (12.9-16.9) g/dL Hct 23.2 L (37.5-50.1) % Plt Count 185 (140-400) K/mcL Neutrophils # 3.3 (1.6-8.9) K/mcL BMP 10/23/18 05:35 Sodium 139 Potassium 3.6 Chloride 100 Carbon Dioxide 30 H BUN 19 Creatinine 0.85 Glucose 91 Calcium 7.6 L - Impressions Impressions Chest X-Ray 10/23/18 14:38 IMPRESSION: Left upper extremity PICC line in place tip in the SVC. Extensive osteoblastic metastases. Small right pleural effusion. D/ / 10/23/2018 15:02:16 Gonzalo Euceda MD / mariana Interpreting Provider: Gonzalo Euceda MD Consult Discharge Plan - Plan Referrals: Kolton Baugh MD [Non-Partnered Physician] - (Please make an appointment for follow-up in wound care, approximately one week after patient is to be discharged) Nadege Jarquin, COMPUTER NUMERICAL CONTROL GRINDER [Advanced Practice Nurse] - 11/06/18 3:00 pm NONE,PCP [Primary Care Provider] - Prescriptions: metroNIDAZOLE [Flagyl] 500 mg PO TID #42 tablet Cefepime HCl [Maxipime] 2,000 mg IVPB Q12HR #30 vial Methadone 20 mg PO Q8HR 4 Days #20 tablet OxyCODONE/APAP 10/325 [Percocet 10/325 MG] 1 tab PO Q8HR PRN 5 Days #14 tablet PRN Reason: Pain Vancomycin HCl in Dextrose 5 % [Vancomycin 750 mg/150 ml Bag] 750 mg IV DAILY #15 fromerna <Stephanie Allred - Last Filed: 10/23/18 16:54> Hospitalist Progress Note - Encounter Date of Encounter: 10/23/18 Time of Encounter: 09:20 - Exam Vitals: Temp Pulse Resp BP Pulse Ox 98.6 F 68 18 102/65 96 10/23/18 16:30 10/23/18 16:30 10/23/18 16:30 10/23/18 16:30 10/23/18 16:30 - Assessment and Plan (1) Decubitus ulcer of buttock, unstageable Current Visit: Yes Status: Chronic (2) Anemia Current Visit: Yes Status: Chronic (3) Atrial fibrillation Current Visit: Yes Status: Chronic (4) Stasis dermatitis of both legs Current Visit: Yes Status: Chronic (5) Diabetes Current Visit: No Status: Chronic (6) DVT prophylaxis Current Visit: Yes Status: Acute - Time Spent with Patient Total time spent is greater than 50% in coordination of care (as documented) at patient's floor/unit and/or counseling patient: Internal Medicine: Result - Labs CBC & Chem 7: 10/23/18 05:35 10/23/18 05:35 Labs: Short CBC 10/23/18 Range/Units 05:35 WBC 4.7 (4.3-11.1) K/mcL Hgb 7.3 L (12.9-16.9) g/dL Hct 23.2 L (37.5-50.1) % Plt Count 185 (140-400) K/mcL Neutrophils # 3.3 (1.6-8.9) K/mcL BMP 10/23/18 05:35 Sodium 139 Potassium 3.6 Chloride 100 Carbon Dioxide 30 H BUN 19 Creatinine 0.85 Glucose 91 Calcium 7.6 L - Impressions Impressions Chest X-Ray 10/23/18 14:38 IMPRESSION: Left upper extremity PICC line in place tip in the SVC. Extensive osteoblastic metastases. Small right pleural effusion. D/ / 10/23/2018 15:02:16 Gonzalo Euceda MD / mariana Interpreting Provider: Gonzalo Euceda MD - Attending Attestation I saw evaluated and examined this patient and my medical decision-making was reviewed with the Resident Physician, Chrissy Shields. I agree with the documented findings, disposition and treatment plan as described except to any changes set forth below. We independently had [id number] contact with the patient. Patient continues to improve clinically. Infectious disease evaluated patient and recommend continued intravenous antibiotics. Patient had PICC line placed today. Chest x-ray done shows osteoblastic metastatic lesions. These findings were also noted on CT scan initially done here. We will consult oncology to review this further and complete any workup that is needed at this time. No clear source. Patient denies any complaints with regards to dysuria or hematuria. He does have a Holm catheter in place. Initial urinalysis did show microscopic hematuria. On exam, upper extremity swelling has mostly subsided. Continue oral Bumex. <Chrissy Shields - Last Filed: 10/23/18 15:35> (1) Decubitus ulcer of buttock, unstageable Qualifiers: Laterality: unspecified laterality Qualified Code(s): L89.300 - Pressure ulcer of unspecified buttock, unstageable (4) Anemia Qualifiers: Anemia type: unspecified type Qualified Code(s): D64.9 - Anemia, unspecified (5) Atrial fibrillation Qualifiers: Atrial fibrillation type: chronic Qualified Code(s): I48.2 - Chronic atrial fibrillation <Stephanie Allred - Last Filed: 10/23/18 16:54> (1) Decubitus ulcer of buttock, unstageable Qualifiers: Laterality: unspecified laterality Qualified Code(s): L89.300 - Pressure ulcer of unspecified buttock, unstageable (2) Anemia Qualifiers: Anemia type: unspecified type Qualified Code(s): D64.9 - Anemia, unspecified (3) Atrial fibrillation Qualifiers: Atrial fibrillation type: chronic Qualified Code(s): I48.2 - Chronic atrial fibrillation (5) Diabetes Qualifiers: Diabetes mellitus type: type 2 Diabetes mellitus fpc insulin use: without terminal manager use Diabetes mellitus complication status: with kidney complications Diabetes mellitus complication detail: with chronic kidney disease Chronic kidney disease stage: stage 3 (moderate) Qualified Code(s): E11.22 - Type 2 diabetes mellitus with diabetic chronic kidney disease; N18.3 - Chronic kidney disease, stage 3 (moderate)
[2018-10-23] MEDS: *HR* Rivaroxaban 10 MG TABLET PO SCH (17:44)
[2018-10-24] MEDS: Cefepime HCl 2,000 MG in 0.9 % Sodium Chloride Mini Bag 100 ML IVPB SCH ×2 (05:22→18:17)
[2018-10-24] MEDS: Ascorbic Acid 500 MG TABLET PO SCH (05:32)
[2018-10-24] MEDS: *HR* OxyCODONE/APAP 10/325 TABLET PO PRN ×3 (05:36→22:22)
[2018-10-24 06:00] LABS: Basophils % 0.2 %; Eosinophils # 0.2 K/mcL (0.0-0.6); Hematocrit 22.3 % (37.5-50.1); Immature Granulocytes % 0.8 % (0-4); Lymphocytes # 1.1 K/mcL (0.6-4.6); Lymphocytes % 23.7 %; Mean Corpuscular HGB Conc 31.4 g/dL (31.6-35.5); Mean Corpuscular Hemoglobin 29.7 pg (28.0-33.3); Mean Corpuscular Volume 94.5 fL (83.0-100.0); Mean Platelet Volume 9.1 fL (9.4-12.4); Monocytes # 0.3 K/mcL (0.0-1.3); Monocytes % 5.5 %; Neutrophils # 3.1 K/mcL (1.6-8.9); Platelet Count 183 K/mcL (140-400); Red Blood Count 2.36 M/mcL (4.19-5.50); Red Cell Distribution Width 16.6 % (11.5-14.5); Segmented Neutrophils % 65.8 %; White Blood Count 4.7 K/mcL (4.3-11.1)
[2018-10-24 06:08] LABS: INR 2.1; Prothrombin Time 24.1 Seconds (9.4-12.1)
[2018-10-24 06:20] LABS: Alanine Aminotransferase 7 Units/L (7-52); Albumin 2.3 g/dL (3.5-5.7); Albumin/Globulin Ratio 0.8 (1.1-2.2); Alkaline Phosphatase 299 Units/L (34-104); Aspartate Amino Transferase 14 Units/L (13-39); BUN/Creatinine Ratio 31 (6-26); Bilirubin,Direct 0.1 mg/dL (0.0-0.2); Bilirubin,Indirect 0.4 mg/dL (0.0-1.2); Bilirubin,Total 0.5 mg/dL (0.3-1.0); Blood Urea Nitrogen 25 mg/dL (8-23); Calcium 7.4 mg/dL (8.6-10.3); Carbon Dioxide 29 mEq/L (23-29); Chloride 101 mEq/L (98-107); Glucose 80 mg/dL (70-105); Osmolality,Calculated 289 (280-300); Potassium 3.6 mEq/L (3.5-5.1); Sodium 138 mEq/L (136-145); Total Protein 5.3 g/dL (6.4-8.9); eGFR For African Americans > 60 (> 60); eGFR For Non-African Americans > 60 (> 60)
[2018-10-24] MEDS: Insulin LISPRO 300 UNITS/3 ML VIAL SQ SCH ×4 (08:18→22:28)
[2018-10-24] MEDS: metroNIDAZOLE 500 MG TABLET PO SCH ×3 (08:30→22:21)
[2018-10-24] MEDS: Zinc Sulfate 220 MG CAPSULE PO SCH (08:30)
[2018-10-24] MEDS: *HR* Methadone 10 MG TABLET PO SCH ×2 (08:31→17:06)
[2018-10-24] MEDS: Cyanocobalamin (B-12) 1,000 MCG TABLET PO SCH (08:31)
[2018-10-24] MEDS: Metoprolol XL (24 HR) Succ 25 MG TAB.ER.24H PO SCH (08:31)
[2018-10-24] MEDS: Bumetanide 1 MG TABLET PO SCH (08:31)
[2018-10-24] MEDS: Isosorbide MONOnitrate (24 HR) 30 MG TAB.ER.24H PO SCH (08:31)
[2018-10-24] MEDS: Acetaminophen 325 MG TABLET PO PRN (11:55)
--- NOTE | 2018-10-24 13:09 | Infectious Disease Progress No ---
ID Progress Note Date of Encounter: 10/24/18 Time of Encounter: 11:40 - Subjective Subjective: Seen and examined. No acute events noted overnight. Patient states overall he feels better. Complains of pain to the bilateral heels that is burning in nature. Denies fevers, chills, rigors. Denies chest pain, shortness of breath, or cough. Reports some intermittent nausea. No vomiting. Denies abdominal pain. Holm catheter remains patent. Denies pain at the surgical site. Denies oral thrush or skin rashes. Complains of chronic bilateral shoulder pain. Pending oncology evaluation. - Objective CBC & Chem 7: 10/24/18 05:25 10/24/18 05:25 - Line Documentation Line Documentation: Holm Catheter - Exam Vitals: Temp Pulse Resp BP Pulse Ox 98.2 F 62 15 115/68 96 10/24/18 10:56 10/24/18 10:56 10/24/18 10:56 10/24/18 10:56 10/24/18 10:56 Exam: Head: Atraumatic, normal inspection, normocephalic. Eye: EOMI, PERRLA, no scleral icterus noted. ENT: Mucous membranes moist. No odontogenic infection noted. Neck: Normal inspection, no meningismus. Respiratory: Clear to auscultation. No rales, respiratory distress, rhonchi, or wheezes noted. Cardiovascular: Regular rate and irregular rhythm, S1 and S2 audible. No murmurs, rubs, or gallops. GI: Soft, nondistended, normal bowel sounds. Holm catheter draining clear yellow urine. Extremities:No joint swelling, pedal edema, or tenderness noted. Venous stasis dermatitis noted to the bilateral lower extremities. Bilateral lower extremity dressings clean, dry, and intact. Back: Deferred per patient request. Neurological: Alert, oriented 3, no focal deficits. Psychiatric: normal affect, normal mood. Skin: Dry, intact, warm. Normal color. No rashes. - Assessment and Plan (1) Decubitus ulcer of buttock, unstageable Current Visit: Yes Status: Chronic Location: Left buttock. Etiology: Sedentary lifestyle + urinary and fecal incontinence. Duration: Not entirely clear. The patient's son reported that the ulcer had been there for over a year, but the stated that 3 days prior to admission he was healed. CT of the abdomen and pelvis shows sacral lacunas ulcer in the left buttock with soft tissue gas and swelling in this region. There was no discrete drainable fluid collection although pockets of fluid and gas were noted in this region. The soft tissue gas also extended laterally and superiorly within the soft tissues raising suspicion for early necrotizing fasciitis. Acute care surgery consult. Status post excisional debridement and washout of the sacral ulcer 10/18/[address] Van. No pre-op or intra-op wound cultures were obtained. Previous wound cultures obtained March 2018 were positive for providentia and MSSA. Wound culture obtained post-op positive for scant lock-sensitive P. mirabilis. No osteomyelitis noted on imaging at this point. Currently on vancomycin, cefepime, and flagyl. Qualifiers: Laterality: unspecified laterality Qualified Code(s): L89.300 - Pressure ulcer of unspecified buttock, unstageable SNOMED Code(s): 844906219 (2) Stasis dermatitis of both legs Current Visit: Yes Status: Chronic Location: Bilateral lower extremities. Wound care consulted and following. SNOMED Code(s): 93429541 (3) Weakness Current Visit: No Status: Chronic Likely multifactorial: Infection, physical deconditioning. PT/OT per the primary team recommendations. SNOMED Code(s): 12142514 (4) Bone lesion Current Visit: Yes Status: Acute Diffuse sclerotic lesions noted throughout the visualized skeleton noted on the CT the abdomen and pelvis. Etiology: Unclear. The patient denies any significant history of cancer other than a skin cancer removed several years ago. Hem/Onc consulted. Management per the primary team. SNOMED Code(s): 04422407 (5) Hypertension Current Visit: No Status: Chronic Qualifiers: Hypertension type: essential hypertension Qualified Code(s): I10 - Essential (primary) hypertension SNOMED Code(s): 85583158 (6) Diabetes Current Visit: No Status: Chronic Recommend aggressive glucose monitoring and control to promote wound healing and prevent reinfection. Management per the primary team. Qualifiers: Diabetes mellitus type: type 2 Diabetes mellitus jail insulin use: without marine oil terminal superintendent use Diabetes mellitus complication status: with kidney complications Diabetes mellitus complication detail: with chronic kidney disease Chronic kidney disease stage: stage 3 (moderate) Qualified Code(s): E11.22 - Type 2 diabetes mellitus with diabetic chronic kidney disease; N18.3 - Chronic kidney disease, stage 3 (moderate) SNOMED Code(s): 96163296 (7) CKD (chronic kidney disease) stage 3, GFR 30-59 ml/min Current Visit: No Status: Chronic Monitor renal function closely. Dose adjust medications and avoid nephrotoxins as able. SNOMED Code(s): 662115830 (8) Atrial fibrillation Current Visit: Yes Status: Chronic Qualifiers: Atrial fibrillation type: chronic Qualified Code(s): I48.2 - Chronic atrial fibrillation SNOMED Code(s): 64255133 - Recommendations Recommendations: Wound care per the acute care surgery team recommendations. Aggressive turning and offloading per nursing protocol. --> patient refusing. Continue vancomycin IV. Pharmacy to dose. Goal trough approximately 15. Continue cefepime 2 grams IV Q12H. Continue flagyl 500mg PO TID. Duration of treatment depends on the clinical picture, but likely 2-4 weeks. Monitor renal function for drug toxicity and is just antibiotics. Consult VAT team for PICC line placement prior to discharge. director of social services to assist with discharge planning. Will need weekly CBC, BUN/Cr, ESR, CRP, Vanc trough. Will need weekly PICC care per protocol. Follow up with ID 11/06/18 at 1500. Consult Discharge Plan - Plan Referrals: Kolton Baugh MD [Non-Partnered Physician] - (Please make an appointment for follow-up in wound care, approximately one week after patient is to be discharged) Nadege Jarquin POWER CHISEL OPERATOR [Advanced Practice Nurse] - 11/06/18 3:00 pm NONE,PCP [Primary Care Provider] - Prescriptions: metroNIDAZOLE [Flagyl] 500 mg PO TID #42 tablet Cefepime HCl [Maxipime] 2,000 mg IVPB Q12HR #30 vial Methadone 20 mg PO Q8HR 4 Days #20 tablet OxyCODONE/APAP 10/325 [Percocet 10/325 MG] 1 tab PO Q8HR PRN 5 Days #14 tablet PRN Reason: Pain Vancomycin HCl in Dextrose 5 % [Vancomycin 750 mg/150 ml Bag] 750 mg IV DAILY #15 [email or web address] - Attending Attestation I have personally performed a face to face evaluation on this patient. I have reviewed and agree with the care plan. History and Exam by me shows: Assessment and plan: 1.Acute was also of the buttock unstageable status post I&D by surgery 10/18/2018. No Intra-Op cultures sent. Discussed with nursing staff and asked him to repeat cultures she said she will do when she does the wound care. Previously cultures were positive for MSSA and providenica stuartii 2.Venous stasis dermatitis bilateral legs 3.Weakness with failure to thrive 4.Bone lesions 5.Diabetes mellitus 6.Bedridden 7.Bone lesions with mets everywhere likely source prostate? Recommendations: Wound care per the acute care surgery team recommendations. Aggressive turning and offloading per nursing protocol. --> patient refusing. Continue vancomycin IV. Pharmacy to dose. Goal trough approximately 15. Continue cefepime 2 grams IV Q12H. Continue flagyl 500mg PO TID. Duration of treatment depends on the clinical picture, but likely 2-4 weeks. Monitor renal function for drug toxicity and is just antibiotics. Consult VAT team for PICC line placement prior to discharge. director of social services to assist with discharge planning. Will need weekly CBC, BUN/Cr, ESR, CRP, Vanc trough. Will need weekly PICC care per protocol. Follow up with ID 11/06/18 at 1500.
--- NOTE | 2018-10-24 15:00 | Internal Med Progress Note ---
<Tien Collins - Last Filed: 10/24/18 14:58> Hospitalist Progress Note - Encounter Date of Encounter: 10/24/18 Time of Encounter: 10:00 - Subjective Interval History: Patient seen and examined resting comfortably in bed. Patient reports feeling improved today. PSA was elevated at 267. Awaiting oncology consultation. - Exam Vitals: Temp Pulse Resp BP Pulse Ox 98.2 F 62 15 115/68 96 10/24/18 10:56 10/24/18 10:56 10/24/18 10:56 10/24/18 10:56 10/24/18 10:56 Exam: Gen: No acute distress. Appears comfortable. Eyes: anicteric sclerae, moist conjunctivae HENT: Atraumatic; oropharynx clear with moist mucous membranes and no mucosal ul cerations Neck: Trachea midline, supple Cardiac: RRR, no murmur, +S1/S2. No JVD noted. Pulmonary: CTA bilaterally, no wheezes, rales or rhonchi, equal chest expansion Abdomen: soft, nontender, no guarding. No masses or hepatosplenomegaly MSK: stasis dermatitis of both legs Extremities: no edema, nontender calf, dressing in place over bilateral ankles Neuro: no focal deficits. Psych: A&Ox3 (person, place, year, president) - Assessment and Plan (1) Decubitus ulcer of buttock, unstageable Current Visit: Yes Status: Chronic Assessment and Plan: Left buttock toxic decubitus ulcer due to sedentary lifestyle and urinary/fecal incontinence CT of the abdomen and pelvis shows sacral lacunas ulcer in the left buttock with soft tissue gas and swelling in this region. There was no discrete drainable fluid collection although pockets of fluid and gas were noted in this region. The soft tissue gas also extended laterally and superiorly within the soft tissues raising suspicion for early necrotizing fasciitis. Excisional debridement and washout of the sacral ulcer 10/18/[address] Van. No pre-op or intra-op wound cultures were obtained. Previous wound cultures obtained March 2018 were positive for providentia and MSSA. Wound culture obtained post-op positive for scant lock-sensitive P. mirabilis. Currently on vancomycin, cefepime, and flagyl per ID recommendations. He will co mplete at least a 14 day course and will follow up as outpatient with infectious disease for further management and recommendations. He will need his basic panel, CBC and ESR/CRP monitored while he is on IV antibiotics. Anticipate discharge to skilled rehabilitation. (2) Stasis dermatitis of both legs Current Visit: Yes Status: Chronic Assessment and Plan: Lower extremity discoloration, chronic; wound care following. (3) Diabetes Current Visit: No Status: Chronic Assessment and Plan: Continue Low dose insulin sliding scale as needed ADA diet (4) Atrial fibrillation Current Visit: Yes Status: Chronic Assessment and Plan: Controlled. Continue Xarelto, Toprol (5) Anemia Current Visit: Yes Status: Chronic Assessment and Plan: Likely secondary to chronic disease, patient's baseline hemoglobin is 7-8. Patient denies dark stools, bloody stools and other sources of bleeding. He has never had a colonoscopy. Outpatient follow-up. (6) DVT prophylaxis Current Visit: Yes Status: Acute Assessment and Plan: Xarelto. (7) Bone lesion Current Visit: Yes Status: Acute Assessment and Plan: CT abdomen pelvis revealed Diffuse sclerotic lesions are noted throughout the visualized skeleton compatible with metastatic disease until proven otherwise. PSA is elevated. Awaiting oncology evaluation. - Time Spent with Patient Total time spent is greater than 50% in coordination of care (as documented) at patient's floor/unit and/or counseling patient: Internal Medicine: Result - Labs CBC & Chem 7: 10/24/18 05:25 10/24/18 05:25 Labs: Short CBC 10/24/18 Range/Units 05:25 WBC 4.7 (4.3-11.1) K/mcL Hgb 7.0 L (12.9-16.9) g/dL Hct 22.3 L (37.5-50.1) % Plt Count 183 (140-400) K/mcL Neutrophils # 3.1 (1.6-8.9) K/mcL BMP 10/24/18 05:25 Sodium 138 Potassium 3.6 Chloride 101 Carbon Dioxide 29 BUN 25 H Creatinine 0.80 Glucose 80 Calcium 7.4 L Liver Function 10/24/18 Range/Units 05:25 Total Bilirubin 0.5 (0.3-1.0) mg/dL Direct Bilirubin 0.1 (0.0-0.2) mg/dL AST 14 (13-39) Units/L ALT 7 (7-52) Units/L Alkaline Phosphatase 299 H (34-104) Units/L Albumin 2.3 L (3.5-5.7) g/dL - ABG Interpretation ABG results: PT/INR, D-dimer PT 24.1 Seconds (9.4-12.1) H D 10/24/18 05:25 - Impressions Impressions Chest X-Ray 10/23/18 14:38 IMPRESSION: Left upper extremity PICC line in place tip in the SVC. Extensive osteoblastic metastases. Small right pleural effusion. D/ / 10/23/2018 15:02:16 Gonzalo Euceda MD / mariana Interpreting Provider: Gonzalo Euceda MD Consult Discharge Plan - Plan Referrals: Kolton Baugh MD [Non-Partnered Physician] - (Please make an appointment for follow-up in wound care, approximately one week after patient is to be discharged) Nadege Jarquin, AD WRITER [Advanced Practice Nurse] - 11/06/18 3:00 pm NONE,PCP [Primary Care Provider] - Prescriptions: metroNIDAZOLE [Flagyl] 500 mg PO TID #42 tablet Cefepime HCl [Maxipime] 2,000 mg IVPB Q12HR #30 vial Methadone 20 mg PO Q8HR 4 Days #20 tablet OxyCODONE/APAP 10/325 [Percocet 10/325 MG] 1 tab PO Q8HR PRN 5 Days #14 tablet PRN Reason: Pain Vancomycin HCl in Dextrose 5 % [Vancomycin 750 mg/150 ml Bag] 750 mg IV DAILY #15 raymond <Pura Desir - Last Filed: 10/24/18 18:41> Hospitalist Progress Note - Encounter Date of Encounter: 10/24/18 - Exam Vitals: Temp Pulse Resp BP Pulse Ox 98.4 F 88 15 113/61 97 10/24/18 15:39 10/24/18 15:39 10/24/18 15:39 10/24/18 15:39 10/24/18 15:39 - Assessment and Plan (1) Anemia Current Visit: Yes Status: Chronic (2) Atrial fibrillation Current Visit: Yes Status: Chronic (3) Stasis dermatitis of both legs Current Visit: Yes Status: Chronic (4) Diabetes Current Visit: No Status: Chronic (5) Decubitus ulcer of buttock, unstageable Current Visit: Yes Status: Chronic (6) DVT prophylaxis Current Visit: Yes Status: Acute (7) Bone lesion Current Visit: Yes Status: Acute - Time Spent with Patient Total time spent is greater than 50% in coordination of care (as documented) at patient's floor/unit and/or counseling patient: Internal Medicine: Result - Labs CBC & Chem 7: 10/24/18 05:25 10/24/18 05:25 Labs: Short CBC 10/24/18 Range/Units 05:25 WBC 4.7 (4.3-11.1) K/mcL Hgb 7.0 L (12.9-16.9) g/dL Hct 22.3 L (37.5-50.1) % Plt Count 183 (140-400) K/mcL Neutrophils # 3.1 (1.6-8.9) K/mcL BMP 10/24/18 05:25 Sodium 138 Potassium 3.6 Chloride 101 Carbon Dioxide 29 BUN 25 H Creatinine 0.80 Glucose 80 Calcium 7.4 L Liver Function 10/24/18 Range/Units 05:25 Total Bilirubin 0.5 (0.3-1.0) mg/dL Direct Bilirubin 0.1 (0.0-0.2) mg/dL AST 14 (13-39) Units/L ALT 7 (7-52) Units/L Alkaline Phosphatase 299 H (34-104) Units/L Albumin 2.3 L (3.5-5.7) g/dL - ABG Interpretation ABG results: PT/INR, D-dimer PT 24.1 Seconds (9.4-12.1) H D 10/24/18 05:25 - Attending Attestation I examined this patient and my medical decision-making was reviewed with the Resident Physician. I agree with the documented findings, disposition and treatment plan as described except to the extent set forth below. <Tien Collins - Last Filed: 10/24/18 14:58> (1) Decubitus ulcer of buttock, unstageable Qualifiers: Laterality: unspecified laterality Qualified Code(s): L89.300 - Pressure ulcer of unspecified buttock, unstageable (3) Diabetes Qualifiers: Diabetes mellitus type: type 2 Diabetes mellitus moth exterminator insulin use: without moth exterminator use Diabetes mellitus complication status: with kidney complications Diabetes mellitus complication detail: with chronic kidney disease Chronic kidney disease stage: stage 3 (moderate) Qualified Code(s): E11.22 - Type 2 diabetes mellitus with diabetic chronic kidney disease; N18.3 - Chronic kidney disease, stage 3 (moderate) (4) Atrial fibrillation Qualifiers: Atrial fibrillation type: chronic Qualified Code(s): I48.2 - Chronic atrial fibrillation (5) Anemia Qualifiers: Anemia type: unspecified type Qualified Code(s): D64.9 - Anemia, unspecified <Pura Desir - Last Filed: 10/24/18 18:41> (1) Anemia Qualifiers: Anemia type: unspecified type Qualified Code(s): D64.9 - Anemia, unspecified (2) Atrial fibrillation Qualifiers: Atrial fibrillation type: chronic Qualified Code(s): I48.2 - Chronic atrial fibrillation (4) Diabetes Qualifiers: Diabetes mellitus type: type 2 Diabetes mellitus moth exterminator insulin use: without moth exterminator use Diabetes mellitus complication status: with kidney complications Diabetes mellitus complication detail: with chronic kidney disease Chronic kidney disease stage: stage 3 (moderate) Qualified Code(s): E11.22 - Type 2 diabetes mellitus with diabetic chronic kidney disease; N18.3 - Chronic kidney disease, stage 3 (moderate) (5) Decubitus ulcer of buttock, unstageable Qualifiers: Laterality: unspecified laterality Qualified Code(s): L89.300 - Pressure ulcer of unspecified buttock, unstageable
[2018-10-24] MEDS ORDERED: Bicalutamide 50 MG TABLET PO SCH (15:15)
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
[2018-10-24] MEDS: *HR* Rivaroxaban 10 MG TABLET PO SCH (17:07)
[2018-10-24] MEDS: Bicalutamide 50 MG TABLET PO SCH (18:17)
[2018-10-24] MEDS ORDERED: 0.9 % Sodium Chloride 250 ML ONE (21:43)
[2018-10-25] MEDS: *HR* Methadone 10 MG TABLET PO SCH ×3 (00:25→16:58)
[2018-10-25 04:43] LABS: Basophils % 0.4 %; Eosinophils # 0.2 K/mcL (0.0-0.6); Eosinophils % 4.4 %; Hematocrit 22.7 % (37.5-50.1); Hemoglobin 7.2 g/dL (12.9-16.9); Immature Granulocytes % 0.8 % (0-4); Lymphocytes % 21.8 %; Mean Corpuscular HGB Conc 31.7 g/dL (31.6-35.5); Mean Corpuscular Hemoglobin 29.4 pg (28.0-33.3); Mean Corpuscular Volume 92.7 fL (83.0-100.0); Monocytes # 0.3 K/mcL (0.0-1.3); Monocytes % 6.3 %; Neutrophils # 3.1 K/mcL (1.6-8.9); Platelet Count 159 K/mcL (140-400); Red Blood Count 2.45 M/mcL (4.19-5.50); Red Cell Distribution Width 16.6 % (11.5-14.5); Segmented Neutrophils % 66.3 %; White Blood Count 4.7 K/mcL (4.3-11.1)
[2018-10-25 05:02] LABS: BUN/Creatinine Ratio 26 (6-26); Blood Urea Nitrogen 23 mg/dL (8-23); Calcium 7.1 mg/dL (8.6-10.3); Carbon Dioxide 26 mEq/L (23-29); Chloride 104 mEq/L (98-107); Glucose 76 mg/dL (70-105); Osmolality,Calculated 286 (280-300); Potassium 3.4 mEq/L (3.5-5.1); Sodium 137 mEq/L (136-145); eGFR For African Americans > 60 (> 60); eGFR For Non-African Americans > 60 (> 60)
[2018-10-25] MEDS: Cefepime HCl 2,000 MG in 0.9 % Sodium Chloride Mini Bag 100 ML IVPB SCH ×2 (06:16→18:27)
[2018-10-25] MEDS: Ascorbic Acid 500 MG TABLET PO SCH (06:17)
[2018-10-25] MEDS: Insulin LISPRO 300 UNITS/3 ML VIAL SQ SCH ×4 (07:43→20:32)
--- NOTE | 2018-10-25 07:59 | Internal Med Progress Note ---
<Chrissy Shields Roberta - Last Filed: 10/25/18 17:46> Hospitalist Progress Note - Encounter Date of Encounter: 10/25/18 Time of Encounter: 09:30 - Subjective Interval History: No acute events overnight. Patient complains of burning sensation in lower extremities, improved with removing bed sheet. Admits to mild LBP, but otherwise without pain. Patient denies headache, chest pain, shortness of breath, abdominal pain, fevers, chills. - Exam Vitals: Temp Pulse Resp BP Pulse Ox 98.1 F 67 16 127/76 95 10/25/18 07:27 10/25/18 07:27 10/25/18 07:27 10/25/18 07:27 10/25/18 07:27 Exam: Gen: No acute distress. Appears comfortable. Eyes: anicteric sclerae, moist conjunctivae HENT: Atraumatic; oropharynx clear with moist mucous membranes Neck: Trachea midline, supple Cardiac: Regular rate, irregular rhythm, no murmur, +S1/S2. Pulmonary: CTA bilaterally, no wheezes, rales or rhonchi, equal chest expansion Abdomen: soft, nontender, no guarding. No masses or hepatosplenomegaly MSK: stasis dermatitis of both legs, burning improved after removing bedsheets Extremities: no edema, nontender calf, dressing in place over bilateral ankles Neuro: no focal deficits. Psych: Normal mood and affect, alert and oriented - Assessment and Plan (1) Decubitus ulcer of buttock, unstageable Current Visit: Yes Status: Chronic Assessment and Plan: Left buttock sacral decubitus ulcer due to sedentary lifestyle and urinary/fecal incontinence CT abd/pelvis 10/17/18 - sacral ulcer in the left buttock with soft tissue gas, suspicion for early necrotizing fasciitis s/p Excisional debridement and washout of the sacral ulcer on 10/18/[address] Baugh No pre-op or intra-op wound cx obtained. Previous cx Mar 2018 + providentia and MSSA. Wound cx post-op positive for scant lock-sensitive P. mirabilis. Continue vancomycin, cefepime, and flagyl 03/07 (minimum), needs outpatient f/u with ID after discharge BMP, CBC and ESR/CRP while on IV antibiotics (2) Bone lesion Current Visit: Yes Status: Acute Assessment and Plan: Likely metastatic with PSA 267. CT abd/pelvis 10/17/18 - diffuse sclerotic lesions throughout the skeleton compatible with metastatic disease Oncology following and started Casodex, plan to start Lupron at later date IR c/s per Oncology recs for bone biopsy, planned for tomorrow (3) Stasis dermatitis of both legs Current Visit: Yes Status: Chronic Assessment and Plan: Bilateral chronic Wound care following Continue pain management and supportive care (4) Anemia Current Visit: Yes Status: Chronic Assessment and Plan: Chronic, stable No signs of active bleeding History of colonoscopy, needs outpatient follow-up (5) Atrial fibrillation Current Visit: Yes Status: Chronic Assessment and Plan: Chronic, controlled Continue Xarelto and Torpol (6) Chronic diastolic (congestive) heart failure Current Visit: Yes Status: Chronic Assessment and Plan: No acute exacerbation We will monitor closely and cautiously administer fluids as needed (7) Diabetes Current Visit: Yes Status: Chronic Assessment and Plan: Continue LD SSI ADA diet, NPO at midnight DVT Prophylaxis: On xarelto - Time Spent with Patient Total time spent is greater than 50% in coordination of care (as documented) at patient's floor/unit and/or counseling patient: Internal Medicine: Result - Labs CBC & Chem 7: 10/25/18 04:30 10/25/18 04:30 Labs: Short CBC 10/25/18 Range/Units 04:30 WBC 4.7 (4.3-11.1) K/mcL Hgb 7.2 L (12.9-16.9) g/dL Hct 22.7 L (37.5-50.1) % Plt Count 159 (140-400) K/mcL Neutrophils # 3.1 (1.6-8.9) K/mcL BMP 10/25/18 04:30 Sodium 137 Potassium 3.4 L Chloride 104 Carbon Dioxide 26 BUN 23 Creatinine 0.87 Glucose 76 Calcium 7.1 L - ABG Interpretation ABG results: PT/INR, D-dimer PT 24.1 Seconds (9.4-12.1) H D 10/24/18 05:25 Consult Discharge Plan - Plan Referrals: Kolton Baugh MD [Non-Partnered Physician] - (Please make an appointment for follow-up in wound care, approximately one week after patient is to be discharged) Nadege Jarquin, AIRCRAFT INSTRUMENT TESTER [Advanced Practice Nurse] - 11/06/18 3:00 pm NONE,PCP [Primary Care Provider] - Prescriptions: metroNIDAZOLE [Flagyl] 500 mg PO TID #42 tablet Cefepime HCl [Maxipime] 2,000 mg IVPB Q12HR #30 vial Methadone 20 mg PO Q8HR 4 Days #20 tablet OxyCODONE/APAP 10/325 [Percocet 10/325 MG] 1 tab PO Q8HR PRN 5 Days #14 tablet PRN Reason: Pain Vancomycin HCl in Dextrose 5 % [Vancomycin 750 mg/150 ml Bag] 750 mg IV DAILY #15 raymond <Pura Desir - Last Filed: 10/25/18 18:12> Hospitalist Progress Note - Encounter Date of Encounter: 10/25/18 - Exam Vitals: Temp Pulse Resp BP Pulse Ox 98.2 F 71 17 128/52 95 10/25/18 15:01 10/25/18 15:01 10/25/18 15:01 10/25/18 15:01 10/25/18 15:01 - Assessment and Plan (1) Anemia Current Visit: Yes Status: Chronic (2) Atrial fibrillation Current Visit: Yes Status: Chronic (3) Stasis dermatitis of both legs Current Visit: Yes Status: Chronic (4) Diabetes Current Visit: Yes Status: Chronic (5) Decubitus ulcer of buttock, unstageable Current Visit: Yes Status: Chronic (6) DVT prophylaxis Current Visit: Yes Status: Acute (7) Bone lesion Current Visit: Yes Status: Acute - Time Spent with Patient Total time spent is greater than 50% in coordination of care (as documented) at patient's floor/unit and/or counseling patient: Internal Medicine: Result - Labs CBC & Chem 7: 10/25/18 04:30 10/25/18 04:30 Labs: Short CBC 10/25/18 Range/Units 04:30 WBC 4.7 (4.3-11.1) K/mcL Hgb 7.2 L (12.9-16.9) g/dL Hct 22.7 L (37.5-50.1) % Plt Count 159 (140-400) K/mcL Neutrophils # 3.1 (1.6-8.9) K/mcL BMP 10/25/18 04:30 Sodium 137 Potassium 3.4 L Chloride 104 Carbon Dioxide 26 BUN 23 Creatinine 0.87 Glucose 76 Calcium 7.1 L - ABG Interpretation ABG results: PT/INR, D-dimer PT 24.1 Seconds (9.4-12.1) H D 10/24/18 05:25 - Attending Attestation I examined this patient and my medical decision-making was reviewed with the Resident Physician. I agree with the documented findings, disposition and treatment plan as described except to the extent set forth below. <Chrissy Shields - Last Filed: 10/25/18 17:46> (1) Decubitus ulcer of buttock, unstageable Qualifiers: Laterality: unspecified laterality Qualified Code(s): L89.300 - Pressure ulcer of unspecified buttock, unstageable (4) Anemia Qualifiers: Anemia type: unspecified type Qualified Code(s): D64.9 - Anemia, unspecified (5) Atrial fibrillation Qualifiers: Atrial fibrillation type: chronic Qualified Code(s): I48.2 - Chronic atrial fibrillation (7) Diabetes Qualifiers: Diabetes mellitus type: type 2 Diabetes mellitus skilled nursing insulin use: without termite renewal inspector use Diabetes mellitus complication status: with kidney complications Diabetes mellitus complication detail: with chronic kidney disease Chronic kidney disease stage: stage 3 (moderate) Qualified Code(s): E11.22 - Type 2 diabetes mellitus with diabetic chronic kidney disease; N18.3 - Chronic kidney disease, stage 3 (moderate) <Pura Desir - Last Filed: 10/25/18 18:12> (1) Anemia Qualifiers: Anemia type: unspecified type Qualified Code(s): D64.9 - Anemia, unspecified (2) Atrial fibrillation Qualifiers: Atrial fibrillation type: chronic Qualified Code(s): I48.2 - Chronic atrial fibrillation (4) Diabetes Qualifiers: Diabetes mellitus type: type 2 Diabetes mellitus skilled nursing insulin use: without termite renewal inspector use Diabetes mellitus complication status: with kidney complications Diabetes mellitus complication detail: with chronic kidney disease Chronic kidney disease stage: stage 3 (moderate) Qualified Code(s): E11.22 - Type 2 diabetes mellitus with diabetic chronic kidney disease; N18.3 - Chronic kidney disease, stage 3 (moderate) (5) Decubitus ulcer of buttock, unstageable Qualifiers: Laterality: unspecified laterality Qualified Code(s): L89.300 - Pressure ulcer of unspecified buttock, unstageable
[2018-10-25] MEDS: metroNIDAZOLE 500 MG TABLET PO SCH ×3 (09:25→20:32)
[2018-10-25] MEDS: Zinc Sulfate 220 MG CAPSULE PO SCH (09:25)
[2018-10-25] MEDS: Bumetanide 1 MG TABLET PO SCH (09:25)
[2018-10-25] MEDS: Isosorbide MONOnitrate (24 HR) 30 MG TAB.ER.24H PO SCH (09:25)
[2018-10-25] MEDS: Bicalutamide 50 MG TABLET PO SCH (09:25)
[2018-10-25] MEDS: Cyanocobalamin (B-12) 1,000 MCG TABLET PO SCH (09:25)
[2018-10-25] MEDS: Metoprolol XL (24 HR) Succ 25 MG TAB.ER.24H PO SCH (09:25)
[2018-10-25] MEDS: *HR* OxyCODONE Immed Rel 5 MG TABLET PO PRN ×2 (11:13→20:32)
--- NOTE | 2018-10-25 15:25 | Oncology Inp Progress Note ---
Date of Encounter: 10/25/18 Time of Encounter: 08:00 (1) Prostate cancer Current Visit: Yes Status: Acute Assessment and plan: metastatic to bone sclerotic multiole lesions, PSA >200, on casodex. Lupron to follow. Mild adenopathy. CTchest/bone scan as outpatient. Bine bx to be pursued. Co-morbidities, poor PS, sacral decubiti, hold off on active chemotherapy. Cr anemia, prior iron sat, B12 low on supplementation. Cr disease decubiti, s/p debribement. Transfuse as needed. Ferritin ~170. pain lower ext/shoulder --on methadone. Reports was taking percocet? at home. Plan reviewed with patient bedside. Oncology: Subj Interval history: Reports s/p dressing change LLext with some burning sensation. RT shoulder discomfort - Constitutional General appearance: no acute distress - Head Head exam: Present: atraumatic, normal inspection - Eye Eye exam: Present: conjuntiva pink, sclera anicteric - Respiratory Respiratory exam: Present: CTAB - GI/Abdominal GI/Abdominal exam: Present: normal bowel sounds, soft - Extremities Exam Additional comments: cr change lower ext discoloration, wound dressing talisha legs - Psychiatric Psychiatric exam: Present: normal affect Oncology: Obj Data - Labs CBC & Chem 7: 10/25/18 04:30 10/25/18 04:30 Consult Discharge Plan - Plan Referrals: Kolton Baugh MD [Non-Partnered Physician] - (Please make an appointment for follow-up in wound care, approximately one week after patient is to be discharged) Nadege Jarquin, CUSTOMER EXPERIENCE INTERN [Advanced Practice Nurse] - 11/06/18 3:00 pm NONE,PCP [Primary Care Provider] - Prescriptions: metroNIDAZOLE [Flagyl] 500 mg PO TID #42 tablet Cefepime HCl [Maxipime] 2,000 mg IVPB Q12HR #30 vial Methadone 20 mg PO Q8HR 4 Days #20 tablet OxyCODONE/APAP 10/325 [Percocet 10/325 MG] 1 tab PO Q8HR PRN 5 Days #14 tablet PRN Reason: Pain Vancomycin HCl in Dextrose 5 % [Vancomycin 750 mg/150 ml Bag] 750 mg IV DAILY #15 [email or web address] Inpatient Charges Provider: Dr. James Cartagena Follow up - Inpatient: [id number]
[2018-10-25] MEDS: *HR* Rivaroxaban 10 MG TABLET PO SCH (16:58)
[2018-10-26] MEDS: *HR* Methadone 10 MG TABLET PO SCH ×4 (00:20→23:53)
[2018-10-26 05:09] LABS: Hemoglobin 7.9 g/dL (12.9-16.9); Mean Corpuscular HGB Conc 31.6 g/dL (31.6-35.5); Mean Corpuscular Hemoglobin 29.8 pg (28.0-33.3); Mean Corpuscular Volume 94.3 fL (83.0-100.0); Mean Platelet Volume 9.5 fL (9.4-12.4); Platelet Count 168 K/mcL (140-400); Red Blood Count 2.65 M/mcL (4.19-5.50); Red Cell Distribution Width 17.1 % (11.5-14.5); White Blood Count 4.7 K/mcL (4.3-11.1)
[2018-10-26] MEDS: Cefepime HCl 2,000 MG in 0.9 % Sodium Chloride Mini Bag 100 ML IVPB SCH ×2 (05:09→21:59)
[2018-10-26] MEDS: *HR* OxyCODONE Immed Rel 5 MG TABLET PO PRN ×2 (05:10→20:06)
[2018-10-26] MEDS: Ascorbic Acid 500 MG TABLET PO SCH (05:10)
[2018-10-26 05:18] LABS: Prothrombin Time 22.3 Seconds (9.4-12.1)
[2018-10-26 05:29] LABS: Blood Urea Nitrogen 19 mg/dL (8-23); Calcium 7.3 mg/dL (8.6-10.3); Carbon Dioxide 29 mEq/L (23-29); Chloride 102 mEq/L (98-107); Glucose 68 mg/dL (70-105); Magnesium 1.9 mg/dL (1.6-2.6); Osmolality,Calculated 285 (280-300); Phosphorous 2.6 mg/dL (2.7-4.5); Potassium 3.6 mEq/L (3.5-5.1); Sodium 137 mEq/L (136-145)
[2018-10-26 05:43] LABS: BUN/Creatinine Ratio 23 (6-26); eGFR For African Americans > 60 (> 60); eGFR For Non-African Americans > 60 (> 60)
[2018-10-26] MEDS: Insulin LISPRO 300 UNITS/3 ML VIAL SQ SCH ×4 (07:34→22:08)
[2018-10-26] MEDS: Zinc Sulfate 220 MG CAPSULE PO SCH (08:22)
[2018-10-26] MEDS: Bumetanide 1 MG TABLET PO SCH (08:22)
[2018-10-26] MEDS: Bicalutamide 50 MG TABLET PO SCH (08:22)
[2018-10-26] MEDS: Metoprolol XL (24 HR) Succ 25 MG TAB.ER.24H PO SCH (08:23)
[2018-10-26] MEDS: Isosorbide MONOnitrate (24 HR) 30 MG TAB.ER.24H PO SCH (08:23)
[2018-10-26] MEDS: Cyanocobalamin (B-12) 1,000 MCG TABLET PO SCH (08:23)
[2018-10-26] MEDS: metroNIDAZOLE 500 MG TABLET PO SCH ×3 (08:23→22:04)
--- NOTE | 2018-10-26 09:18 | Internal Med Progress Note ---
<Pura Desir - Last Filed: 10/26/18 14:26> Hospitalist Progress Note - Encounter Date of Encounter: 10/26/18 - Exam Vitals: Temp Pulse Resp BP Pulse Ox 97.9 F 63 14 119/50 97 10/26/18 10:00 10/26/18 10:00 10/26/18 10:00 10/26/18 10:00 10/26/18 10:00 - Assessment and Plan (1) Anemia Current Visit: Yes Status: Chronic (2) Atrial fibrillation Current Visit: Yes Status: Chronic (3) Stasis dermatitis of both legs Current Visit: Yes Status: Chronic (4) Diabetes Current Visit: Yes Status: Chronic (5) Decubitus ulcer of buttock, unstageable Current Visit: Yes Status: Chronic (6) DVT prophylaxis Current Visit: Yes Status: Acute (7) Bone lesion Current Visit: Yes Status: Acute - Time Spent with Patient Total time spent is greater than 50% in coordination of care (as documented) at patient's floor/unit and/or counseling patient: Internal Medicine: Result - Labs CBC & Chem 7: 10/26/18 04:15 10/26/18 04:15 Labs: Short CBC 10/26/18 Range/Units 04:15 WBC 4.7 (4.3-11.1) K/mcL Hgb 7.9 L (12.9-16.9) g/dL Hct 25.0 L (37.5-50.1) % Plt Count 168 (140-400) K/mcL BMP 10/26/18 04:15 Sodium 137 Potassium 3.6 Chloride 102 Carbon Dioxide 29 BUN 19 Creatinine 0.84 Glucose 68 L Calcium 7.3 L - ABG Interpretation ABG results: PT/INR, D-dimer PT 22.3 Seconds (9.4-12.1) H 10/26/18 04:15 Consult Discharge Plan - Plan Referrals: Kolton Baugh MD [Non-Partnered Physician] - (Please make an appointment for follow-up in wound care, approximately one week after patient is to be discharged) Nadege Jarquin, AUDITOR INTERNAL [Advanced Practice Nurse] - 11/06/18 3:00 pm NONE,PCP [Primary Care Provider] - Prescriptions: metroNIDAZOLE [Flagyl] 500 mg PO TID #42 tablet Cefepime HCl [Maxipime] 2,000 mg IVPB Q12HR #30 vial Methadone 20 mg PO Q8HR 4 Days #20 tablet OxyCODONE/APAP 10/325 [Percocet 10/325 MG] 1 tab PO Q8HR PRN 5 Days #14 tablet PRN Reason: Pain Vancomycin HCl in Dextrose 5 % [Vancomycin 750 mg/150 ml Bag] 750 mg IV DAILY #15 [email or web address] - Attending Attestation I examined this patient and my medical decision-making was reviewed with the Resident Physician. I agree with the documented findings, disposition and treatment plan as described except to the extent set forth below. <Chrissy Shields - Last Filed: 10/26/18 15:07> Hospitalist Progress Note - Encounter Date of Encounter: 10/26/18 Time of Encounter: 08:30 - Subjective Interval History: No acute events overnight. Burning in lower extremities improved today, better when uncovered. Patient admits to pain related to sacral wound when being moved or turned. Otherwise without complaint. No fever, chills, nausea, vomiting, abdominal pain, chest pain, shortness of breath. - Exam Vitals: Temp Pulse Resp BP Pulse Ox 98.0 F 66 15 145/67 97 10/26/18 06:11 10/26/18 06:11 10/26/18 06:11 10/26/18 06:11 10/26/18 06:11 Exam: Gen: No acute distress. Appears comfortable. Eyes: anicteric sclerae, moist conjunctivae HENT: Atraumatic; oropharynx clear with moist mucous membranes Neck: Trachea midline, supple Cardiac: Regular rate, irregular rhythm, no murmur, +S1/S2. Pulmonary: CTA bilaterally, no wheezes, rales or rhonchi, equal chest expansion Abdomen: soft, nontender, no guarding. No masses or hepatosplenomegaly MSK: stasis dermatitis of both legs, burning improved after removing bedsheets Extremities: no edema, nontender calf, dressing in place over bilateral ankles Neuro: no focal deficits. Skin: Sacral would visualized without erythema, purulence, or signs of infection. Psych: Normal mood and affect, alert and oriented - Assessment and Plan (1) Decubitus ulcer of buttock, unstageable Current Visit: Yes Status: Chronic Assessment and Plan: Left buttock sacral decubitus ulcer due to sedentary lifestyle and urinary/fecal incontinence CT abd/pelvis 10/17/18 - sacral ulcer in the left buttock with soft tissue gas, suspicion for early necrotizing fasciitis s/p Excisional debridement and washout of the sacral ulcer on 10/18/[address] Baugh No pre-op or intra-op wound cx obtained. Previous cx Mar 2018 + providentia and MSSA. Wound cx post-op positive for scant lock-sensitive P. mirabilis. Continue vancomycin, cefepime, and flagyl 04/06 (minimum), needs outpatient f/u with ID after discharge BMP, CBC and ESR/CRP while on IV antibiotics (2) Bone lesion Current Visit: Yes Status: Acute Assessment and Plan: Likely metastatic with PSA 267. CT abd/pelvis 10/17/18 - diffuse sclerotic lesions throughout the skeleton compatible with metastatic disease Oncology following and started Casodex, plan to start Lupron at later date IR c/s per Oncology recs for bone biopsy, requesting the INR be below 1.5 (2.0 today) -Discussed with IR who requested administration of Vitamin K to bring down INR -Repeat INR pending -Last dose of Xarelto was at 1600 yesterday -Patient is high risk for stroke with CHADSVASC of 4, if unable to do biopsy today will place on Heparin over the weekend pending biopsy (3) Stasis dermatitis of both legs Current Visit: Yes Status: Chronic Assessment and Plan: Bilateral chronic Wound care following Continue pain management and supportive care (4) Anemia Current Visit: Yes Status: Chronic Assessment and Plan: Chronic, stable No signs of active bleeding History of colonoscopy, needs outpatient follow-up (5) Atrial fibrillation Current Visit: Yes Status: Chronic Assessment and Plan: Chronic, controlled Continue Xarelto and Torpol (6) Chronic diastolic (congestive) heart failure Current Visit: Yes Status: Chronic Assessment and Plan: No acute exacerbation We will monitor closely and cautiously administer fluids as needed (7) Diabetes Current Visit: Yes Status: Chronic Assessment and Plan: Continue LD SSI - Time Spent with Patient Total time spent is greater than 50% in coordination of care (as documented) at patient's floor/unit and/or counseling patient: Internal Medicine: Result - Labs CBC & Chem 7: 10/26/18 04:15 10/26/18 04:15 Labs: Short CBC 10/26/18 Range/Units 04:15 WBC 4.7 (4.3-11.1) K/mcL Hgb 7.9 L (12.9-16.9) g/dL Hct 25.0 L (37.5-50.1) % Plt Count 168 (140-400) K/mcL BMP 10/26/18 04:15 Sodium 137 Potassium 3.6 Chloride 102 Carbon Dioxide 29 BUN 19 Creatinine 0.84 Glucose 68 L Calcium 7.3 L - ABG Interpretation ABG results: PT/INR, D-dimer PT 22.3 Seconds (9.4-12.1) H 10/26/18 04:15 <Pura Desir - Last Filed: 10/26/18 14:26> (1) Anemia Qualifiers: Anemia type: unspecified type Qualified Code(s): D64.9 - Anemia, unspecified (2) Atrial fibrillation Qualifiers: Atrial fibrillation type: chronic Qualified Code(s): I48.2 - Chronic atrial fibrillation (4) Diabetes Qualifiers: Diabetes mellitus type: type 2 Diabetes mellitus senior care insulin use: without termite control servicer use Diabetes mellitus complication status: with kidney complications Diabetes mellitus complication detail: with chronic kidney disease Chronic kidney disease stage: stage 3 (moderate) Qualified Code(s): E11.22 - Type 2 diabetes mellitus with diabetic chronic kidney disease; N18.3 - Chronic kidney disease, stage 3 (moderate) (5) Decubitus ulcer of buttock, unstageable Qualifiers: Laterality: unspecified laterality Qualified Code(s): L89.300 - Pressure ulcer of unspecified buttock, unstageable <Chrissy Shields - Last Filed: 10/26/18 15:07> (1) Decubitus ulcer of buttock, unstageable Qualifiers: Laterality: unspecified laterality Qualified Code(s): L89.300 - Pressure ulcer of unspecified buttock, unstageable (4) Anemia Qualifiers: Anemia type: unspecified type Qualified Code(s): D64.9 - Anemia, unspecified (5) Atrial fibrillation Qualifiers: Atrial fibrillation type: chronic Qualified Code(s): I48.2 - Chronic atrial fibrillation (7) Diabetes Qualifiers: Diabetes mellitus type: type 2 Diabetes mellitus senior care insulin use: without senior care use Diabetes mellitus complication status: with kidney complications Diabetes mellitus complication detail: with chronic kidney disease Chronic kidney disease stage: stage 3 (moderate) Qualified Code(s): E11.22 - Type 2 diabetes mellitus with diabetic chronic kidney disease; N18.3 - Chronic kidney disease, stage 3 (moderate)
[2018-10-26 15:09] LABS: INR 1.6; Prothrombin Time 17.8 Seconds (9.4-12.1)
--- NOTE | 2018-10-26 17:29 | Oncology Inp Progress Note ---
<Dang Ahn M - Last Filed: 10/26/18 17:24> Date of Encounter: 10/26/18 Time of Encounter: 14:10 (1) Bone lesion Current Visit: Yes Status: Acute Assessment and plan: Diffuse sclerotic lesions noted throughout skeleton, concerning for metastatic disease CT abdomen and pelvis: No mass identified. Mild inguinal lymphadenopathy. Chest x-ray:Extensive osteoblastic metastases. PSA 267 Plan: Start Casodex 150 mg PO daily. Consult to Interventional Radiology for bone biopsy of bony lesions concerning for metastatic disease. Planning for Monday10/29/18. Patient should be nothing by mouth at midnight. Holds a relative recommendations of interventional radiology. (2) Anemia Current Visit: Yes Status: Chronic Assessment and plan: Chronic anemia since March, Hemoglobin 7 Patient currently on oral iron, vitamin C, and B12. Denies hematochezia, melena, or hematuria Plan: Consider repeating iron profile, ferritin, B12, and folate levels. Patient may require iron infusion or B12 injections. Monitor CBC daily. Transfuse for hgb < 7, or <8 for active bleeding. Qualifiers: Anemia type: unspecified type Qualified Code(s): D64.9 - Anemia, unspecified Oncology: Subj Interval history: Rob is awake and alert in bed this afternoon, with at bedside. She notes that he was unable to have his bone biopsy this morning because his INR is too high. He has received vitamin K and is awaiting results to see if he may proceed with the procedure later this afternoon. Discussed with these results are not critical for his diagnosis, and it may be done on Monday. He complaints of being hungry and thirsty. He continues to complaining of lower extremity weakness and back pain. She notes that Dr. Woodruff, in [place], manages his pain medication. He states that he would rather have Percocet than his methadone. We will discuss with primary team. Discussed lower extremity weakness, dif ficulty or pain position changes, and previous history of back surgery. We will attempt to get an MRI of the cervical, thoracic, and lumbar spine to evaluate. He has are open to attempting an MRI. - Additional findings Additional findings: General: Alert and oriented. Repetitive. Mental Status: Affect appropriate for circumstances HEENT: Sclerae anicteric. No mucositis or thrush. No other oral lesions or erythema. Skin: No rashes or petechiae. Pale. Scattered bruising of upper extremities Lungs: Diminished Cardiovascular: Regular rhythm, rate controlled. Abdomen: Soft, nontender; Neurologic: Alert, cranial nerves II-XII intact; no focal weakness or sensory abnormalities. Oncology: Obj Data - Labs CBC & Chem 7: 10/26/18 04:15 10/26/18 04:15 Consult Discharge Plan - Plan Referrals: Kolton Baugh MD [Non-Partnered Physician] - (Please make an appointment for follow-up in wound care, approximately one week after patient is to be discharged) Nadege Jarquin AIRWAY CONTROLLER [Advanced Practice Nurse] - 11/06/18 3:00 pm NONE,PCP [Primary Care Provider] - Prescriptions: Methadone 20 mg PO Q8HR 4 Days #20 tablet OxyCODONE/APAP 10/325 [Percocet 10/325 MG] 1 tab PO Q8HR PRN 5 Days #14 tablet PRN Reason: Pain Cefepime HCl [Maxipime] 2,000 mg IVPB Q12HR #30 vial metroNIDAZOLE [Flagyl] 500 mg PO TID #42 tablet Vancomycin HCl in Dextrose 5 % [Vancomycin 750 mg/150 ml Bag] 750 mg IV DAILY #15 [email or web address] Inpatient Charges Provider: Dr. James Storey <Jonn Storey S - Last Filed: 10/26/18 19:55> Date of Encounter: 10/26/18 Oncology: Obj Data - Labs CBC & Chem 7: 10/26/18 04:15 10/26/18 04:15 Inpatient Charges Provider: Dr. James Storey Follow up - Inpatient: [id number] - Attending Attestation I examined this patient and my medical decision-making was reviewed with the Advanced Practice Nurse. I agree with the documented findings, disposition and treatment plan as described except to the extent set forth below. Mr. 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 He has been able to ambulate since July. I am concerned he may have metastatic involvement of the spine with spinal cord impingement. I recommended MRI imaging of the cervical, thoracic and lumbar spine. Unfortunately, if he is found to have spinal cord involvement, is a likelihood of meaningful return of function secondary to duration of stability. We have placed him on Casodex for his prostate cancer will plan to transition outpatient Lupron. Would continue with physical therapy occupational therapy with hopeful disposition the near future.
[2018-10-26] MEDS: *HR* Enoxaparin 80 MG/0.8 ML SYRINGE SQ SCH (18:41)
[2018-10-27] MEDS: *HR* OxyCODONE Immed Rel 5 MG TABLET PO PRN (04:10)
[2018-10-27 04:57] LABS: Hematocrit 24.5 % (37.5-50.1); Hemoglobin 7.6 g/dL (12.9-16.9); Mean Corpuscular Hemoglobin 29.8 pg (28.0-33.3); Mean Corpuscular Volume 96.1 fL (83.0-100.0); Mean Platelet Volume 9.4 fL (9.4-12.4); Platelet Count 176 K/mcL (140-400); Red Blood Count 2.55 M/mcL (4.19-5.50); Red Cell Distribution Width 17.2 % (11.5-14.5); White Blood Count 5.4 K/mcL (4.3-11.1)
[2018-10-27 05:21] LABS: BUN/Creatinine Ratio 17 (6-26); Blood Urea Nitrogen 18 mg/dL (8-23); Calcium 7.3 mg/dL (8.6-10.3); Carbon Dioxide 29 mEq/L (23-29); Chloride 100 mEq/L (98-107); Glucose 73 mg/dL (70-105); Magnesium 1.9 mg/dL (1.6-2.6); Osmolality,Calculated 284 (280-300); Phosphorous 2.7 mg/dL (2.7-4.5); Potassium 3.8 mEq/L (3.5-5.1); Sodium 137 mEq/L (136-145); eGFR For African Americans > 60 (> 60); eGFR For Non-African Americans > 60 (> 60)
[2018-10-27] MEDS: *HR* Enoxaparin 80 MG/0.8 ML SYRINGE SQ SCH ×2 (05:59→18:38)
[2018-10-27] MEDS: Ascorbic Acid 500 MG TABLET PO SCH (06:00)
[2018-10-27] MEDS: Cefepime HCl 2,000 MG in 0.9 % Sodium Chloride Mini Bag 100 ML IVPB SCH ×2 (06:00→18:38)
[2018-10-27] MEDS: Insulin LISPRO 300 UNITS/3 ML VIAL SQ SCH ×4 (08:18→20:44)
[2018-10-27] MEDS: metroNIDAZOLE 500 MG TABLET PO SCH ×3 (08:37→20:46)
[2018-10-27] MEDS: Bumetanide 1 MG TABLET PO SCH (08:37)
[2018-10-27] MEDS: Isosorbide MONOnitrate (24 HR) 30 MG TAB.ER.24H PO SCH (08:37)
[2018-10-27] MEDS: Zinc Sulfate 220 MG CAPSULE PO SCH (08:37)
[2018-10-27] MEDS: *HR* Methadone 10 MG TABLET PO SCH ×3 (08:37→23:46)
[2018-10-27] MEDS: Cyanocobalamin (B-12) 1,000 MCG TABLET PO SCH (08:38)
[2018-10-27] MEDS: Bicalutamide 50 MG TABLET PO SCH (08:38)
[2018-10-27] MEDS: Metoprolol XL (24 HR) Succ 25 MG TAB.ER.24H PO SCH (08:38)
--- NOTE | 2018-10-27 10:44 | Internal Med Progress Note ---
<Pura Desir - Last Filed: 10/27/18 14:36> Hospitalist Progress Note - Encounter Date of Encounter: 10/27/18 - Exam Vitals: Temp Pulse Resp BP Pulse Ox 98.6 F 65 17 116/49 94 10/27/18 11:04 10/27/18 11:04 10/27/18 11:04 10/27/18 11:04 10/27/18 11:04 - Assessment and Plan (1) Anemia Current Visit: Yes Status: Chronic (2) Atrial fibrillation Current Visit: Yes Status: Chronic (3) Stasis dermatitis of both legs Current Visit: Yes Status: Chronic (4) Diabetes Current Visit: Yes Status: Chronic (5) Decubitus ulcer of buttock, unstageable Current Visit: Yes Status: Chronic (6) DVT prophylaxis Current Visit: Yes Status: Acute (7) Bone lesion Current Visit: Yes Status: Acute - Time Spent with Patient Total time spent is greater than 50% in coordination of care (as documented) at patient's floor/unit and/or counseling patient: Internal Medicine: Result - Labs CBC & Chem 7: 10/27/18 04:00 10/27/18 04:00 Labs: Short CBC 10/27/18 Range/Units 04:00 WBC 5.4 (4.3-11.1) K/mcL Hgb 7.6 L (12.9-16.9) g/dL Hct 24.5 L (37.5-50.1) % Plt Count 176 (140-400) K/mcL BMP 10/27/18 04:00 Sodium 137 Potassium 3.8 Chloride 100 Carbon Dioxide 29 BUN 18 Creatinine 1.05 Glucose 73 Calcium 7.3 L - ABG Interpretation ABG results: PT/INR, D-dimer PT 17.8 Seconds (9.4-12.1) H 10/26/18 14:46 - Impressions Impressions Cervical Spine MRI 10/26/18 19:11 IMPRESSION: 1. Diffusely heterogeneous marrow with patchy marrow edema in the cervical and thoracic spine may relate to a marrow replacing process such as diffuse osseous metastatic disease. Follow-up postcontrast MRI of the spine may be helpful for further evaluation. 2. Multilevel degenerative changes in the cervical and thoracic spine. The cervical and thoracic spinal canal are not well evaluated due to motion artifact. D/ / Homer Lewis / Homer Lewis Interpreting Provider: Homer Lewis Lumbar Spine MRI 10/26/18 19:11 IMPRESSION: Limited exam due to artifact Heterogeneous marrow signal suggesting diffuse bone metastases Multilevel degenerative disc disease as described. See above for detailed description of each level. Question clumping of the nerve roots in the lower lumbar spine. This could be artifactual or due to adhesive arachnoiditis D/ / Silas Butler / Silas Butler Interpreting Provider: Silas Butler Thoracic Spine MRI 10/26/18 19:11 IMPRESSION: 1. Diffusely heterogeneous marrow with patchy marrow edema in the cervical and thoracic spine may relate to a marrow replacing process such as diffuse osseous metastatic disease. Follow-up postcontrast MRI of the spine may be helpful for further evaluation. 2. Multilevel degenerative changes in the cervical and thoracic spine. The cervical and thoracic spinal canal are not well evaluated due to motion artifact. D/ / Homer Lewis / oHmer Lewis Interpreting Provider: Homer Lewis Consult Discharge Plan - Plan Referrals: Kolton Baugh MD [Non-Partnered Physician] - (Please make an appointment for follow-up in wound care, approximately one week after patient is to be discharged) Nadege Jarquin, FRONT DESK AGENT [Advanced Practice Nurse] - 11/06/18 3:00 pm NONE,PCP [Primary Care Provider] - Prescriptions: metroNIDAZOLE [Flagyl] 500 mg PO TID #42 tablet Cefepime HCl [Maxipime] 2,000 mg IVPB Q12HR #30 vial OxyCODONE/APAP 10/325 [Percocet 10/325 MG] 1 tab PO Q8HR PRN 5 Days #14 tablet PRN Reason: Pain Vancomycin HCl in Dextrose 5 % [Vancomycin 750 mg/150 ml Bag] 750 mg IV DAILY #15 [email or web address] - Attending Attestation I examined this patient and my medical decision-making was reviewed with the Resident Physician. I agree with the documented findings, disposition and treatment plan as described except to the extent set forth below. <Tien Collins - Last Filed: 10/27/18 16:27> Hospitalist Progress Note - Encounter Date of Encounter: 10/27/18 Time of Encounter: 08:45 - Subjective Interval History: Patient seen and examined resting comfortably in bed. Patient reports no acute complaints. MRI results yesterday reveals diffuse bony metastasis. Awaiting bone marrow biopsy on Monday. - Exam Vitals: Temp Pulse Resp BP Pulse Ox 98.5 F 68 16 93/53 94 10/27/18 07:00 10/27/18 07:00 10/27/18 07:00 10/27/18 07:00 10/27/18 07:00 Exam: Gen: No acute distress. Appears comfortable. Eyes: anicteric sclerae, moist conjunctivae HENT: Atraumatic; oropharynx clear with moist mucous membranes Neck: Trachea midline, supple Cardiac: Regular rate, irregular rhythm, no murmur, +S1/S2. Pulmonary: CTA bilaterally, no wheezes, rales or rhonchi, equal chest expansion Abdomen: soft, nontender, no guarding. No masses or hepatosplenomegaly MSK: stasis dermatitis of both legs, burning improved after removing bedsheets Extremities: no edema, nontender calf, dressing in place over bilateral ankles Neuro: no focal deficits. Skin: Sacral would visualized without erythema, purulence, or signs of infection. Psych: Normal mood and affect, alert and oriented - Assessment and Plan (1) Decubitus ulcer of buttock, unstageable Current Visit: Yes Status: Chronic Assessment and Plan: Left buttock toxic decubitus ulcer due to sedentary lifestyle and urinary/fecal incontinence CT of the abdomen and pelvis shows sacral lacunas ulcer in the left buttock with soft tissue gas and swelling in this region. There was no discrete drainable fluid collection although pockets of fluid and gas were noted in this region. The soft tissue gas also extended laterally and superiorly within the soft tissues raising suspicion for early necrotizing fasciitis. Excisional debridement and washout of the sacral ulcer 10/18/[address] Van. No pre-op or intra-op wound cultures were obtained. Previous wound cultures obtained March 2018 were positive for providentia and MSSA. Wound culture obtained post-op positive for scant lock-sensitive P. mirabilis. Currently on vancomycin, cefepime, and flagyl per ID recommendations. He will complete at least a 14 day course and will follow up as outpatient with infectious disease for further management and recommendations. He will need his basic panel, CBC and ESR/CRP monitored while he is on IV antibiotics. A nticipate discharge to skilled rehabilitation. (2) Bone lesion Current Visit: Yes Status: Acute Assessment and Plan: CT abdomen pelvis revealed Diffuse sclerotic lesions are noted throughout the visualized skeleton compatible with metastatic disease until proven otherwise. MRI C-spine, T-spine, L-spine revealed diffuse metastatic disease. PSA is elevated. Awaiting bone lesion biopsy on Monday. (3) Stasis dermatitis of both legs Current Visit: Yes Status: Chronic Assessment and Plan: Lower extremity discoloration, chronic; wound care following. (4) Atrial fibrillation Current Visit: Yes Status: Chronic Assessment and Plan: Controlled. Hold Xarelto pending bone biopsy. Continue Toprol and Lovenox (5) Anemia Current Visit: Yes Status: Chronic Assessment and Plan: Likely secondary to chronic disease, patient's baseline hemoglobin is 7-8. Patient denies dark stools, bloody stools and other sources of bleeding. He has never had a colonoscopy. Outpatient follow-up. (6) Chronic diastolic (congestive) heart failure Current Visit: No Status: Chronic Assessment and Plan: No acute exacerbation We will monitor closely and cautiously administer fluids as needed (7) Diabetes Current Visit: Yes Status: Chronic Assessment and Plan: Continue Low dose insulin sliding scale as needed ADA diet (8) DVT prophylaxis Current Visit: Yes Status: Acute Assessment and Plan: Lovenox, resume Xarelto after bone lesion biopsy. - Time Spent with Patient Total time spent is greater than 50% in coordination of care (as documented) at patient's floor/unit and/or counseling patient: Internal Medicine: Result - Labs CBC & Chem 7: 10/27/18 04:00 10/27/18 04:00 Labs: Short CBC 10/27/18 Range/Units 04:00 WBC 5.4 (4.3-11.1) K/mcL Hgb 7.6 L (12.9-16.9) g/dL Hct 24.5 L (37.5-50.1) % Plt Count 176 (140-400) K/mcL BMP 10/27/18 04:00 Sodium 137 Potassium 3.8 Chloride 100 Carbon Dioxide 29 BUN 18 Creatinine 1.05 Glucose 73 Calcium 7.3 L - ABG Interpretation ABG results: PT/INR, D-dimer PT 17.8 Seconds (9.4-12.1) H 10/26/18 14:46 - Impressions Impressions Cervical Spine MRI 10/26/18 19:11 IMPRESSION: 1. Diffusely heterogeneous marrow with patchy marrow edema in the cervical and thoracic spine may relate to a marrow replacing process such as diffuse osseous metastatic disease. Follow-up postcontrast MRI of the spine may be helpful for further evaluation. 2. Multilevel degenerative changes in the cervical and thoracic spine. The cervical and thoracic spinal canal are not well evaluated due to motion artifact. D/ / Homer Sessions / Homer Lewis Interpreting Provider: Homer Lewis Lumbar Spine MRI 10/26/18 19:11 IMPRESSION: Limited exam due to artifact Heterogeneous marrow signal suggesting diffuse bone metastases Multilevel degenerative disc disease as described. See above for detailed description of each level. Question clumping of the nerve roots in the lower lumbar spine. This could be artifactual or due to adhesive arachnoiditis D/ / Silas Butler / Silas Butler Interpreting Provider: Silas Butler Thoracic Spine MRI 10/26/18 19:11 IMPRESSION: 1. Diffusely heterogeneous marrow with patchy marrow edema in the cervical and thoracic spine may relate to a marrow replacing process such as diffuse osseous metastatic disease. Follow-up postcontrast MRI of the spine may be helpful for further evaluation. 2. Multilevel degenerative changes in the cervical and thoracic spine. The cervical and thoracic spinal canal are not well evaluated due to motion artifact. D/ / Homer Sessions / Homer Lewis Interpreting Provider: Homer Lewis <Pura Desir - Last Filed: 10/27/18 14:36> (1) Anemia Qualifiers: Anemia type: unspecified type Qualified Code(s): D64.9 - Anemia, unspecified (2) Atrial fibrillation Qualifiers: Atrial fibrillation type: chronic Qualified Code(s): I48.2 - Chronic atrial fibrillation (4) Diabetes Qualifiers: Diabetes mellitus type: type 2 Diabetes mellitus fci insulin use: without computer terminal operator use Diabetes mellitus complication status: with kidney complications Diabetes mellitus complication detail: with chronic kidney disease Chronic kidney disease stage: stage 3 (moderate) Qualified Code(s): E11.22 - Type 2 diabetes mellitus with diabetic chronic kidney disease; N18.3 - Chronic kidney disease, stage 3 (moderate) (5) Decubitus ulcer of buttock, unstageable Qualifiers: Laterality: unspecified laterality Qualified Code(s): L89.300 - Pressure ulcer of unspecified buttock, unstageable <Tien Collins - Last Filed: 10/27/18 16:27> (1) Decubitus ulcer of buttock, unstageable Qualifiers: Laterality: unspecified laterality Qualified Code(s): L89.300 - Pressure ulcer of unspecified buttock, unstageable (4) Atrial fibrillation Qualifiers: Atrial fibrillation type: chronic Qualified Code(s): I48.2 - Chronic atrial fibrillation (5) Anemia Qualifiers: Anemia type: unspecified type Qualified Code(s): D64.9 - Anemia, unspecified (7) Diabetes Qualifiers: Diabetes mellitus type: type 2 Diabetes mellitus computer terminal operator insulin use: without computer terminal operator use Diabetes mellitus complication status: with kidney complications Diabetes mellitus complication detail: with chronic kidney disease Chronic kidney disease stage: stage 3 (moderate) Qualified Code(s): E11.22 - Type 2 diabetes mellitus with diabetic chronic kidney disease; N18.3 - Chronic kidney disease, stage 3 (moderate)
[2018-10-27] MEDS ORDERED: Ondansetron 4 MG/2 ML VIAL IVP ONE (12:32)
[2018-10-28] MEDS: *HR* OxyCODONE Immed Rel 5 MG TABLET PO PRN (02:56)
[2018-10-28] MEDS: Cefepime HCl 2,000 MG in 0.9 % Sodium Chloride Mini Bag 100 ML IVPB SCH ×2 (06:23→17:50)
[2018-10-28] MEDS: *HR* Enoxaparin 80 MG/0.8 ML SYRINGE SQ SCH (06:23)
[2018-10-28] MEDS: Ascorbic Acid 500 MG TABLET PO SCH (06:23)
--- NOTE | 2018-10-28 08:13 | Internal Med Progress Note ---
Hospitalist Progress Note - Encounter Date of Encounter: 10/28/18 Time of Encounter: 11:23 - Subjective Interval History: Farida has complaints of ulcer pain, denies fevers/chills. Having weakness and nausea with vomiting yesterday and today he is still feeling a little nauseated. - Exam Vitals: Temp Pulse Resp BP Pulse Ox 98.3 F 77 16 120/56 100 10/28/18 07:10 10/28/18 07:10 10/28/18 07:10 10/28/18 07:10 10/28/18 07:10 Exam: Gen: No acute distress. Appears comfortable. Eyes: anicteric sclerae, moist conjunctivae HENT: Atraumatic; oropharynx clear with moist mucous membranes Neck: Trachea midline, supple Cardiac: Regular rate, irregular rhythm, no murmur, +S1/S2. Pulmonary: CTA bilaterally, no wheezes, rales or rhonchi, equal chest expansion Abdomen: soft, nontender, no guarding. No masses or hepatosplenomegaly MSK: stasis dermatitis of both legs, burning improved after removing bedsheets Extremities: no edema, nontender calf, dressing in place over bilateral ankles Neuro: no focal deficits. Skin: Sacral would visualized without erythema, purulence, or signs of infection. Psych: Normal mood and affect, alert and oriented - Assessment and Plan (1) Anemia Current Visit: Yes Status: Chronic Assessment and Plan: Likely secondary to chronic disease, patient's baseline hemoglobin is 7-8. Patient denies dark stools, bloody stools and other sources of bleeding. (2) Atrial fibrillation Current Visit: Yes Status: Chronic Assessment and Plan: Rate controlled. Hold Xarelto pending bone biopsy. Continue Toprol and Lovenox (3) Stasis dermatitis of both legs Current Visit: Yes Status: Chronic Assessment and Plan: Lower extremity discoloration, chronic; wound care following. (4) Diabetes Current Visit: Yes Status: Chronic Assessment and Plan: Continue Low dose insulin sliding scale as needed ADA diet (5) Decubitus ulcer of buttock, unstageable Current Visit: Yes Status: Chronic Assessment and Plan: Left buttock toxic decubitus ulcer due to sedentary lifestyle and urinary/fecal incontinence CT of the abdomen and pelvis shows sacral lacunas ulcer in the left buttock with soft tissue gas and swelling in this region. There was no discrete drainable fluid collection although pockets of fluid and gas were noted in this region. The soft tissue gas also extended laterally and superiorly within the soft tissues raising suspicion for early necrotizing fasciitis. Excisional debridement and washout of the sacral ulcer 10/18/[address] Van. No pre-op or intra-op wound cultures were obtained. Previous wound cultures obtained March 2018 were positive for providentia and MSSA. Wound culture obtained post-op positive for scant lock-sensitive P. mirabilis. Currently on vancomycin, cefepime, and flagyl per ID recommendations. He will complete at least a 14 day course and will follow up as outpatient with infectious disease for further management and recommendations. He will need his basic panel, CBC and ESR/CRP monitored while he is on IV antibiotics. Anticipate discharge to skilled rehabilitation. (6) DVT prophylaxis Current Visit: Yes Status: Acute Assessment and Plan: Lovenox, resume Xarelto after bone lesion biopsy. (7) Bone lesion Current Visit: Yes Status: Acute Assessment and Plan: CT abdomen pelvis revealed Diffuse sclerotic lesions are noted throughout the visualized skeleton compatible with metastatic disease until proven otherwise. MRI C-spine, T-spine, L-spine revealed diffuse metastatic disease. PSA is elevated. Awaiting bone lesion biopsy on Monday. (8) Chronic diastolic (congestive) heart failure Current Visit: No Status: Chronic - Time Spent with Patient Total time spent is greater than 50% in coordination of care (as documented) at patient's floor/unit and/or counseling patient: Internal Medicine: Result - Labs CBC & Chem 7: 10/27/18 04:00 10/27/18 04:00 - ABG Interpretation ABG results: PT/INR, D-dimer PT 17.8 Seconds (9.4-12.1) H 10/26/18 14:46 Consult Discharge Plan - Plan Referrals: Kolton Baugh MD [Non-Partnered Physician] - (Please make an appointment for follow-up in wound care, approximately one week after patient is to be discharged) Nadege Jarquin, INSTRUMENT OPERATOR [Advanced Practice Nurse] - 11/06/18 3:00 pm NONE,PCP [Primary Care Provider] - Prescriptions: metroNIDAZOLE [Flagyl] 500 mg PO TID #42 tablet Cefepime HCl [Maxipime] 2,000 mg IVPB Q12HR #30 vial Vancomycin HCl in Dextrose 5 % [Vancomycin 750 mg/150 ml Bag] 750 mg IV DAILY #15 [email or web address] (1) Anemia Qualifiers: Anemia type: unspecified type Qualified Code(s): D64.9 - Anemia, unspecified (2) Atrial fibrillation Qualifiers: Atrial fibrillation type: chronic Qualified Code(s): I48.2 - Chronic atrial fibrillation (4) Diabetes Qualifiers: Diabetes mellitus type: type 2 Diabetes mellitus adjunct faculty for medical terminology insulin use: without adjunct faculty for medical terminology use Diabetes mellitus complication status: with kidney complications Diabetes mellitus complication detail: with chronic kidney disease Chronic kidney disease stage: stage 3 (moderate) Qualified Code(s): E11.22 - Type 2 diabetes mellitus with diabetic chronic kidney disease; N18.3 - Chronic kidney disease, stage 3 (moderate) (5) Decubitus ulcer of buttock, unstageable Qualifiers: Laterality: unspecified laterality Qualified Code(s): L89.300 - Pressure ulcer of unspecified buttock, unstageable
[2018-10-28] MEDS: Insulin LISPRO 300 UNITS/3 ML VIAL SQ SCH ×4 (08:16→21:20)
[2018-10-28] MEDS: Zinc Sulfate 220 MG CAPSULE PO SCH (08:21)
[2018-10-28] MEDS: Bicalutamide 50 MG TABLET PO SCH (08:21)
[2018-10-28] MEDS: metroNIDAZOLE 500 MG TABLET PO SCH ×3 (08:21→21:20)
[2018-10-28] MEDS: Metoprolol XL (24 HR) Succ 25 MG TAB.ER.24H PO SCH (08:21)
[2018-10-28] MEDS: Bumetanide 1 MG TABLET PO SCH (08:21)
[2018-10-28] MEDS: *HR* Methadone 10 MG TABLET PO SCH ×2 (08:21→15:25)
[2018-10-28] MEDS: Cyanocobalamin (B-12) 1,000 MCG TABLET PO SCH (08:21)
[2018-10-28] MEDS: Isosorbide MONOnitrate (24 HR) 30 MG TAB.ER.24H PO SCH (08:21)
--- NOTE | 2018-10-28 09:18 | Oncology Inp Progress Note ---
Date of Encounter: 10/28/18 Time of Encounter: 08:30 (1) Prostate cancer Current Visit: Yes Status: Acute Assessment and plan: He was found to have elevated PSA with multiple sclerotic bony lesions. MRI imaging of the cervical, thoracic or lumbar spine do not reveal any chon evidence of cord impingement. Bone biopsy tomorrow confirm diagnosis. We can also utilize this for next duration sequencing for future therapy. Continue Casodex for now and after discharge. We will establish outpatient follow-up with Dr. Cornelius shortly after discharge for initiation of Lupron. He is undergoing physical therapy and occupational therapy evaluation as he will require long-term facility placement. Continue Casodex as prescribed after discharge. I had a goals of care conversation with the patient. He states he would like to return home but is not sure exactly what he wants or needs. I explained to the patient he is not able to return home secondary to his debility. He will likely require 1-2 person assist for most ADLs given his weakness. There is no easy fix for stability or weakness. I doubt he will recover much of his strength. If patient strongly desires to go home, I think home with hospice would be best. This was discussed with the patient today. Otherwise, discharge to a long-term facility would be likely required. The pros and cons of this approach was discussed with the patient. His was not present today. After this discussion, the patient is uncertain of what he wants. To be chon, I think hospice would benefit this patient best. Please consult palliative care tomorrow to discuss goals of care moving forward. We will continue to assist in his care as well. (2) Anemia Current Visit: Yes Status: Chronic Assessment and plan: Indices most consistent with anemia chronic disease likely secondary to both metastatic prostate cancer as well as sacral decubitus ulcer. B12 deficiency also noted. He is currently on oral B12. Will repeat to insure response. May continue oral iron as well. This should improve with time and treatment of his prostate cancer and decubitus ulcer. Indices are stable. Qualifiers: Anemia type: unspecified type Qualified Code(s): D64.9 - Anemia, unspecified (3) Decubitus ulcer of buttock, unstageable Current Visit: Yes Status: Chronic Assessment and plan: Status post debridement. Appreciate surgical recommendations. Qualifiers: Laterality: unspecified laterality Qualified Code(s): L89.300 - Pressure ulcer of unspecified buttock, unstageable Oncology: Subj Interval history: Mr. Miller continues to have pain about his decubitus ulcer. He is unable to stand under his own care. He requires 2 person assist to stand. He is yet to ambulate. Outside of his buttock pain denies any other new aches or pains. He has chronic back pain. Denies any fever, chills or symptoms of infection. He is tolerating Casodex well. When discussing goals of care, he would like to return home. He was previously at [facility] and had a bad experience. - Constitutional General appearance: cooperative, disheveled, no acute distress - Head Head exam: Present: atraumatic, normal inspection, normocephalic - Eye Eye exam: Present: normal appearance, conjuntiva pink, sclera anicteric - ENT ENT exam: Present: mucous membranes moist, normal oropharynx - Neck Neck exam: Present: full ROM, normal inspection - Respiratory Respiratory exam: Present: decreased breath sounds - Cardiovascular Cardiovascular exam: Present: RRR - GI/Abdominal GI/Abdominal exam: Present: normal bowel sounds, soft - Extremities Exam Extremities exam: Present: calf tenderness, pedal edema - Neurological Exam Neurological exam: Present: alert, CN II-XII intact, oriented X3 Oncology: Obj Data - Labs CBC & Chem 7: 10/27/18 04:00 10/27/18 04:00 - Imaging and cardiology Other Images Status: image reviewed by me Additional comments: MRI OF THE CERVICAL SPINE WITHOUT CONTRAST; MRI OF THE THORACIC SPINE WITHOUT CONTRAST 10/26/2018 9:33 pm 1. Diffusely heterogeneous marrow with patchy marrow edema in the cervical and thoracic spine may relate to a marrow replacing process such as diffuse osseous metastatic disease. Follow-up postcontrast MRI of the spine may be helpful for further evaluation. 2. Multilevel degenerative changes in the cervical and thoracic spine. The cervical and thoracic spinal canal are not well evaluated due to motion MRI OF THE LUMBAR SPINE WITHOUT CONTRAST, 10/26/2018 9:34 pm IMPRESSION: Limited exam due to artifact Heterogeneous marrow signal suggesting diffuse bone metastases Multilevel degenerative disc disease as described. See above for detailed description of each level. Question clumping of the nerve roots in the lower lumbar spine. This could be artifactual or due to adhesive arachnoiditis artifact. Consult Discharge Plan - Plan Referrals: Kolton Baugh MD [Non-Partnered Physician] - (Please make an appointment for follow-up in wound care, approximately one week after patient is to be discharged) Nadege Jarquin CNP [Advanced Practice Nurse] - 11/06/18 3:00 pm NONE,PCP [Primary Care Provider] - Prescriptions: Cefepime HCl [Maxipime] 2,000 mg IVPB Q12HR #30 vial metroNIDAZOLE [Flagyl] 500 mg PO TID #42 tablet Vancomycin HCl in Dextrose 5 % [Vancomycin 750 mg/150 ml Bag] 750 mg IV DAILY #15 [email or web address] Inpatient Charges Provider: Dr. James Storey Follow up - Inpatient: [id number]
[2018-10-28 17:26] LABS: eGFR For African Americans > 60 (> 60); eGFR For Non-African Americans > 60 (> 60)
[2018-10-29] MEDS: *HR* Methadone 10 MG TABLET PO SCH ×3 (01:07→17:38)
[2018-10-29 04:03] LABS: INR 1.3; Prothrombin Time 14.4 Seconds (9.4-12.1)
[2018-10-29] MEDS: *HR* OxyCODONE Immed Rel 5 MG TABLET PO PRN ×2 (05:32→20:07)
[2018-10-29] MEDS: Ascorbic Acid 500 MG TABLET PO SCH (05:33)
[2018-10-29] MEDS: Cefepime HCl 2,000 MG in 0.9 % Sodium Chloride Mini Bag 100 ML IVPB SCH ×2 (05:33→17:40)
[2018-10-29] MEDS: Insulin LISPRO 300 UNITS/3 ML VIAL SQ SCH ×4 (07:18→21:46)
[2018-10-29] MEDS: Bicalutamide 50 MG TABLET PO SCH (09:19)
[2018-10-29] MEDS: Bumetanide 1 MG TABLET PO SCH (09:20)
[2018-10-29] MEDS: metroNIDAZOLE 500 MG TABLET PO SCH ×3 (09:20→20:07)
[2018-10-29] MEDS: Metoprolol XL (24 HR) Succ 25 MG TAB.ER.24H PO SCH (09:20)
[2018-10-29] MEDS: Isosorbide MONOnitrate (24 HR) 30 MG TAB.ER.24H PO SCH (09:20)
[2018-10-29] MEDS: Zinc Sulfate 220 MG CAPSULE PO SCH (09:20)
[2018-10-29] MEDS: Cyanocobalamin (B-12) 1,000 MCG TABLET PO SCH (09:20)
[2018-10-29 09:50] LABS: Hematocrit 23.7 % (37.5-50.1); Hemoglobin 7.4 g/dL (12.9-16.9)
[2018-10-29 10:06] LABS: BUN/Creatinine Ratio 18 (6-26); Blood Urea Nitrogen 18 mg/dL (8-23); Calcium 7.4 mg/dL (8.6-10.3); Carbon Dioxide 31 mEq/L (23-29); Chloride 104 mEq/L (98-107); Glucose 79 mg/dL (70-105); Osmolality,Calculated 289 (280-300); Potassium 3.7 mEq/L (3.5-5.1); Sodium 139 mEq/L (136-145); eGFR For African Americans > 60 (> 60); eGFR For Non-African Americans > 60 (> 60)
--- NOTE | 2018-10-29 11:31 | Internal Med Progress Note ---
<Chrissy Shields C - Last Filed: 10/29/18 15:24> Hospitalist Progress Note - Encounter Date of Encounter: 10/29/18 Time of Encounter: 09:03 - Subjective Interval History: No acute events overnight. Patient states that he feels relatively well today. States that having the MRI over the weekend was the worst experience he has ever had and that he does not want to do that again. Patient also states that he has less than 6 months to live and that he doesn't fear dying. He states that he just wants to go home. stated that she still wanted to have the biopsy done to see what it is. Discussed possible palliative/hospice care with patient and . Decision was made to consult palliative to discuss this further. Biospy on hold until goals of care discussion with patient and . - Exam Vitals: Temp Pulse Resp BP Pulse Ox 98.2 F 59 16 115/58 94 10/29/18 07:46 10/29/18 07:46 10/29/18 07:46 10/29/18 07:46 10/29/18 07:46 Exam: Gen: No acute distress. Appears comfortable. Eyes: anicteric sclerae, moist conjunctivae HENT: Atraumatic; moist mucous membranes Neck: Trachea midline, supple Cardiac: Regular rate, irregular rhythm, no murmur, +S1/S2. Pulmonary: CTA bilaterally, no wheezes, rales or rhonchi, equal chest expansion Abdomen: soft, nontender, no guarding. No masses or hepatosplenomegaly MSK: stasis dermatitis of both legs unchanged Extremities: no edema, nontender calf, dressing in place over bilateral ankles Neuro: no focal deficits. Skin: skin warm, dry intact. Sacral dressing in place. Psych: A&O (self, place, year) mood and affect appropriate - Assessment and Plan (1) Bone lesion Current Visit: Yes Status: Acute Assessment and Plan: CT abd/pelvis revealed diffuse sclerotic lesions throughout the visualized skeleton compatible with metastatic disease until proven otherwise. MRI C-spine, T-spine, L-spine revealed diffuse metastatic disease. PSA is elevated. Holding off Bone Biopsy today pending goals of care discussion, will plan for tomorrow if patient wants to proceed. (2) Anemia Current Visit: Yes Status: Chronic Assessment and Plan: Likely secondary to chronic disease (baseline hgb 7-8) No signs of active bleeding He has never had a colonoscopy. Outpatient follow-up. (3) Decubitus ulcer of buttock, unstageable Current Visit: Yes Status: Chronic Assessment and Plan: Left buttock sacral decubitus ulcer due to sedentary lifestyle and urinary/fecal incontinence CT abd/pelvis 10/17/18 - sacral ulcer in the left buttock with soft tissue gas, suspicion for early necrotizing fasciitis s/p Excisional debridement and washout of the sacral ulcer on 10/18/[address] Baugh No pre-op or intra-op wound cx obtained. Previous cx Mar 2018 + providentia and MSSA. Wound cx post-op positive for scant lock-sensitive P. mirabilis. Continue vancomycin, cefepime, and flagyl, outpatient f/u with ID 11/06 BMP, CBC and ESR/CRP while on IV antibiotics (4) Stasis dermatitis of both legs Current Visit: Yes Status: Chronic Assessment and Plan: Bilateral chronic Wound care following Continue pain management and supportive care (5) Atrial fibrillation Current Visit: Yes Status: Chronic Assessment and Plan: Chronic, controlled Continue to hold Xarelto for bone biopsy, continue Lovenox Continue Torpol (6) Chronic diastolic (congestive) heart failure Current Visit: Yes Status: Chronic Assessment and Plan: chronic, stable, without acute exacerbation (7) Diabetes Current Visit: Yes Status: Chronic Assessment and Plan: Continue LD SSI ADA diet DVT Prophylaxis: Lovenox - Time Spent with Patient Total time spent is greater than 50% in coordination of care (as documented) at patient's floor/unit and/or counseling patient: Internal Medicine: Result - Labs CBC & Chem 7: 10/29/18 09:20 10/29/18 09:20 Labs: Short CBC 10/29/18 Range/Units 09:20 Hgb 7.4 L (12.9-16.9) g/dL Hct 23.7 L (37.5-50.1) % BMP 10/28/18 10/29/18 16:18 09:20 Sodium 139 Potassium 3.7 Chloride 104 Carbon Dioxide 31 H BUN 18 Creatinine 1.13 1.02 Glucose 79 Calcium 7.4 L - ABG Interpretation ABG results: PT/INR, D-dimer PT 14.4 Seconds (9.4-12.1) H 10/29/18 03:35 Consult Discharge Plan - Plan Referrals: Kolton Baugh MD [Non-Partnered Physician] - (Please make an appointment for follow-up in wound care, approximately one week after patient is to be discharged) Nadege Jarquin CNP [Advanced Practice Nurse] - 11/06/18 3:00 pm NONE,PCP [Primary Care Provider] - Prescriptions: metroNIDAZOLE [Flagyl] 500 mg PO TID #42 tablet Cefepime HCl [Maxipime] 2,000 mg IVPB Q12HR #30 vial Vancomycin HCl in Dextrose 5 % [Vancomycin 750 mg/150 ml Bag] 750 mg IV DAILY #15 [email or web address] <Pura Desir - Last Filed: 10/29/18 19:56> Hospitalist Progress Note - Encounter Date of Encounter: 10/29/18 - Exam Vitals: Temp Pulse Resp BP Pulse Ox 97.9 F 71 16 115/67 92 10/29/18 14:21 10/29/18 14:21 10/29/18 14:21 10/29/18 14:21 10/29/18 14:21 - Assessment and Plan (1) Anemia Current Visit: Yes Status: Chronic (2) Atrial fibrillation Current Visit: Yes Status: Chronic (3) Stasis dermatitis of both legs Current Visit: Yes Status: Chronic (4) Diabetes Current Visit: Yes Status: Chronic (5) Decubitus ulcer of buttock, unstageable Current Visit: Yes Status: Chronic (6) DVT prophylaxis Current Visit: Yes Status: Acute (7) Bone lesion Current Visit: Yes Status: Acute (8) Chronic diastolic (congestive) heart failure Current Visit: Yes Status: Chronic - Time Spent with Patient Total time spent is greater than 50% in coordination of care (as documented) at patient's floor/unit and/or counseling patient: Internal Medicine: Result - Labs CBC & Chem 7: 10/29/18 09:20 10/29/18 09:20 Labs: Short CBC 10/29/18 Range/Units 09:20 Hgb 7.4 L (12.9-16.9) g/dL Hct 23.7 L (37.5-50.1) % BMP 10/29/18 09:20 Sodium 139 Potassium 3.7 Chloride 104 Carbon Dioxide 31 H BUN 18 Creatinine 1.02 Glucose 79 Calcium 7.4 L - ABG Interpretation ABG results: PT/INR, D-dimer PT 14.4 Seconds (9.4-12.1) H 10/29/18 03:35 - Attending Attestation I examined this patient and my medical decision-making was reviewed with the Resident Physician. I agree with the documented findings, disposition and treatment plan as described except to the extent set forth below. <Chrissy Shields - Last Filed: 10/29/18 15:24> (2) Anemia Qualifiers: Anemia type: unspecified type Qualified Code(s): D64.9 - Anemia, unspecified (3) Decubitus ulcer of buttock, unstageable Qualifiers: Laterality: unspecified laterality Qualified Code(s): L89.300 - Pressure ulcer of unspecified buttock, unstageable (5) Atrial fibrillation Qualifiers: Atrial fibrillation type: chronic Qualified Code(s): I48.2 - Chronic atrial fibrillation (7) Diabetes Qualifiers: Diabetes mellitus type: type 2 Diabetes mellitus prison insulin use: without intermediate designer use Diabetes mellitus complication status: with kidney complications Diabetes mellitus complication detail: with chronic kidney disease Chronic kidney disease stage: stage 3 (moderate) Qualified Code(s): E11.22 - Type 2 diabetes mellitus with diabetic chronic kidney disease; N18.3 - Chronic kidney disease, stage 3 (moderate) <Pura Desir - Last Filed: 10/29/18 19:56> (1) Anemia Qualifiers: Anemia type: unspecified type Qualified Code(s): D64.9 - Anemia, unspecified (2) Atrial fibrillation Qualifiers: Atrial fibrillation type: chronic Qualified Code(s): I48.2 - Chronic atrial fibrillation (4) Diabetes Qualifiers: Diabetes mellitus type: type 2 Diabetes mellitus prison insulin use: without intermediate designer use Diabetes mellitus complication status: with kidney complications Diabetes mellitus complication detail: with chronic kidney disease Chronic kidney disease stage: stage 3 (moderate) Qualified Code(s): E11.22 - Type 2 diabetes mellitus with diabetic chronic kidney disease; N18.3 - Chronic kidney disease, stage 3 (moderate) (5) Decubitus ulcer of buttock, unstageable Qualifiers: Laterality: unspecified laterality Qualified Code(s): L89.300 - Pressure ulcer of unspecified buttock, unstageable
--- NOTE | 2018-10-29 13:12 | Oncology Inp Progress Note ---
Date of Encounter: 10/29/18 Time of Encounter: 13:10 (1) Prostate cancer Current Visit: Yes Status: Acute Assessment and plan: He was found to have elevated PSA with multiple sclerotic bony lesions. MRI imaging of the cervical, thoracic or lumbar spine do not reveal any chon evidence of cord impingement. I had a goals of care conversation with the patient and today. He is very debilitated with an ECOG performance status of 4. It is an almost certainty that he will be unable to care for himself after discharge. Discharge planning is currently underway for group home facility. Even with prostate cancer therapy, his quality life will not improve from this outside of possible improvement of anemia. Pursuing prostate cancer therapy will prolong his life will likely be in his current state. This was discussed with the patient and his in no uncertain terms today. Given his generalized debility and other medical comorbidities, I think hospice is very reasonable. On the [place], Lupron will be well tolerated as well. We discussed both of these scenarios in great detail. Patient is uncertain what he wants to pursue. As stated above, he frequently fell asleep during his conversations. It is unclear if the has a good grasp of the gravity of the situation as well. If the patient is not hold a strong opinion as to wanting to pursue treatment, I think hospice would be a better option for this gentleman. We will be by to see him again tomorrow and discuss again. Palliative care has been consult to help with this decision. For now, recommended proceeding with biopsy as he remains undecided. In addition, continue physical therapy and occupational therapy evaluation as he will require group home facility placement. Continue Casodex as prescribed after discharge. (2) Anemia Current Visit: Yes Status: Chronic Assessment and plan: Indices most consistent with anemia chronic disease likely secondary to both metastatic prostate cancer as well as sacral decubitus ulcer. B12 deficiency also noted. He is currently on oral B12 with adequate stores. May continue oral iron as well. This should improve with time and treatment of his prostate cancer and decubitus ulcer. Indices are stable. Qualifiers: Qualified Code(s): D64.9 - Anemia, unspecified (3) Decubitus ulcer of buttock, unstageable Current Visit: Yes Status: Chronic Assessment and plan: Status post debridement. Appreciate surgical recommendations. Qualifiers: Qualified Code(s): L89.300 - Pressure ulcer of unspecified buttock, unstageable Oncology: Subj Interval history: Mr. Miller is resting comfortably in bed. His significant other is at the bedside. He continues to have right buttock pain from his surgery. No fever, chill or symptom of infection. No headache, blurred or double vision. He has not been out of bed today. He requires at least 2 person assist for all activities. No new aches or pains outside of his back or buttock. No fever, chill or symptom of infection. He is scheduled for a bone biopsy today. However, he was having reservations about proceeding. I held goals of care discussion with the patient today. The patient was difficult to keep awake during this conversation. - Constitutional General appearance: cooperative, disheveled, no acute distress - Head Head exam: Present: atraumatic, normal inspection, normocephalic - Eye Eye exam: Present: normal appearance, conjuntiva pink, sclera anicteric - ENT ENT exam: Present: mucous membranes moist, normal oropharynx - Neck Neck exam: Present: full ROM, normal inspection - Respiratory Respiratory exam: Present: decreased breath sounds - Cardiovascular Cardiovascular exam: Present: RRR - GI/Abdominal GI/Abdominal exam: Present: normal bowel sounds, soft - Extremities Exam Extremities exam: Present: pedal edema - Neurological Exam Neurological exam: Present: alert, CN II-XII intact - Skin Skin exam: Present: dry Oncology: Obj Data - Labs CBC & Chem 7: 10/29/18 09:20 10/29/18 09:20 Consult Discharge Plan - Plan Referrals: Kolton Baugh MD [Non-Partnered Physician] - (Please make an appointment for follow-up in wound care, approximately one week after patient is to be discharged) Nadege Jarquin CNP [Advanced Practice Nurse] - 11/06/18 3:00 pm NONE,PCP [Primary Care Provider] - Prescriptions: Cefepime HCl [Maxipime] 2,000 mg IVPB Q12HR #30 vial metroNIDAZOLE [Flagyl] 500 mg PO TID #42 tablet Vancomycin HCl in Dextrose 5 % [Vancomycin 750 mg/150 ml Bag] 750 mg IV DAILY #15 [email or web address] Inpatient Charges Provider: Dr. James Storey Follow up - Inpatient: [id number]
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
[2018-10-29] MEDS ORDERED: 0.9 % Sodium Chloride Mini Bag 100 ML ONE (17:25)
[2018-10-29] MEDS ORDERED: *HR* Enoxaparin 80 MG/0.8 ML SYRINGE SQ ONE (18:00)
[2018-10-30] MEDS: *HR* Methadone 10 MG TABLET PO SCH ×3 (00:28→17:23)
[2018-10-30] MEDS: *HR* OxyCODONE Immed Rel 5 MG TABLET PO PRN ×2 (02:37→10:16)
[2018-10-30 06:04] LABS: BUN/Creatinine Ratio 18 (6-26); Blood Urea Nitrogen 18 mg/dL (8-23); Calcium 7.4 mg/dL (8.6-10.3); Carbon Dioxide 28 mEq/L (23-29); Chloride 104 mEq/L (98-107); Glucose 87 mg/dL (70-105); Osmolality,Calculated 291 (280-300); Potassium 3.5 mEq/L (3.5-5.1); Sodium 140 mEq/L (136-145); eGFR For African Americans > 60 (> 60); eGFR For Non-African Americans > 60 (> 60)
[2018-10-30] MEDS: Cefepime HCl 2,000 MG in 0.9 % Sodium Chloride Mini Bag 100 ML IVPB SCH ×2 (07:44→18:38)
[2018-10-30] MEDS: Bumetanide 1 MG TABLET PO SCH (07:45)
[2018-10-30] MEDS: metroNIDAZOLE 500 MG TABLET PO SCH ×3 (07:45→22:06)
[2018-10-30] MEDS: Metoprolol XL (24 HR) Succ 25 MG TAB.ER.24H PO SCH (07:45)
[2018-10-30] MEDS: Cyanocobalamin (B-12) 1,000 MCG TABLET PO SCH (07:45)
[2018-10-30] MEDS: Sennosides 8.6 MG TABLET PO SCH (07:45)
[2018-10-30] MEDS: Insulin LISPRO 300 UNITS/3 ML VIAL SQ SCH ×4 (07:45→22:07)
[2018-10-30] MEDS: Isosorbide MONOnitrate (24 HR) 30 MG TAB.ER.24H PO SCH (07:45)
[2018-10-30] MEDS: Ascorbic Acid 500 MG TABLET PO SCH (07:45)
[2018-10-30] MEDS: Bicalutamide 50 MG TABLET PO SCH (07:47)
[2018-10-30] MEDS: Zinc Sulfate 220 MG CAPSULE PO SCH (07:47)
--- NOTE | 2018-10-30 08:13 | Internal Med Progress Note ---
<Chrissy Shields - Last Filed: 10/30/18 15:16> Hospitalist Progress Note - Encounter Date of Encounter: 10/30/18 Time of Encounter: 09:30 - Subjective Interval History: 929 During transport for bone biopsy, patient stated that he didn't want to have the procedure done and refused to proceed. I was asked asked by patient's nurse to speak with the patient. I explained the the patient the benefits of having the procedure done and he stated that he felt there was no benefit as he has cancer and feels there is nothing more to be done. He stated that he did not want to suffer and he did not want to do the procedure. He did not remember the conversation that he has with his and Dr. Genao yesterday and continued to refuse the procedure. He was returned to his room. 1330 Family meeting was conducted with patient, his , Dr. Genao, Dr. Desir, Dr. Shields, and Dr. Lucio to discuss treatment plan. Patient now states in his 's presence that he wants to have the procedure done and would like to schedule for procedure tomorrow and understands benefits and risks. - Exam Vitals: Temp Pulse Resp BP Pulse Ox 98.0 F 55 16 125/44 98 10/30/18 06:27 10/30/18 06:27 10/30/18 06:27 10/30/18 06:27 10/30/18 06:27 Exam: Gen: No acute distress. Appears comfortable. Eyes: anicteric sclerae, moist conjunctivae HENT: Atraumatic; moist mucous membranes Neck: Trachea midline, supple Cardiac: Regular rate, irregular rhythm, no murmur, +S1/S2. Pulmonary: CTA bilaterally, no wheezes, rales or rhonchi, equal chest expansion Abdomen: soft, nontender, no guarding. No masses or hepatosplenomegaly MSK: stasis dermatitis of both legs unchanged Extremities: no edema, nontender calf, dressing in place over bilateral ankles Neuro: no focal deficits. Skin: skin warm, dry intact. Sacral dressing in place, dry. Psych: mood and affect appropriate - Assessment and Plan (1) Bone lesion Current Visit: Yes Status: Acute Assessment and Plan: CT abd/pelvis revealed diffuse sclerotic lesions throughout the visualized skeleton compatible with metastatic disease until proven otherwise. MRI C-spine, T-spine, L-spine revealed diffuse metastatic disease. PSA is elevated. Refused biopsy this morning, now agreeable to proceed, plan for tomorrow. (2) Anemia Current Visit: Yes Status: Chronic Assessment and Plan: Likely secondary to chronic disease (baseline hgb 7-8) has been stable throughout admission No signs of active bleeding He has never had a colonoscopy. Outpatient follow-up. (3) Decubitus ulcer of buttock, unstageable Current Visit: Yes Status: Chronic Assessment and Plan: Left buttock sacral decubitus ulcer due to sedentary lifestyle and urinary/fecal incontinence CT abd/pelvis 10/17/18 - sacral ulcer in the left buttock with soft tissue gas, suspicion for early necrotizing fasciitis s/p Excisional debridement and washout of the sacral ulcer on 10/18/[address] Baugh No pre-op or intra-op wound cx obtained. Previous cx Mar 2018 + providentia and MSSA. Wound cx post-op positive for scant lock-sensitive P. mirabilis. Continue vancomycin, cefepime, and flagyl, outpatient f/u with ID 11/06 BMP, CBC and ESR/CRP while on IV antibiotics (4) Stasis dermatitis of both legs Current Visit: Yes Status: Chronic Assessment and Plan: Bilateral chronic Wound care following Continue pain management and supportive care (5) Atrial fibrillation Current Visit: Yes Status: Chronic Assessment and Plan: Chronic, controlled Continue to hold Xarelto for bone biopsy today (6) Chronic diastolic (congestive) heart failure Current Visit: Yes Status: Chronic Assessment and Plan: chronic, stable, without acute exacerbation (7) Diabetes Current Visit: Yes Status: Chronic Assessment and Plan: Continue LD SSI ADA diet, NPO at midnight DVT Prophylaxis: Lovenox - Time Spent with Patient Total time spent is greater than 50% in coordination of care (as documented) at patient's floor/unit and/or counseling patient: Internal Medicine: Result - Labs CBC & Chem 7: 10/29/18 09:20 10/30/18 05:25 Labs: Short CBC 10/29/18 Range/Units 09:20 Hgb 7.4 L (12.9-16.9) g/dL Hct 23.7 L (37.5-50.1) % BMP 10/29/18 10/30/18 09:20 05:25 Sodium 139 140 Potassium 3.7 3.5 Chloride 104 104 Carbon Dioxide 31 H 28 BUN 18 18 Creatinine 1.02 1.00 Glucose 79 87 Calcium 7.4 L 7.4 L - ABG Interpretation ABG results: PT/INR, D-dimer PT 14.4 Seconds (9.4-12.1) H 10/29/18 03:35 Consult Discharge Plan - Plan Referrals: Kolton Baugh MD [Non-Partnered Physician] - (Please make an appointment for follow-up in wound care, approximately one week after patient is to be discharged) Nadege Jarquin ONLINE MARKETING SPECIALIST [Advanced Practice Nurse] - 11/06/18 3:00 pm NONE,PCP [Primary Care Provider] - Prescriptions: metroNIDAZOLE [Flagyl] 500 mg PO TID #42 tablet Cefepime HCl [Maxipime] 2,000 mg IVPB Q12HR #30 vial Vancomycin HCl in Dextrose 5 % [Vancomycin 750 mg/150 ml Bag] 750 mg IV DAILY #15 [email or web address] <Pura Desir - Last Filed: 10/30/18 17:47> Hospitalist Progress Note - Encounter Date of Encounter: 10/30/18 - Exam Vitals: Temp Pulse Resp BP Pulse Ox 98.8 F 93 18 115/63 96 10/30/18 14:50 10/30/18 14:50 10/30/18 14:50 10/30/18 14:50 10/30/18 14:50 - Assessment and Plan (1) Anemia Current Visit: Yes Status: Chronic (2) Atrial fibrillation Current Visit: Yes Status: Chronic (3) Stasis dermatitis of both legs Current Visit: Yes Status: Chronic (4) Diabetes Current Visit: Yes Status: Chronic (5) Decubitus ulcer of buttock, unstageable Current Visit: Yes Status: Chronic (6) DVT prophylaxis Current Visit: Yes Status: Acute (7) Bone lesion Current Visit: Yes Status: Acute (8) Chronic diastolic (congestive) heart failure Current Visit: Yes Status: Chronic - Time Spent with Patient Total time spent is greater than 50% in coordination of care (as documented) at patient's floor/unit and/or counseling patient: Internal Medicine: Result - Labs CBC & Chem 7: 10/29/18 09:20 10/30/18 05:25 Labs: BMP 10/30/18 05:25 Sodium 140 Potassium 3.5 Chloride 104 Carbon Dioxide 28 BUN 18 Creatinine 1.00 Glucose 87 Calcium 7.4 L - ABG Interpretation ABG results: PT/INR, D-dimer PT 14.9 Seconds (9.4-12.1) H 10/30/18 07:55 - Attending Attestation I examined this patient and my medical decision-making was reviewed with the Resident Physician. I agree with the documented findings, disposition and treatment plan as described except to the extent set forth below. <Chrissy Shields - Last Filed: 10/30/18 15:16> (2) Anemia Qualifiers: Anemia type: unspecified type Qualified Code(s): D64.9 - Anemia, unspecified (3) Decubitus ulcer of buttock, unstageable Qualifiers: Laterality: unspecified laterality Qualified Code(s): L89.300 - Pressure ulcer of unspecified buttock, unstageable (5) Atrial fibrillation Qualifiers: Atrial fibrillation type: chronic Qualified Code(s): I48.2 - Chronic atrial fibrillation (7) Diabetes Qualifiers: Diabetes mellitus type: type 2 Diabetes mellitus half-way insulin use: without half-way use Diabetes mellitus complication status: with kidney complications Diabetes mellitus complication detail: with chronic kidney disease Chronic kidney disease stage: stage 3 (moderate) Qualified Code(s): E11.22 - Type 2 diabetes mellitus with diabetic chronic kidney disease; N18.3 - Chronic kidney disease, stage 3 (moderate) <Pura Desir - Last Filed: 10/30/18 17:47> (1) Anemia Qualifiers: Anemia type: unspecified type Qualified Code(s): D64.9 - Anemia, unspecified (2) Atrial fibrillation Qualifiers: Atrial fibrillation type: chronic Qualified Code(s): I48.2 - Chronic atrial fibrillation (4) Diabetes Qualifiers: Diabetes mellitus type: type 2 Diabetes mellitus half-way insulin use: without superintendent marine [employer] use Diabetes mellitus complication status: with kidney complications Diabetes mellitus complication detail: with chronic kidney disease Chronic kidney disease stage: stage 3 (moderate) Qualified Code(s): E11.22 - Type 2 diabetes mellitus with diabetic chronic kidney disease; N18.3 - Chronic kidney disease, stage 3 (moderate) (5) Decubitus ulcer of buttock, unstageable Qualifiers: Laterality: unspecified laterality Qualified Code(s): L89.300 - Pressure ulcer of unspecified buttock, unstageable
[2018-10-30 08:36] LABS: INR 1.3; Prothrombin Time 14.9 Seconds (9.4-12.1)
--- NOTE | 2018-10-30 11:30 | Palliative Progress Note ---
Date of Encounter: 10/30/18 Time of Encounter: 10:50 - Assessment and plan (1) Sacral pain Current Visit: Yes Status: Acute Assessment and plan: continue current pain medications: Methadone 20 mg q8hrs Oxycodone 10 mg q6hr prn, nurse instructed to premedicate pt before care and turns. (2) Goals of care, counseling/discussion Current Visit: Yes Status: Acute Assessment and plan: [id number] dicussed with pt, and son. Updated on plan for bone biopsy today as discussed with primary hospitalist. Family confirmed that they d want to proceed with biopsy and oncology treatment. Discussed disposition as pt has expressed the wish to return home. is unable to care for pt if he cannot transfer and pivot. Explained that rehab will be the best next step to attempt to gain more strength and improve functional status. Patient agrees for rehab placement once stable for discharge. [id number]: additional discussion about advanced care planning. Pt wants and son to be his MPOA. POA forms left with pt to be filled out. Discussed pros and cons of resuscitation, patient and family opted for DNR. OH stated form filled and copies put in the pt's chart. Palliative care will continue to follow. (3) Decubitus ulcer of buttock, unstageable Current Visit: Yes Status: Chronic Assessment and plan: s/p Excisional debridement and washout of the sacral ulcer on 10/18/[address] Baugh ongoing antibiotics per primary hospitalist and ID. Qualifiers: Laterality: unspecified laterality Qualified Code(s): L89.300 - Pressure ulcer of unspecified buttock, unstageable (4) Weakness Current Visit: No Status: Chronic Assessment and plan: s/p Excisional debridement and washout of the sacral ulcer on 10/18/[address] Baugh ongoing antibiotics per primary hospitalist and ID. (5) Bone lesion Current Visit: Yes Status: Acute Assessment and plan: Patient and elected to proceed with bone biopsy. (6) Palliative care encounter Current Visit: Yes Status: Acute - Time Spent With Patient Total time spent is greater than 50% in coordination of care (as documented) at patient's floor/unit and/or counseling patient: 45 minutes Greater than 35 minutes - Subjective Interval history: Patient today was AAOx3, appears more comfortable. He used 4 doses of Oxycodone in 24hrs. He is still having pain but it's tolerable. He denies any SOB, nausea, vomiting. Chewing on tobacco. - Constitutional Vitals: Abnormal lab results WBC 3.8 K/mcL (4.3-11.1) L 10/21/18 04:10 RBC 2.55 M/mcL (4.19-5.50) L 10/27/18 04:00 Hgb 7.4 g/dL (12.9-16.9) L 10/29/18 09:20 Hct 23.7 % (37.5-50.1) L 10/29/18 09:20 MCHC 31.0 g/dL (31.6-35.5) L 10/27/18 04:00 RDW 17.2 % (11.5-14.5) H 10/27/18 04:00 MPV 9.0 fL (9.4-12.4) L 10/25/18 04:30 Nucleated RBCs/100 WBC 0.5 /100 WBC (0) H 10/20/18 05:09 Present (Not Present) A 10/22/18 06:09 1+ (Not Present) A 10/22/18 06:09 Present (Not Present) A 10/22/18 06:09 ESR 63 mm/hr (0-10) H 10/23/18 11:30 PT 14.9 Seconds (9.4-12.1) H 10/30/18 07:55 Potassium 3.4 mEq/L (3.5-5.1) L 10/25/18 04:30 Carbon Dioxide 31 mEq/L (23-29) H 10/29/18 09:20 BUN 25 mg/dL (8-23) H 10/24/18 05:25 31 (6-26) H 10/24/18 05:25 Glucose 68 mg/dL (70-105) L 10/26/18 04:15 POC Glucose 128 mg/dL (70-99) H 10/29/18 20:55 302 (280-300) H 10/19/18 05:30 Calcium 7.4 mg/dL (8.6-10.3) L 10/30/18 05:25 Phosphorus 2.6 mg/dL (2.7-4.5) L 10/26/18 04:15 299 Units/L (34-104) H 10/24/18 05:25 24 mg/L (Less than 10) H 10/23/18 11:30 5.3 g/dL (6.4-8.9) L 10/24/18 05:25 2.3 g/dL (3.5-5.7) L 10/24/18 05:25 0.8 (1.1-2.2) L 10/24/18 05:25 Prostate Specific Ag 267.00 ng/mL (Less than 4.00) H 10/23/18 16:03 Vitamin B12 > 1500 pg/mL (250-1100) H 10/29/18 03:35 Vancomycin Trough 14 mcg/mL (5-10) H 10/28/18 16:18 Crossmatch See Detail 10/24/18 17:17 Exam: Gen: No acute distress. Appears uncomfortable. Eyes: anicteric sclerae, moist conjunctivae HENT: Atraumatic; moist mucous membranes Neck: Trachea midline, supple Cardiac: irregular rhythm, no murmur, +S1/S2. Pulmonary: CTA bilaterally, no wheezes, rales or rhonchi, equal chest expansion Abdomen: soft, nontender, no guarding. No masses or hepatosplenomegaly Extremities: no edema, nontender calf, dressing in place over bilateral ankles, stasis dermatitis of both legs Neuro: no focal deficits. Skin: skin warm, dry, Sacral dressing in place. Psych: A&O (self, place, time) mood and affect appropriate Palliative Quality Palliative Quality: Screen for Code Status: Yes, Screen for Goals of Care: Yes, Screen for Pain: Yes, If Pain Regimen Started, Initiate Bowel Regimen: Yes, Screen for Nausea/Vomitting: Yes Code Status: 10/17/18 20:44 Resuscitation Status: Active [RES] Routine Comment: Resuscitation Status: Full Code - Labs CBC & Chem 7: 10/29/18 09:20 10/30/18 05:25 Labs: Laboratory Results - last 24 hr 10/28/18 10/28/18 10/29/18 11:10 15:57 11:24 PT INR Sodium Potassium Chloride Carbon Dioxide BUN Creatinine Est GFR ( Amer) Est GFR (Non-Af Amer) BUN/Creatinine Ratio Glucose POC Glucose 117 H 164 H 84 Calculated Osmolality Calcium 10/29/18 10/29/18 10/30/18 17:36 20:55 05:25 PT INR Sodium 140 Potassium 3.5 Chloride 104 Carbon Dioxide 28 BUN 18 Creatinine 1.00 Est GFR ( Amer) > 60 Est GFR (Non-Af Amer) > 60 BUN/Creatinine Ratio 18 Glucose 87 POC Glucose 117 H 128 H Calculated Osmolality 291 Calcium 7.4 L 10/30/18 10/30/18 05:29 07:55 PT 14.9 H INR 1.3 Sodium Potassium Chloride Carbon Dioxide BUN Creatinine Est GFR ( Amer) Est GFR (Non-Af Amer) BUN/Creatinine Ratio Glucose POC Glucose 86 Calculated Osmolality Calcium - ABG Interpretation ABG results: PT/INR, D-dimer PT 14.9 Seconds (9.4-12.1) H 10/30/18 07:55 Palliative Scale - Palliative Performance Scale How ambulatory is this patient?: Totally bed bound What is patient's level of activity and evidence of disease?: Unable to do any work, Extensive disease How much self-care assistance does patient require?: Mainly assistance How much oral intake does the patient have?: Normal What is this patient's level of consciousness?: Full or confusion Palliative Performance Score: 40 % Consult Discharge Plan - Plan Referrals: Kolton Baugh MD [Non-Partnered Physician] - (Please make an appointment for follow-up in wound care, approximately one week after patient is to be discharged) Nadege Jarquin, MANUFACTURING CONTROLS ENGINEER [Advanced Practice Nurse] - 11/06/18 3:00 pm NONE,PCP [Primary Care Provider] - Prescriptions: metroNIDAZOLE [Flagyl] 500 mg PO TID #42 tablet Cefepime HCl [Maxipime] 2,000 mg IVPB Q12HR #30 vial Vancomycin HCl in Dextrose 5 % [Vancomycin 750 mg/150 ml Bag] 750 mg IV DAILY #15 raymond
[2018-10-30] MEDS ORDERED: *HR* Midazolam HCl 2 MG/2 ML VIAL IVP ONE (14:16)
[2018-10-30] MEDS ORDERED: *HR* FentaNYL (PF) 100 MCG/2 ML VIAL IVP ONE (14:17)
[2018-10-30] MEDS ORDERED: *HR* Enoxaparin 80 MG/0.8 ML SYRINGE SQ ONE (18:00)
--- NOTE | 2018-10-30 19:48 | Oncology Inp Progress Note ---
Date of Encounter: 10/30/18 Time of Encounter: 17:00 (1) Prostate cancer Current Visit: Yes Status: Acute Assessment and plan: He was found to have elevated PSA with multiple sclerotic bony lesions. MRI imaging of the cervical, thoracic or lumbar spine do not reveal any chon evidence of cord impingement. This is c/w with prostate cancer. They have elected to pursue treatment. For now, recommended proceeding if he agrees, but this will not hold up further treatment. In addition, continue physical therapy and occupational therapy evaluation as he will require senior care facility placement. Continue Casodex as prescribed after discharge. I will set up outpatient f/u with Dr. Cornelius in 2 weeks. We will sign off. (2) Anemia Current Visit: Yes Status: Chronic Assessment and plan: Indices most consistent with anemia chronic disease likely secondary to both metastatic prostate cancer as well as sacral decubitus ulcer. B12 deficiency also noted. He is currently on oral B12 with adequate stores. May continue oral iron as well. This should improve with time and treatment of his prostate cancer and decubitus ulcer. Indices are stable. Qualifiers: Anemia type: unspecified type Qualified Code(s): D64.9 - Anemia, unspecified (3) Decubitus ulcer of buttock, unstageable Current Visit: Yes Status: Chronic Assessment and plan: Status post debridement. Appreciate surgical recommendations. Qualifiers: Laterality: unspecified laterality Qualified Code(s): L89.300 - Pressure ulcer of unspecified buttock, unstageable Oncology: Subj Interval history: He refused to complete biopsy today, and I believe this has been rescheduled for tomorrow. Resting in bed comfortably. No acute change in health. Remains afebrile. Working with PT/OT. Palliative care has met with the patient, , son. MPOA has been assigned to son. He has elected to be DNR. He does want to try therapy for his prostate cancer. - Constitutional General appearance: cooperative, disheveled, no acute distress - Head Head exam: Present: atraumatic, normal inspection, normocephalic - Eye Eye exam: Present: normal appearance, conjuntiva pink, sclera anicteric - ENT ENT exam: Present: mucous membranes moist, normal oropharynx - Neck Neck exam: Present: full ROM, normal inspection - Respiratory Respiratory exam: Present: decreased breath sounds - Cardiovascular Cardiovascular exam: Present: RRR - GI/Abdominal GI/Abdominal exam: Present: normal bowel sounds, soft - Extremities Exam Extremities exam: Present: calf tenderness - Neurological Exam Neurological exam: Present: alert, CN II-XII intact, oriented X3 Oncology: Obj Data - Labs CBC & Chem 7: 10/29/18 09:20 10/30/18 05:25 Consult Discharge Plan - Plan Referrals: Kolton Baugh MD [Non-Partnered Physician] - (Please make an appointment for follow-up in wound care, approximately one week after patient is to be discharged) Nadege Jarquin, CREEL CLERK [Advanced Practice Nurse] - 11/06/18 3:00 pm NONE,PCP [Primary Care Provider] - Prescriptions: Cefepime HCl [Maxipime] 2,000 mg IVPB Q12HR #30 vial metroNIDAZOLE [Flagyl] 500 mg PO TID #42 tablet Vancomycin HCl in Dextrose 5 % [Vancomycin 750 mg/150 ml Bag] 750 mg IV DAILY #15 [email or web address] Inpatient Charges Provider: Dr. aJmes Storey Follow up - Inpatient: [id number]
[2018-10-31] MEDS: *HR* Methadone 10 MG TABLET PO SCH ×2 (01:25→11:31)
[2018-10-31] MEDS: *HR* OxyCODONE Immed Rel 5 MG TABLET PO PRN ×2 (04:38→13:42)
[2018-10-31] MEDS: Cefepime HCl 2,000 MG in 0.9 % Sodium Chloride Mini Bag 100 ML IVPB SCH (05:48)
[2018-10-31] MEDS: Ascorbic Acid 500 MG TABLET PO SCH (05:48)
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
[2018-10-31] MEDS: Insulin LISPRO 300 UNITS/3 ML VIAL SQ SCH ×2 (09:45→12:00)
[2018-10-31 10:33] LABS: INR 1.3; Prothrombin Time 14.7 Seconds (9.4-12.1)
[2018-10-31] MEDS: metroNIDAZOLE 500 MG TABLET PO SCH (11:30)
[2018-10-31] MEDS: Metoprolol XL (24 HR) Succ 25 MG TAB.ER.24H PO SCH (11:31)
[2018-10-31] MEDS: Cyanocobalamin (B-12) 1,000 MCG TABLET PO SCH (11:31)
[2018-10-31] MEDS: Bicalutamide 50 MG TABLET PO SCH (11:31)
[2018-10-31] MEDS: Zinc Sulfate 220 MG CAPSULE PO SCH (11:32)
[2018-10-31] MEDS: Bumetanide 1 MG TABLET PO SCH (11:32)
[2018-10-31] MEDS: Isosorbide MONOnitrate (24 HR) 30 MG TAB.ER.24H PO SCH (11:32)
[2018-10-31] MEDS: Sennosides 8.6 MG TABLET PO SCH (11:32)
--- NOTE | 2018-10-31 11:36 | Physician Discharge Referral ---
ExtendedCare Referral Info Transfer To: [facility] Provider in Charge: Donna Provider in Charge after Transfer: PCP Institutional Level of Care: Skilled - Diagnosis (1) Decubitus ulcer of buttock, unstageable Priority: Primary Status: Acute (2) Prostate cancer Priority: Secondary Status: Acute (3) Stasis dermatitis of both legs Priority: Secondary Status: Chronic (4) Bone lesion Priority: Secondary Status: Acute (5) Anemia Priority: Secondary Status: Chronic (6) Atrial fibrillation Priority: Secondary Status: Chronic (7) Diabetes Priority: Secondary Status: Chronic (8) CKD (chronic kidney disease) stage 3, GFR 30-59 ml/min Priority: Secondary Status: Chronic Prognosis: Fair Aware of Diagnosis: Patient, Family Aware of Prognosis: Patient, Family - Transfer Medications Prescriptions: Bicalutamide [Casodex] 150 mg PO DAILY #30 tablet metroNIDAZOLE [Flagyl] 500 mg PO TID #42 tablet Cefepime HCl [Maxipime] 2,000 mg IVPB Q12HR #30 vial Methadone 20 mg PO Q8HR 10 Days #30 tablet OxyCODONE/APAP 10/325 [Percocet 10/325 MG] 1 each PO Q6HR PRN 2 Days #10 tablet PRN Reason: Breakthrough Pain Vancomycin HCl in Dextrose 5 % [Vancomycin 750 mg/150 ml Bag] 750 mg IV DAILY #15 froz.piggy Home Medications: Metoprolol XL (24 HR) Succ [Toprol Xl] 25 mg PO DAILY 04/30/15 [History] Doxazosin [Cardura] 4 mg PO HS 05/04/18 [History] Acetaminophen [Tylenol] 650 mg PO Q6HR PRN tablet 05/07/18 [Rx] Ascorbic Acid [Vitamin C] 500 mg PO 0630 tablet 05/07/18 [Rx] Cyanocobalamin (B-12) [Vitamin B12] 1,000 mcg PO DAILY tablet 05/07/18 [Rx] Ferrous Sulfate 325 mg PO 0630 tablet 05/07/18 [Rx] Zinc Sulfate 220 mg PO DAILY capsule 05/15/18 [Rx] Bumetanide [Bumex] 2 mg PO DAILY 10/17/18 [History] Isosorbide MONOnitrate (24 HR) [Imdur] 30 mg PO DAILY 10/17/18 [History] Cefepime HCl [Maxipime] 2,000 mg IVPB Q12HR #30 vial 10/23/18 [Rx] Collagenase Oint [Santyl] 1 appl TP DAILY tube 10/23/18 [Rx] Rivaroxaban [Xarelto] 20 mg PO 1700 tablet 10/23/18 [Rx] Sodium Hypochlorite 0.25% [Dakin's (Half-Strength 0.25%)] 1 appl TP DAILY bottle 10/23/18 [Rx] Vancomycin HCl in Dextrose 5 % [Vancomycin 750 mg/150 ml Bag] 750 mg IV DAILY #15 froz.piggy 10/23/18 [Rx] metroNIDAZOLE [Flagyl] 500 mg PO TID #42 tablet 10/23/18 [Rx] Bicalutamide [Casodex] 150 mg PO DAILY #30 tablet 10/31/18 [Rx] Methadone 20 mg PO Q8HR 10 Days #30 tablet 10/31/18 [Rx] OxyCODONE/APAP 10/325 [Percocet 10/325 MG] 1 each PO Q6HR PRN 2 Days #10 tablet 10/31/18 [Rx] Allergies/Adverse Reactions: Allergy/AdvReac Type Severity Reaction Status Date / Time No Known Allergies Allergy Verified 06/14/18 11:57 - Respiratory Orders None Smoking Cessation: Smoking cessation has been advised. For more information, call the [place] Tobacco Quit Line at 3-636-ADOS-NOW. - Lab Orders Lab Orders: CBC (weekly), Other (include drug levels w/frequency) (Vancomycin trough, BMP, ESR, CRP. All weekly.) - Ancillary Orders May use pressure relief devices daily prn - Advance Directives Code Status: DNR-Arrest/Don't Intubate - Mobility Orders Chair (with assist), Bedrest - Rehabiliation Orders Rehab Potential: Fair - Treatments Skin tear care topically daily PRN per policy - Diet Orders No Concentrated Sweets, Cardiac CERTIFICATION: I certify that the transfer of the above named patient to an Extended Care Facility is necessary for the continuing treatment of the diagnosis listed. The above information is true and accurate reflection of patient's current condition. Confidential - Redisclosure prohibited without a patient's written consent.
[2018-10-31] MEDS ORDERED: 0.9 % Sodium Chloride 500 ML ONE (14:40)
--- NOTE | 2018-10-31 16:16 | IR Procedure Note ---
Date of procedure: 10/31/18 Consent Obtained: Written consent Timeout: Correct patient and procedure verified, Correct site verified, Time out performed, Skin prep completed Local anesthetic: Lidocaine 1% Was there an hospital administrative assistant present: No Estimated blood loss (cc): 1 Complications: None; Tolerated procedure well Indications: Osseous metastatic disease, elevated PSA Procedure Performed: CT guided bone bx Site/Technique: Right posterior iliac bone bx done. Single bone core through sclerotic met with bone lesion bx from drill set. Had to advance core antegrade through cannula as would not advance retrograde. Results/Findings (any specimens removed): Single bx done with some difficulty given the degree of sclerosis. Tolerated well. Post Procedure Treatment Plan: Monitoring in pts room. Specimen: to path
[2018-10-31] MEDS ORDERED: Aminoglycoside Consult 1 EACH MC ONE (18:03)
[2018-10-31 18:42] VITALS: BP 100/55
== END 2018-10-31 18:04 | DRG 579 ==
LOC: 3ANU 17:59 → EMEROOARM 17:59 → 3ANU 22:16 → SUATTDRO 23:47
PROVIDERS: ADMIT Pediatrics; ATTEND Internal Medicine